=== PATIENT | female | born 1965 | race African-American/Black ===

== ENCOUNTER 2020-02-06 01:56 | Observation (INO) | payer BC, MEDICAID, SELFPAY ==
[2020-02-06] VITALS (14 sets, daily range): BP systolic 116–172; BP diastolic 63–88; PULSE 59–86; RESP 17–20; TEMP 36–36.5; O2SAT 95–100; BMI 61.4
--- NOTE | ~2020-02-06 | NM_ITS ---
EXAMINATION: NM thelma stress w perfusion DATE: 02/07/2020 09:59 INDICATION: Atypical chest pain. TECHNIQUE: Rest images were obtained following intravenous administration of 11 mCi Tc99m tetrofosmin (Myoview). The patient was infused intravenously with Lexiscan (Regadenoson). Then, 30.1 mCi Tc99m t etrofosmin (Myoview) was administered intravenously, and stress images were obtained. Data was recons tructed into short axis and horizontal and vertical long axis SPECT images. Gated SPECT images were a lso obtained. COMPARISON: None. FINDINGS: There is no definite reversible or fixed perfusion abnormality to suggest ischemia or infar ction. There is normal left ventricular chamber size, wall motion and ejection fraction. Left ventr icular ejection fraction measures >70%. IMPRESSION: 1. Normal myocardial perfusion at rest and during stress. 2. Left ventricular ejection fraction measuring >70%. Reviewed, dictated and finalized at location A.
--- NOTE | ~2020-02-06 | XR_ITS ---
EXAMINATION: XR chest 2V DATE: 02/06/2020 02:40 INDICATION: Left-sided chest pain TECHNIQUE: frontal and lateral views of the chest were obtained. COMPARISON: Chest CT dated 04/26/2019 FINDINGS: The lungs are clear with no focal airspace opacities, pulmonary edema, pleural effusion or pneumothor ax. The cardiomediastinal silhouette is normal. Mild to moderate thoracic spondylosis. IMPRESSION: 1. No acute cardiopulmonary disease. Reviewed, dictated and finalized at location A.
--- NOTE | 2020-02-06 02:07 | ED.EXTPRO ---
HPI - Extremity Problem General Chief complaint: Extremity Problem,Nontraumatic Stated complaint: swollen all over, pain Time Seen by Provider: 02/06/20 02:07 Source: patient Mode of arrival: ambulatory Limitations: no limitations History of Present Illness HPI Narrative: Patient is a 54-year-old female who presents to the emergency department for evaluation of chest pain and lower extremity swelling. Patient reports a nearly 2-week history of worsening leg swelling, feeling as if her abdomen is swollen, and chest pain described as a pressure over her central chest. Pain is mostly constant in nature, no exacerbating or relieving factors. Patient notices the pain at rest. She has some shortness of breath when laying flat. No known history of heart failure although she does have a history of bigeminy per patient. Patient does not follow with a machinist outside. No history of blood clot or coagulopathy. No fever, chills, cough. Last stress test was in 2014 per the patient. Related Data Allergies Allergy/AdvReac Type Severity Reaction Status Date / Time codeine AdvReac Severe EXTREME GI Verified 04/26/19 19:39 UPSET Review of Systems Review of Systems: Narrative: CONSTITUTIONAL: Denies fever, chills, or sweats. EYES: Denies visual changes, redness, or discharge. ENT: Denies rhinorrhea, congestion, sore throat, or otalgia. CARDIOVASCULAR: Reports chest pain and lower extremity edema RESPIRATORY: Denies cough or dyspnea. GASTROINTESTINAL: Denies abdominal pain, nausea, vomiting, or diarrhea. GENITOURINARY: Denies dysuria or hematuria. SKIN: Denies rash or itching. MUSCULOSKELETAL: Denies back pain, joint pain, or myalgia. NEUROLOGIC: Denies headache, numbness, or weakness. [facility] Past Medical History Medical History (Updated 02/06/20 @ 04:09 by Mary Jose MD) Arthritis Chronic anemia Diabetes Hyperlipidemia Hypertension Sleep apnea Surgical History Surgical History (Updated 02/06/20 @ 02:17 by Mary Jose MD) H/O spinal fusion H/O: hysterectomy Family History Family History (Updated 04/24/14 @ 07:13 by DOCTOR UNKNOWN) Grandparent Cerebrovascular accident Mother Cerebrovascular accident Family history of Alzheimer's disease Father Family history of Alzheimer's disease Malignant neoplasm of prostate Sibling Hypertension Family history of heart disease in male family member before age 55 Social History Social History Smoking status: Never smoker Exam Narrative: Exam Narrative: GENERAL: Awake, alert, conversant HEAD: Normocephalic, atraumatic. EYES: PERRLA and EOMI. ENT: Nares clear, no rhinorrhea or epistaxis. Mucous membranes moist. NECK: Supple. CHEST: No respiratory distress, breathing even and non labored HEART: Regular rate, sinus rhythm ABDOMEN: Obese, non distended, non tender EXTREMITIES: Normal range of motion. Pitting edema 3+ to the knees, significant ankle edema, no erythema or calf tenderness SKIN: Warm, dry, no rash. NEURO:No focal deficits. Alert and oriented x3 Course Vital Signs Vital signs: Vital Signs Temperature 36.3 C L 02/06/20 02:02 Pulse Rate 74 02/06/20 02:02 Respiratory Rate 20 02/06/20 02:02 Blood Pressure 172/72 H 02/06/20 02:02 Pulse Oximetry 95 02/06/20 02:02 Temperature 36.3 C L 02/06/20 02:02 Pulse Rate 74 02/06/20 02:02 Respiratory Rate 20 02/06/20 02:02 Blood Pressure 172/72 H 02/06/20 02:02 Pulse Oximetry 95 02/06/20 02:02 MDM - Extremity (Nontraumatic) MDM Narrative Medical decision making narrative: Patient presented for evaluation of chest pain and lower extremity edema. The time of initial assessment, patient does have lower extremity edema, pitting in nature, no sign of cellulitis. No calf tenderness. Patient with out acute ischemic changes on EKG. Symptoms initially seem most consistent with fluid overloaded state, patient is obese, an
[2020-02-06 02:28] LABS: Basophils Percent Auto 0.2 % (0.2-1.2); Eosinophils Absolute Auto 0.2 K/mm3 (0-0.3); Eosinophils Percent Auto 2.3 % (0-4.4); Hemoglobin 13.2 g/dL (12.0-15.0); Immature Granulocyte Absolute 0.02 K/mm3 (0.00-0.031); Immature Granulocyte Percent A 0.2 % (0-0.5); Lymphocytes Absolute Auto 2.18 K/mm3 (0.9-3.2); Lymphocytes Percent Auto 25.2 % (18.3-44.2); Mean Corpuscular HGB Conc 31.4 g/dl (32-36); Mean Corpuscular Hemoglobin 26.8 pg (26-34); Mean Corpuscular Volume 85.2 fl (80-100); Monocytes Absolute Auto 0.7 K/mm3 (0.1-0.6); Monocytes Percent Auto 8.3 % (2.6-8.5); Neutrophils Absolute Auto 5.5 K/mm3 (1.3-6.7); Neutrophils Percent Auto 63.8 % (45.5-73.1); Platelet Count Result 221 k/mm3 (150-375); Red Blood Count 4.93 M/mm3 (4.2-5.4); Red Cell Distribution Width 14.7 % (11.5-14.5); White Blood Count 8.7 K/mm3 (4.5-10.0)
--- NOTE | 2020-02-06 02:28 | ECG_ITS ---
Measurements Intervals [place] Rate: 70 P: 37 [place]: 168 QRS: 25 QRSD: 98 T: 40 QT: 442 QTc: 479 Interpretive Statements SINUS RHYTHM NONSPECIFIC T-WAVE ABNORMALITY BASELINE ARTIFACT- V4-V5 BORDERLINE ECG Electronically Signed On 02-06-2020 7:08:24 CDT by Luis Felipe Orellana D.O.
[2020-02-06] MEDS: NITROGLYCERIN SL 0.4 MG TABLET SUBLINGUAL (02:41)
[2020-02-06] MEDS: ASPIRIN 81 MG CHEWABLE TABLET 324 MG PO (02:41)
[2020-02-06 02:42] LABS: Prothrombin Time 12.6 Seconds (11.1-14.7)
[2020-02-06] MEDS: ACETAMINOPHEN 500 MG TABLET 1000 MG PO (02:42)
[2020-02-06 02:43] LABS: Partial Thromboplastin Time 30.2 SECONDS (22.3-36.8)
[2020-02-06 03:18] LABS: Alanine Aminotransferase 14 U/L (4-35); Alkaline Phosphatase 118 U/L (38-126); Aspartate Amino Transferase 19 U/L (14-36); Bilirubin,Total 0.8 mg/dL (0.2-1.3); Blood Urea Nitrogen 17 mg/dL (7-17); Calcium 9.1 mg/dL (8.4-10.2); Carbon Dioxide 31 mmol/L (22-30); Chloride 104 mmol/L (98-107); Estimated CRCL calculation 121 ml/min; Estimated Glomerular Filt Rate > 60; Glucose 121 mg/dL (65-105); Potassium 4.4 mmol/L (3.4-5.0); Sodium 138 mmol/L (137-145)
[2020-02-06 03:38] LABS: NT Pro B Type Natriuretic Pept 41 PG/ML (5-100); Troponin I < 0.012 ng/mL (0.000-0.034)
--- NOTE | 2020-02-06 05:10 | ADMGEN ---
This patient, Carin Haque, was admitted to IMU Room 213-01. Patient/family oriented to hospital policies and general routines including ID bracelet, bed and alarms, visiting hours, pain management, procedures, bathroom and other care routines, personal items, smoking policy, room service/diet, and visiting hours. Valuables list has been completed. Information on how to activate the Rapid Response Team has been discussed. Patient/Family are encouraged to report perceived risks to care and to ask questions if they do not understand what they are told or what they should do. Darling Craig gave report
[2020-02-06 06:35] LABS: Troponin I < 0.012 ng/mL (0.000-0.034)
--- NOTE | 2020-02-06 07:12 | ECHO_ITS ---
Patient Info Name: Carin Haque Age: 54 years : 1965 Gender: Female Ht: 65 in Wt: 369 lbs BSA: 2.88 m2 HR: 61 bpm BP: 141 / 80 mmHg Heart Rhythm: Sinus Rhythm Technical Quality: Good Exam Date: 02/06/2020 12:31 PM Exam Location: [facility] Pulmonary Patient Status: Outpatient Admit Date: 02/06/2020 Staff Ordering Physician: Mellissa Gardner MD (alex/pearl) Beam Racker: Michele Wakefield, RDCS, RT Attending Provider: Jacob Young MD Exam Type: CA echo dop color flow w con Study Info Indications R06.02 - Shortness of breath Complete two-dimensional, color flow and Doppler transthoracic echocardiogram is performed with contrast to opacify the left ventricle and to improve the deliniation of the left ventricle endocardial borders. Summary 1. Left ventricular chamber dimension is mildly enlarged. 2. Left ventricular systolic function is normal, estimated at 65-70%. 3. There is mildly increased left ventricular wall thickness. 4. Left ventricular septal wall motion is normal. 5. The left ventricular diastolic function is grade I diastolic dysfunction. 6. Left atrial chamber dimension is mildly enlarged. 7. There is mild aortic valve regurgitation. 8. There is mild mitral valve regurgitation. 9. There is mild pulmonic regurgitation. 10. The aorta arch size is mildly dilated measuring 3.70 cm. Left Ventricle Left ventricular chamber dimension is mildly enlarged. Left ventricular systolic function is normal, estimated at 65-70%. There is mildly increased left ventricular wall thickness. Left ventricular septal wall motion is normal. The left ventricular diastolic function is grade I diastolic dysfunction. Right Ventricle Right ventricular chamber dimension is normal. Right ventricular systolic function is normal. Left Atria Left atrial chamber dimension is mildly enlarged. Right Atria Right atrial chamber dimension is normal. Atrial Septum Intact interatrial septum visualized by color flow imaging. Aortic Valve The aortic valve is trileaflet. There is mild aortic valve sclerosis. There is no aortic valve stenosis. There is mild aortic valve regurgitation. Pulmonic Valve The pulmonic valve is normal. There is no pulmonic valve stenosis. There is mild pulmonic regurgitation. Mitral Valve The mitral valve has normal leaflets. There is no mitral valve stenosis. There is mild mitral valve regurgitation. Tricuspid Valve The tricuspid valve leaflets are normal. There is no significant tricuspid valve stenosis. There is trace tricuspid valve regurgitation. Pericardium/Pleural The pericardium appears normal. There is no pericardial effusion. Inferior Vena Cava Dilated inferior vena cava with <50% collapse upon inspiration consistent with elevated right atrial pressure, 15 mmHg. Aorta The aorta arch size is mildly dilated measuring 3.70 cm. The aortic root size at the sinus of Valsalva is normal. The prox ascending aorta size is normal. Left Ventricular Outflow Tract Name Value Normal LVOT 2D LVOT Diameter 2.21 cm LVOT Doppler LVOT Peak Gradient 5
[2020-02-06] MEDS: ASPIRIN 81 MG CHEWABLE TABLET PO (08:16)
[2020-02-06 09:53] LABS: Troponin I < 0.012 ng/mL (0.000-0.034)
--- NOTE | 2020-02-06 12:33 | PM.CNCAR ---
Assessment and Plan Assessment and plan (1) Atypical chest pain: Code(s): R07.89 - Other chest pain Status: Acute Assessment and Plan: Atypical. Has some features worrisome for angina but main complaint is some shortness of breath. We will keep her NPO after midnight for a Lexiscan myocardial perfusion study tomorrow. 2D echocardiogram with Doppler (2) Lower extremity edema: Code(s): R60.0 - Localized edema Status: Acute Assessment and Plan: BNP is normal. No evidence of significant left heart failure but could have pulmonary hypertension, right heart failure. Has sleep apnea which also may be contributing. Consider venous insufficiency also. Start furosemide 40 mg IV daily BMP in a.m. Low-salt diet Dietary lifestyle modification for weight loss (3) ANTONIA (obstructive sleep apnea): Code(s): G47.33 - Obstructive sleep apnea (adult) (pediatric) Status: Acute Assessment and Plan: Not on CPAP Will consult Dr. Sanz further workup and treatment (4) Hypertension associated with diabetes: Code(s): E11.59 - Type 2 diabetes mellitus with other circulatory complications; I10 - Essential (primary) hypertension Status: Acute Assessment and Plan: On amlodipine which can be also contributing to her edema Will start her on losartan 25 mg p.o. daily. She apparently has an LAURYN-inhibitor cough in the past Check a TSH, free T4 level as well as magnesium level (5) Hyperlipidemia associated with type 2 diabetes mellitus: Code(s): E11.69 - Type 2 diabetes mellitus with other specified complication; E78.5 - Hyperlipidemia, unspecified Status: Acute Assessment and Plan: Not on statin for unknown reasons History of Present Illness History of Present Illness Consult date/time: 02/06/20 12:33 Requesting physician: Mary Jose MD Consult reason: chest pain and shortness of breath Reason For Visit: Atypical chest pain, leg edema Narrative: Date of service 02/06/2020: History: Patient is a 54-year-old female who has a history of ventricular bigeminy and was evaluated by Cardiology at [facility] in the past. She states she did have a stress test and an echocardiogram and a Holter monitor. Reportedly had around 8000 PVCs. It was not felt to be significant enough to pursue any further workup or intervention. Stress test was reportedly unremarkable. This workup was in 2013 or 2014 and she has not seen Cardiology since that time. She came to the hospital yesterday because of worsening edema shortness of breath and some chest symptoms. Patient states that she has always had some intermittent swelling in her legs and feet but over the past couple weeks her swelling has become more prominent and is involving her chest and arms and hands including the feet and legs. She does not use excessive amounts of salt. She also has been short of breath when doing things such as walking around the house. She does describe some orthopnea and rare paroxysmal nocturnal dyspnea. She has also been having some squeezing in the chest sometimes with activity and the symptoms all improved whenever she rests and sits down. Symptoms do sometimes going to the left arm. She does have some rare and occasional palpitations but otherwise no syncope. She does have sleep apnea but does not use a CPAP. She also has a history of hypertension, diabetes, hyperlipidemia. Review of Systems Review of Systems: All systems reviewed & are unremarkable except as noted in HPI and below Constitutional: Constitutional: Denies lethargy Eyes: Eyes: Denies blurry vision ENT: Reports Normal hearing present Cardiovascular: Cardiovascular: Reports chest pain, Reports pedal edema and Reports leg edema Respiratory: Respiratory: Reports dyspnea Gastrointestinal: Gastrointestinal: Denies abdominal pain Genitourinary: Genitourinary: Denies flank pain Musculoskeletal: Musculoskeletal: De
[2020-02-06] MEDS: PERFLUTREN LIPID MICROSPHERES 1.5 ML VIAL DILUTED TO 10 ML TOTAL VOLUME IV PUSH (13:11)
[2020-02-06] MEDS: LOSARTAN POTASSIUM 25 MG TABLET PO (14:02)
[2020-02-06] MEDS: FUROSEMIDE INJ 40 MG/4 ML VIAL IV PUSH (14:02)
--- NOTE | 2020-02-06 14:27 | PM.CNPUL ---
Assessment and Plan Assessment and plan (1) ANTONIA (obstructive sleep apnea): Code(s): G47.33 - Obstructive sleep apnea (adult) (pediatric) Status: Acute Assessment and Plan: - Will order outpatient split night sleep study - ABG to r/o hypercarbia which may suggest concimttant Obesity Hypoventilation syndrome - would caution with over diuresis which may cause contraction alkalosis. Consider decreasing dose of lasix. - consider alternative to home amlodipine as this can cause or contribute to LE edema - patient to f/u with us 1-2 weeks after sleep study. History of Present Illness History of Present Illness Consult date: 02/06/20 Chief complaint: Atypical chest pain, leg edema Narrative: 54 y/o obese female with previous diagnosed ANTONIA, HTN, DM, hyperlipidemia, OA presents with severe lower and upper extremity edema for past two weeks. I was consulted for possible ANTONIA causing PHTN and pulmonary edema. No signs of left sided heart failure is present. A 2D echo is pending and BNP on admission was normal at 41. She stopped using CPAP in 2017 because her health insurance was discontinued at the time. She used nasal pillows and was happy with treatment. She currently complains multiple night time awakenings, daytime fatigue and sleepiness, loud snoring and morning headaches Review of Systems Review of Systems: All systems reviewed & are unremarkable except as noted in HPI and below PMFSH Past Medical History Medical History (Updated 02/06/20 @ 12:38 by Baljit Ochoa MD) Arthritis Chronic anemia Diabetes Hyperlipidemia Hyperlipidemia associated with type 2 diabetes mellitus Hypertension Hypertension associated with diabetes ANTONIA (obstructive sleep apnea) Sleep apnea Surgical History Surgical History H/O spinal fusion H/O: hysterectomy Family History Family History Grandparent Cerebrovascular accident Mother Cerebrovascular accident Family history of Alzheimer's disease Father Family history of Alzheimer's disease Malignant neoplasm of prostate Sibling Hypertension Family history of heart disease in male family member before age 55 Social History Social History Smoking status: Never smoker Alcohol intake: never Substance use: never Gender identity (if verbalized by the patient): Female Spiritual care concerns: No Meds Home Medications and Allergies Home Medications Medication Instructions Recorded Confirmed Type amlodipine [Norvasc] 5 mg PO DAILY 02/06/20 02/06/20 History loratadine 10 mg 02/06/20 History omeprazole 20 mg PO DAILY 02/06/20 02/06/20 History Allergies Allergy/AdvReac Type Severity Reaction Status Date / Time codeine AdvReac Severe EXTREME GI Verified 04/26/19 19:39 UPSET Vital Signs Vital Signs - 24 hr 02/06/20 02:02 02/06/20 04:45 02/06/20 04:55 Temperature 36.3 C L 36.3 C L Pulse Rate 74 68 61 Respiratory Rate 20 17 18 Blood Pressure 172/72 H 124/66 141/80 H Pulse Oximetry 95 97 99 02/06/20 06:00 02/06/20 08:00 02/06/20 10:00 Temperature 36.0 C L Pulse Rate 66 86 68 Respiratory Rate 18 Blood Pressure 122/76 Pulse Oximetry 97 02/06/20 12:00 Temperature 36.0 C L Pulse Rate 59 L Respiratory Rate 20 Blood Pressure 148/88 H Pulse Oximetry Exam Const: General: comfortable and no acute distress HENMT: Mouth: Yes moist mucous membranes Eyes: General: appearance normal, both eyes and all related structures Neck: Neck: supple and no JVD Resp: Auscultation: clear to auscultation bilaterally, no crackles, no rales, no rhonchi and no wheezes Cardio: Rate: regular rate Rhythm: regular rhythm Heart sounds: Murmur heart sound present (loudest inpulmonic area ) systolic GI: GI Palp: Yes Soft to palpation Auscultation: normal bowel sounds
[2020-02-06 15:11] LABS: Alveolar/Arterial O2 Gradient 23.4 mmHg; Base Excess ABG 1.8 mEq/l (+/-2.0); Fractional Inspired Oxygen 21 %; HCO3 ABG 26.8 mEq/l (22.0-26.0); Oxygen Content ABG 17.8 %vol (16.0-22.0); Oxygen Saturation ABG 94.9 % (95.0-100.0); PCO2 ABG 43.7 mmHg (35.0-45.0); PO2 FiO2 Ratio Arterial Blood 3.52 %; Total Hemoglobin 13.6 g/dL (12.0-18.0); pH ABG 7.406 (7.350-7.450)
[2020-02-06 15:12] LABS: Device ROOM AIR; Modified Allen's Test Pass; Site Drawn RIGHT RADIAL
[2020-02-06 15:36] LABS: Blood Urea Nitrogen 16 mg/dL (7-17); Calcium 9.1 mg/dL (8.4-10.2); Carbon Dioxide 33 mmol/L (22-30); Chloride 101 mmol/L (98-107); Estimated CRCL calculation 124 ml/min; Estimated Glomerular Filt Rate > 60; Glucose 141 mg/dL (65-105); Potassium 3.5 mmol/L (3.4-5.0); Sodium 138 mmol/L (137-145)
--- NOTE | 2020-02-06 18:03 | PM.IMHP ---
H&P: HPI History of Present Illness Chief complaint: Atypical chest pain, leg edema Narrative: Carin Haque is a 54 year old female morbidly obese with BMI of 61 with past medical history diabetes hypertension hyperlipidemia obstructive sleep apnea patient presented emergency department with a complaint pressure-like chest pain constant and feeling edematous all over, patient states her legs and arms hurting and feels swallen, patient 4 sets of cardiac enzymes are negative suggesting patient is not having myocardial infarction however patient is seen by shore worker recommending to further evaluate her symptoms patient will Lexiscan test tomorrow and further recommendation to follow will also do cardiac echo. Currently patient feeling comfortable Review of Systems Review of Systems: All systems reviewed & are unremarkable except as noted in HPI and below PMFSH Past Medical History Medical History (Updated 02/06/20 @ 12:38 by Baljit Ochoa MD) Arthritis Chronic anemia Diabetes Hyperlipidemia Hyperlipidemia associated with type 2 diabetes mellitus Hypertension Hypertension associated with diabetes ANTONIA (obstructive sleep apnea) Sleep apnea Surgical History Surgical History H/O spinal fusion H/O: hysterectomy Family History Family History Grandparent Cerebrovascular accident Mother Cerebrovascular accident Family history of Alzheimer's disease Father Family history of Alzheimer's disease Malignant neoplasm of prostate Sibling Hypertension Family history of heart disease in male family member before age 55 Social History Social History Smoking status: Never smoker Alcohol intake: never Substance use: never Gender identity (if verbalized by the patient): Female Spiritual care concerns: No Meds Home Medications and Allergies Home Medications Medication Instructions Recorded Confirmed Type amlodipine [Norvasc] 5 mg PO DAILY 02/06/20 02/06/20 History loratadine 10 mg 02/06/20 History omeprazole 20 mg PO DAILY 02/06/20 02/06/20 History Allergies Allergy/AdvReac Type Severity Reaction Status Date / Time codeine AdvReac Severe EXTREME GI Verified 04/26/19 19:39 UPSET Vital Signs Vital Signs - 24 hr 02/06/20 02:02 02/06/20 04:45 02/06/20 04:55 Temperature 97.3 F L 97.3 F L Pulse Rate 74 68 61 Respiratory Rate 20 17 18 Blood Pressure 172/72 H 124/66 141/80 H Pulse Oximetry 95 97 99 02/06/20 06:00 02/06/20 08:00 02/06/20 10:00 Temperature 96.8 F L Pulse Rate 66 86 68 Respiratory Rate 18 Blood Pressure 122/76 Pulse Oximetry 97 02/06/20 12:00 02/06/20 14:00 02/06/20 16:00 Temperature 96.8 F L 97.7 F Pulse Rate 59 L 69 65 Respiratory Rate 20 18 Blood Pressure 148/88 H 146/83 H Pulse Oximetry 97 Exam Narrative: Exam Narrative: Morbidly obese with a BMI of 61 Const: General: comfortable and no acute distress HENMT: General nose exam: Normal nares present Mouth: Yes moist mucous membranes Eyes: General: appearance normal, both eyes and all related structures Sclera: sclerae normal Neck: Neck: supple Resp: Effort & Inspection: normal respiratory effort Auscultation: clear to auscultation bilaterally Cardio: Rate: regular rate Rhythm: regular rhythm GI: GI Palp: Yes Soft to palpation Other: Morbidly obese Skin: General skin exam: normal color Neuro: Speech: normal speech Sensory Exam: normal sensation Extrem: General: normal to inspection Psych: Affect: Anxious affect present H&P: Results Labs Labs: Short CBC 02/06/20 Range/Units 02:22 WBC 8.7 (4.5-10.0) K/mm3 Hgb 13.2 (12.0-15.0) g/dL Hct 42.0 (37.0-47.0) % Plt Count 221 (150-375) k/mm3 [facility] 02/06/20 02/06/20 02:51 15:05 Sodium 138 138 Potassium 4.4 3.5 Chlorid
[2020-02-06 20:17] LABS: T4 Thyroxine 9.73 ug/dL (5.53-11.0)
[2020-02-07] VITALS (10 sets, daily range): BP systolic 115–135; BP diastolic 52–70; PULSE 6–85; RESP 16–20; TEMP 36.1–36.3; O2SAT 95–98
--- NOTE | 2020-02-07 08:58 | PM.PNCARD ---
Progress Note: A&P Assessment and Plan (1) Atypical chest pain: Code(s): R07.89 - Other chest pain Status: Acute Assessment and Plan: Atypical. Has some features worrisome for angina but main complaint is some shortness of breath. Lexiscan is pending today. But chest pain has resolved (2) Lower extremity edema: Code(s): R60.0 - Localized edema Status: Acute Assessment and Plan: BNP is normal. No evidence of significant left heart failure but could have pulmonary hypertension, right heart failure. Has sleep apnea which also may be contributing. Consider venous insufficiency also. potassium chloride 40 mg p.o. x1. After her dose of IV furosemide today, would send her home on 20 mg p.o. furosemide daily Low-salt diet Dietary lifestyle modification for weight loss (3) ANTONIA (obstructive sleep apnea): Code(s): G47.33 - Obstructive sleep apnea (adult) (pediatric) Status: Acute Assessment and Plan: Not on CPAP appreciate Dr. Sanz (4) Hypertension associated with diabetes: Code(s): E11.59 - Type 2 diabetes mellitus with other circulatory complications; I10 - Essential (primary) hypertension Status: Acute Assessment and Plan: On amlodipine which can be also contributing to her edema continue losartan 25 mg p.o. daily. She apparently has an LAURYN-inhibitor cough in the past (5) Hyperlipidemia associated with type 2 diabetes mellitus: Code(s): E11.69 - Type 2 diabetes mellitus with other specified complication; E78.5 - Hyperlipidemia, unspecified Status: Acute Assessment and Plan: Not on statin for unknown reasons. Will check a lipid panel on her today. Will need a statin but will defer to her primary care provider If her stress test is negative, she can likely be discharged home today or at the latest tomorrow morning Subjective Date/time seen: 02/07/20 08:58 Interval history: Reason for admission: Chest pain, swelling Date of service 02/07/2020: She feels better today. Less swollen. No shortness of breath or chest pain. Review of Systems Review of Systems: All systems reviewed & are unremarkable except as noted in HPI and below Constitutional: Constitutional: Denies fatigue, Denies headache(s) and Denies lethargy Eyes: Eyes: Denies blurry vision ENT: Reports Normal hearing present and Denies headache(s) Cardiovascular: Cardiovascular: Reports chest pain, Reports pedal edema, Reports leg edema and Reports dyspnea Respiratory: Respiratory: Reports dyspnea Gastrointestinal: Gastrointestinal: Denies abdominal pain Genitourinary: Genitourinary: Denies flank pain Musculoskeletal: Musculoskeletal: Denies back pain and Denies numbness Integumentary/Breasts: Skin/Breast: Denies dry skin Neurologic: Reports Normal hearing present, Denies confusion, Denies headache(s) and Denies numbness Psychiatric: Psychiatric: Denies anxiety and Denies confusion Endocrine: Endocrine: Denies fatigue and Denies flushing Hematologic/Lymphatic: Hematologic/Lymphatic: Denies easy bleeding and Denies easy bruising Allergic/Immunologic: Allergic/Immunologic: Denies GI upset with certain foods Exam Narrative: Exam Narrative: Alert oriented. Const: General: no acute distress; No confusion Orientation/consciousness: No confusion HENMT: General nose exam: Normal nares present Eyes: Sclera: sclerae normal Neck: Neck: supple and no JVD Chest: Other: No reproducible chest wall pain to palpation Resp: Auscultation: clear to auscultation bilaterally Cardio: Rate: regular rate Rhythm: regular rhythm Skin: General skin exam: normal color Neuro: General: No confusion Cranial nerves: Yes Normal hearing present Cognition (Neuro): normal cognition Speech: normal speech Extrem: General: other ( Trivial lower extremity edema which is improved) Psych: Mental Status: mental status grossly normal Objective Data Nadiya
[2020-02-07] MEDS: ASPIRIN 81 MG CHEWABLE TABLET PO (09:41)
[2020-02-07] MEDS: FUROSEMIDE INJ 40 MG/4 ML VIAL IV PUSH (09:41)
[2020-02-07] MEDS: LOSARTAN POTASSIUM 25 MG TABLET PO (09:41)
[2020-02-07] MEDS: PANTOPRAZOLE 40 MG TABLET PO (09:41)
[2020-02-07] MEDS: POTASSIUM CHLORIDE 20 MEQ TABLET 40 MEQ PO (09:41)
[2020-02-07] MEDS: LORATADINE 10 MG TABLET PO (09:42)
[2020-02-07 10:34] LABS: Cholesterol 235 mg/dL (0-200); HDL Direct 40 mg/dL; Triglycerides 94 mg/dL (<150)
[2020-02-07 10:45] LABS: LDL Cholesterol Direct 170 mg/dL
--- NOTE | 2020-02-07 11:44 | PM.PNPUL ---
Progress Note: A&P Assessment and Plan (1) ANTONIA (obstructive sleep apnea): Code(s): G47.33 - Obstructive sleep apnea (adult) (pediatric) Status: Acute Assessment and Plan: - Echo shows no mention of pulmonary hypertension or RV enlargment or strain - consider decreasing lasix to 20 mg PO daily as bicarb level is climbing, today at 33. - outpatient split night sleep study ordered and f/u with our clinic and f/u in our clinic 2-3 weeks later. - consider discontinuing home amlodipine as this may have contributed or caused LE edema. Subjective Date/time seen: 02/07/20 11:44 Interval history: No complaints. ABG shows no significant hypercapnia making obesity hypoventilation unlikely. Edema in LE has decrease significantly Review of Systems Review of Systems: All systems reviewed & are unremarkable except as noted in HPI and below Exam Const: General: comfortable and no acute distress HENMT: Mouth: Yes moist mucous membranes Eyes: General: appearance normal, both eyes and all related structures Neck: Neck: supple and no JVD Resp: Auscultation: clear to auscultation bilaterally, no crackles, no rales, no rhonchi and no wheezes Cardio: Rate: regular rate Rhythm: regular rhythm Heart sounds: Murmur heart sound present (loudest inpulmonic area ) GI: GI Palp: Yes Soft to palpation Auscultation: normal bowel sounds Skin: General skin exam: normal color and no rashes or lesions noted Extrem: General: normal to inspection, edema and pedal edema (1+ in LE ) Objective Data Vital Signs Vital Signs: Vital Signs - 24 hr 02/06/20 12:00 02/06/20 14:00 02/06/20 16:00 Temperature 36.0 C L 36.5 C Pulse Rate 59 L 69 65 Respiratory Rate 20 18 Blood Pressure 148/88 H 146/83 H Pulse Oximetry 97 02/06/20 18:00 02/06/20 20:00 02/06/20 20:06 Temperature 36.3 C L Pulse Rate 75 73 75 Respiratory Rate 20 Blood Pressure 124/63 Pulse Oximetry 100 02/06/20 22:00 02/06/20 23:43 02/07/20 00:00 Temperature 36.1 C L Pulse Rate 70 65 60 Respiratory Rate 20 Blood Pressure 116/65 Pulse Oximetry 96 02/07/20 02:00 02/07/20 04:00 02/07/20 04:29 Temperature 36.1 C L Pulse Rate 64 66 6 L Respiratory Rate 20 Blood Pressure 115/52 L Pulse Oximetry 95 02/07/20 06:00 02/07/20 07:40 02/07/20 08:00 Temperature 36.3 C L Pulse Rate 85 71 66 Respiratory Rate 18 Blood Pressure 135/69 Pulse Oximetry 98 02/07/20 10:00 Temperature Pulse Rate 67 Respiratory Rate Blood Pressure Pulse Oximetry Intake/Output Intake/Output: Intake & Output 02/04/20 02/05/20 02/06/20 02/07/20 23:59 23:59 23:59 23:59 Intake Total 2680 400 Output Total 4300 1425 Balance -7960 -4638 Meds/Results Medications: Active Medications Generic Name Dose Route Start Last Admin Trade Name Freq PRN Reason Stop Dose Admin Acetaminophen 650 mg 02/06/20 04:10 Tylenol Tablet PO Q4H PRN Mild Pain (1-3) or Fever Aspirin 81 mg 02/06/20 08:00 02/07/20 09:41 Aspirin Chewable PO 81 mg DAILY@0800 PEEWEE Administration Atorvastatin Calcium 40 mg 02/08/20 09:00 Lipitor PO DAILY PEEWEE Furosemide 40 mg 02/06/20 12:45 02/07/20 09:41 Lasix Inj IV PUSH 40 mg DAILY PEEWEE Administration Loratadine 10 mg 02/07/20 09:00 02/07/20 09:42 Claritin PO 10 mg QAM PEEWEE Administration Losartan Potassium 25 mg 02/06/20 12:45 02/07/20 09:41 Cozaar PO 25 mg QAM PEEWEE Administration Pantoprazole Sodium 40 mg 02/07/20 09:00 02/07/20 09:41 Protonix PO 40 mg QAM PEEWEE Administration Radiology Results: ITS Impressions Chest X-Ray 02/06/20 07:31 IMPRESSION: 1. No acute cardiopulmonary disease. Lexiscan Stress Test 02/07/20 10:17 IMPRESSION: 1. Normal myocardial perfusion at rest and during stress. 2. Left ventricular ejection fraction measuring >70%. Labs Labs: Laboratory Results - last 24 hr 01/26
--- NOTE | 2020-02-07 12:41 | PM.DS ---
DS: Admitting Diagnosis Admitting Diagnosis Admitting Diagnosis: Other chest pain DS: Discharge Diagnosis Discharge Diagnosis (1) Atypical chest pain: Code(s): R07.89 - Other chest pain Status: Acute Assessment and Plan: Carin Haque is a 54 year old female morbidly obese with BMI of 61 with past medical history diabetes hypertension hyperlipidemia obstructive sleep apnea patient presented emergency department with a complaint pressure-like chest pain constant and feeling edematous all over, patient states her legs and arms hurting and feels swallen, patient 4 sets of cardiac enzymes are negative suggesting patient is not having myocardial infarction however patient is seen by die technician recommending to further evaluate her symptoms patient will Lexiscan test tomorrow and further recommendation to follow will also do cardiac echo. Currently patient feeling comfortable (2) ANTONIA (obstructive sleep apnea): Code(s): G47.33 - Obstructive sleep apnea (adult) (pediatric) Status: Acute Assessment and Plan: Patient is seen by crossing watchman recommending sleep study outpatient further evaluation (3) Lower extremity edema: Code(s): R60.0 - Localized edema Status: Acute Assessment and Plan: Etiology uncertain BNP is normal cardiac echo is pending patient being gently diuresed with precaution volume contraction may lead to contraction alkalosis (4) Hypertension associated with diabetes: Code(s): E11.59 - Type 2 diabetes mellitus with other circulatory complications; I10 - Essential (primary) hypertension Status: Acute Assessment and Plan: Will continue home regimen and monitor (5) Hyperlipidemia associated with type 2 diabetes mellitus: Code(s): E11.69 - Type 2 diabetes mellitus with other specified complication; E78.5 - Hyperlipidemia, unspecified Status: Acute Assessment and Plan: Will do the lipid panel DS: Summary Hospital Course Reason for hospitalization: Carin Haque is a 54 year old female morbidly obese with BMI of 61 with past medical history diabetes hypertension hyperlipidemia obstructive sleep apnea patient presented emergency department with a complaint pressure-like chest pain constant and feeling edematous all over, patient states her legs and arms hurting and feels swallen, patient 4 sets of cardiac enzymes are negative suggesting patient is not having myocardial infarction however patient is seen by die technician recommending to further evaluate her symptoms patient will Lexiscan test tomorrow and further recommendation to follow will also do cardiac echo. Currently patient feeling comfortable Hospital Course: Carin Haque is a 54 year old female morbidly obese with BMI of 61 with past medical history diabetes hypertension hyperlipidemia obstructive sleep apnea patient presented emergency department with a complaint pressure-like chest pain constant and feeling edematous all over, patient states her legs and arms hurting and feels swallen, patient 4 sets of cardiac enzymes are negative suggesting patient is not having myocardial infarction however patient is seen by die technician recommending to further evaluate her symptoms patient will Lexiscan test tomorrow and further recommendation to follow will also do cardiac echo. Currently patient feeling comfortable, recent Lexiscan was essentially normal is really his cardiac echo patient clinically stable will discharge the patient home patient will need outpatient sleep study patient is seen by crossing watchman Status at Discharge Functional status at discharge: uses cane/walker Overall status at discharge: patient is back to baseline Time Spent with Patient Time attestation: Total time spent providing and/or coordinating discharge services: Patient was seen and examined at the time of the discharge Condition at discharge is stable Code status: Full code. Time spent preparing discharge
--- NOTE | 2020-02-07 12:42 | EST_ITS ---
Patient Info Name: Carin Haque Age: 54 years : 1965 Gender: Female Ht: 65 in Wt: 369 lbs BSA: 2.88 m2 Exam Date: 02/07/2020 8:32 AM Exam Location: [facility] Stress Patient Status: Inpatient Admit Date: 02/06/2020 Staff Ordering Physician: Baljit Ochoa MD Attending Provider: Jacob Young MD Exercise Technologist: Flory Akers RDCS Exercise Physician: Baljit Ochoa MD Exam Type: CA stress thelma w NM Study Info Indications R07.9 - Chest pain, unspecified A regadenoson stress test was performed. Summary 1. Please correlate with nuclear medicine images, reported separately. 2. No abnormal ST-T wave changes with lexiscan. Protocol: Lexiscan Stress ECG Details Stage: REST Duration (min): 2 min : 3 sec HR (bpm): 64 SBP (mmHg): 138 DBP (mmHg): 80 Stage: REST Duration (min): 15 min : 8 sec HR (bpm): 60 SBP (mmHg): 138 DBP (mmHg): 80 Stage: STAGE 1 Duration (min): 0 min : 59 sec HR (bpm): 83 SBP (mmHg): 133 DBP (mmHg): 95 Stage: RECOVERY Duration (min): 1 min : 0 sec HR (bpm): 88 SBP (mmHg): 157 DBP (mmHg): 89 Stage: RECOVERY Duration (min): 2 min : 0 sec HR (bpm): 84 SBP (mmHg): 157 DBP (mmHg): 89 Stage: RECOVERY Duration (min): 3 min : 0 sec HR (bpm): 80 SBP (mmHg): 148 DBP (mmHg): 80 Stage: RECOVERY Duration (min): 3 min : 4 sec HR (bpm): 80 SBP (mmHg): 148 DBP (mmHg): 80 Rest HR: 60 bpm Peak HR: 91 bpm Rest Sys BP: 138 mmHg Peak Sys BP: 157 mmHg Max Pred HR: 164 bpm % Max Pred HR: 55 % Target HR: 139 bpm Max RPP: 14,287 bpm*mmHg BP Response: Normal blood pressure response Termination Reason: Completed protocol Cardiac Symptoms: None Total Time: 1 min : 0 sec Rest Putnam BP: 80 mmHg Peak Putnam BP: 89 mmHg Total Dose: 0.4 mg Resting ECG Normal sinus rhythm - normal ECG. Stress ECG No abnormal ST/T wave changes with exercise. Arrhythmias None. Report Signatures
== END 2020-02-07 13:20 | disposition home or self-care (01) ==
LOC: ANHED 04:21 → ANHIMU 05:55
PROVIDERS: Internal Medicine Cardiovascular Disease; Internal Medicine Critical Care Medicine; Admitting Provider Family Medicine; Emergency Provider Emergency Medicine; Visit Provider Family Medicine
DX: R07.89 Other chest pain (principal); G47.33 Obstructive sleep apnea (adult) (pediatric); R60.0 Localized edema; R06.02 Shortness of breath; E11.59 Type 2 diabetes mellitus with other circulatory complications; I10 Essential (primary) hypertension; E11.69 Type 2 diabetes mellitus with other specified complication; E78.5 Hyperlipidemia, unspecified; M19.90 Unspecified osteoarthritis, unspecified site; E66.01 Morbid (severe) obesity due to excess calories; Z68.44 Body mass index [BMI] 60.0-69.9, adult; Z98.1 Arthrodesis status; Z79.899 Other long term (current) drug therapy
CPT/HCPCS: 36415; 36600; 71046; 78452; 80048; 80053; 80061; 82805; 83735; 83880; 84436; 84443; 84484; 85025; 85610; 85730; 93005; 93017; 96374; 96375; 96376; 99285; A9270; A9502; C8929; G0378; J1940; J2785; Q9957

== ENCOUNTER 2020-03-05 17:09 | Outpatient (CLI) | payer BC, SELFPAY ==
--- NOTE | ~2020-03-05 | CT_ITS ---
EXAMINATION: CT abdomen pelvis w con DATE: 03/05/2020 17:42 INDICATION: Abdominal pain. Intestinal obstruction. TECHNIQUE: Computed tomography (CT) of the abdomen and pelvis was performed with 100 cc Omnipaque 350 intravenous contrast. The dose-length product was 1561.54 mGy-cm. Automated exposure control and ite rative reconstruction technique were employed. COMPARISON: CT dated 04/01/2017 FINDINGS: Lung bases unremarkable. Heart size normal. No significant pleural or pericardial effusion. The liver, spleen, pancreas, adrenal glands and kidneys are unremarkable. Gallbladder is present. Non obstructive bowel gas pattern. No free air or free fluid. Small fat-containing umbilical hernia. Ther e is lower thoracic and lumbar spondylosis. No acute osseous abnormality. IMPRESSION: 1. No acute abdominal abnormality. No findings to account for patient's symptoms. Reviewed, dictated and finalized at location A. IMPRESSION: 1. No acute abdominal abnormality. No findings to account for patient's symptom s.
== END 2020-03-05 17:10 | disposition home or self-care (01) ==
DX: R10.9 Unspecified abdominal pain (principal); K56.609 Unspecified intestinal obstruction, unspecified as to partial versus complete obstruction
CPT/HCPCS: 74177; Q9967

== ENCOUNTER 2020-04-25 22:18 | Emergency (ER) | payer BC, SELFPAY ==
[2020-04-25 22:28] VITALS: BP 161/82; PULSE 80; RESP 20; TEMP 36.3; O2SAT 99
--- NOTE | 2020-04-26 00:19 | ED.EYEPROB ---
HPI - Eye Problem General Chief complaint: Eye Problems Stated complaint: poked in left eye. Time Seen by Provider: 04/25/20 23:47 Source: patient Mode of arrival: ambulatory Limitations: no limitations History of Present Illness HPI Narrative: This patient is a 54 year old female who presents for evaluation of left eye injury. Patient states 4 hours ago she was accidentally poked in her left eye. She reports initially she has some pain but that has resolved. She does continue to feel some irritation. She has light sensitivity and her eye was watery initial. She does not wear contact lenses. She has no blurred vision. Related Data Home Medications Medication Instructions Recorded Confirmed loratadine [Allergy Relief 10 mg PO DAILY 02/06/20 02/06/20 (loratadine)] omeprazole 20 mg PO DAILY 02/06/20 02/06/20 Allergies Allergy/AdvReac Type Severity Reaction Status Date / Time codeine AdvReac Severe EXTREME GI Verified 04/25/20 22:31 UPSET Review of Systems Review of Systems: All systems reviewed & are unremarkable except as noted in HPI and below Constitutional: Constitutional: Denies chills and Denies fever(s) [facility] Past Medical History Medical History (Updated 04/26/20 @ 00:28 by Genny Sam MD) Arthritis Chronic anemia Diabetes Hyperlipidemia Hyperlipidemia associated with type 2 diabetes mellitus Hypertension Hypertension associated with diabetes ANTONIA (obstructive sleep apnea) Sleep apnea Surgical History Surgical History H/O spinal fusion H/O: hysterectomy Social History Social History Smoking status: Never smoker Alcohol intake: never Substance use: never Gender identity (if verbalized by the patient): Female Spiritual care concerns: No Exam Const: General: no acute distress and alert Orientation/consciousness: patient oriented x3 HENMT: Head: atraumatic Face and sinus: face symmetric Eyes: Alignment and Position: alignment normal Eyelids: eyelids normal Conjunctivae: conjunctivae normal Sclera: sclerae normal Cornea: corneas normal and fluorescein used Pupils: Equal, round and reactive pupils present EOM: EOMs intact bilaterally Course Reevaluation(s) Reevaluation #1: I discussed with patient that she has no corneal abrasion. no hyphema. Date: 04/26/20 Time: 00:22 Vital Signs Vital signs: Vital Signs Temperature 97.3 F L 04/25/20 22:28 Pulse Rate 80 04/25/20 22:28 Respiratory Rate 20 04/25/20 22:28 Blood Pressure 161/82 H 04/25/20 22:28 Pulse Oximetry 99 04/25/20 22:28 Temperature 97.9 F 04/26/20 01:09 Pulse Rate 84 04/26/20 01:09 Respiratory Rate 16 04/26/20 01:09 Blood Pressure 164/89 H 04/26/20 01:09 Pulse Oximetry 99 04/26/20 01:09 Discharge Plan Discharge Clinical Impression: Contusion of eye, left Patient Disposition: Home, Self-Care Condition: Stable Instructions: Antibiotic Form, Eye Pain (ED) Additional Instructions: Today you were evaluated after being spray machine tender the eye. I did not find any abrasion that requires antibiotics. You can use over the counter eye drops such as zaditor or lumify for eye irritation. If your eye symptoms dont resolve after 48 hours follow up with an eye doctor. Prescriptions: No Action omeprazole 20 mg capsule,delayed release(DR/EC) 20 mg PO DAILY RF: 0 loratadine [Allergy Relief (loratadine)] 10 mg tablet 10 mg PO DAILY RF: 0 atorvastatin 40 mg Tablet 40 mg PO DAILY Qty: 30 RF: 1 losartan 25 mg Tablet 25 mg PO QAM Qty: 30 RF: 1 aspirin [Children's Aspirin] 81 mg Tablet,Chewable 81 mg PO DAILY@0800 Qty: 30 RF: 0 furosemide [Lasix] 20 mg tablet 20 mg PO DAILY Qty: 30 RF: 0 Follow-up/Referrals: PHYSICIAN NOT ON STAFF,NONSTAFF [Primary Care Provider] - Discharge Date/Time: 04/26/20 01:10
[2020-04-26 01:09] VITALS: BP 164/89; PULSE 84; RESP 16; TEMP 36.6; O2SAT 99
== END 2020-04-26 01:10 | disposition home or self-care (01) ==
PROVIDERS: Emergency Provider General Practice
DX: S05.12XA Contusion of eyeball and orbital tissues, left eye, initial encounter (principal); M19.90 Unspecified osteoarthritis, unspecified site; E11.9 Type 2 diabetes mellitus without complications; E78.5 Hyperlipidemia, unspecified; I10 Essential (primary) hypertension; G47.33 Obstructive sleep apnea (adult) (pediatric); Z98.1 Arthrodesis status; W51.XXXA Accidental striking against or bumped into by another person, initial encounter
CPT/HCPCS: 99282; A9270

== ENCOUNTER 2020-05-26 17:26 | Outpatient (CLI) | payer BC, SELFPAY ==
--- NOTE | ~2020-05-26 | MM_ITS ---
EXAMINATION: MM screening [facility] BI w mehdi HISTORY: Screening mammogram TECHNIQUE: Craniocaudal and mediolateral oblique 3-D tomosynthesis images were obtained and synthetic 2-D images were generated. CAD analysis was submitted and interpreted. COMPARISON: 04/16/2019 BREAST PARENCHYMAL COMPOSITION: The breasts are almost entirely fatty. FINDINGS: Scattered benign-appearing calcifications are present. There is no evidence of suspicious m ass, calcification, or architectural distortion to suggest malignancy in either breast. There has bee n no suspicious interval change. IMPRESSION: 1. No mammographic evidence of malignancy. 2. Recommend routine screening mammography in one year. BI-RADS Category 2: Benign finding(s). Reviewed, dictated and finalized at location A.
== END 2020-05-26 17:27 | disposition home or self-care (01) ==
LOC: ANHIMG 17:31
DX: Z12.31 Encounter for screening mammogram for malignant neoplasm of breast (principal)
CPT/HCPCS: 77063; 77067

== ENCOUNTER 2021-03-17 21:51 | Emergency (ER) | payer BC, SELFPAY ==
--- NOTE | ~2021-03-17 | XR_ITS ---
EXAMINATION: XR chest 1V portable EXAM DATE: 03/17/2021 22:30 INDICATION: Dyspnea, midsternal chest pain. TECHNIQUE: Portable AP frontal chest x-ray was obtained. Comparison is made to prior examination from 02/06/2020. FINDINGS: The lungs are clear. There are no pleural effusions. Cardiac silhouette is prominent but magnified on this AP technique. There is no pneumothorax suspected. The bones and soft tissues are unremarkable. IMPRESSION: No acute cardiopulmonary findings. Reviewed, dictated and finalized at location G.
--- NOTE | 2021-03-17 21:53 | ECG_ITS ---
Measurements Intervals [place] Rate: 84 P: 57 IL: 140 QRS: 42 QRSD: 98 T: 39 QT: 410 QTc: 485 Interpretive Statements SINUS RHYTHM POSSIBLE LEFT ATRIAL ENLARGEMENT BORDERLINE ECG Electronically Signed On 03-18-2021 6:28:36 CDT by Luis Felipe Orellana D.O.
[2021-03-17 21:56] VITALS: BP 133/70; PULSE 84; RESP 19; TEMP 36.6; O2SAT 98
[2021-03-17] MEDS: FUROSEMIDE INJ 40 MG/4 ML VIAL IV PUSH (22:35)
[2021-03-17] MEDS: ASPIRIN 81 MG CHEWABLE TABLET 324 MG PO (22:36)
[2021-03-17 22:56] LABS: Basophils Percent Auto 0.3 % (0.2-1.2); Eosinophils Absolute Auto 0.2 K/mm3 (0-0.3); Eosinophils Percent Auto 2.6 % (0-4.4); Hematocrit 38.2 % (37.0-47.0); Hemoglobin 12.1 g/dL (12.0-15.0); Immature Granulocyte Absolute 0.02 K/mm3 (0.00-0.031); Immature Granulocyte Percent A 0.3 % (0-0.5); Lymphocytes Absolute Auto 2.11 K/mm3 (0.9-3.2); Lymphocytes Percent Auto 28.9 % (18.3-44.2); Mean Corpuscular HGB Conc 31.7 g/dl (32-36); Mean Corpuscular Hemoglobin 26.8 pg (26-34); Mean Corpuscular Volume 84.5 fl (80-100); Mean Platelet Volume 11.1 fl (7.4-10.4); Monocytes Absolute Auto 0.5 K/mm3 (0.1-0.6); Monocytes Percent Auto 7.3 % (2.6-8.5); Neutrophils Absolute Auto 4.4 K/mm3 (1.3-6.7); Neutrophils Percent Auto 60.6 % (45.5-73.1); Platelet Count Result 188 k/mm3 (150-375); Red Blood Count 4.52 M/mm3 (4.2-5.4); Red Cell Distribution Width 14.7 % (11.5-14.5); White Blood Count 7.3 K/mm3 (4.5-10.0)
[2021-03-17 23:17] LABS: Alanine Aminotransferase 23 U/L (4-35); Albumin Level 3.9 g/dL (3.5-5.1); Alkaline Phosphatase 101 U/L (38-126); Anion Gap 7 mmol/L (8-16); Aspartate Amino Transferase 25 U/L (14-36); Bilirubin,Total 0.8 mg/dL (0.2-1.3); Blood Urea Nitrogen 12 mg/dL (7-17); Calcium 9.1 mg/dL (8.4-10.2); Carbon Dioxide 28 mmol/L (22-30); Chloride 104 mmol/L (98-107); Estimated CRCL calculation 123 ml/min; Estimated Glomerular Filt Rate > 60; Glucose 193 mg/dL (65-110); INR 0.9; Lipase 85 U/L (23-300); Potassium 3.8 mmol/L (3.4-5.0); Prothrombin Time 12.2 Seconds (11.1-14.7); Sodium 139 mmol/L (137-145)
[2021-03-17 23:18] LABS: Partial Thromboplastin Time 29.2 SECONDS (22.3-36.8)
[2021-03-17 23:28] LABS: NT Pro B Type Natriuretic Pept 29 pg/mL (5-100); Troponin I < 0.012 ng/mL (0.000-0.034)
[2021-03-17 23:29] LABS: Add Urine Microscopic? NO; Appearance Urine Clear (Clear); Bilirubin Urine Negative (Negative); Blood Urine Negative (Negative); Color Urine Straw (Yellow); Glucose Urine UA Negative (Negative); Ketones Urine Negative (Negative); Leukocyte Esterase Ur Negative LEU/UL (Negative); Nitrate Urine Negative (Negative); Protein Urine Negative (Negative); Urobilinogen Urine Negative mg/dL (<2.0)
[2021-03-18 00:09] VITALS: BP 109/55; PULSE 78; RESP 21; O2SAT 98
--- NOTE | 2021-03-18 00:15 | ED.GENADULT ---
HPI - General Adult General Chief complaint: Shortness of Breath/Dyspnea Stated complaint: chest swimming, dont feel good Time Seen by Provider: 03/17/21 22:10 History of Present Illness HPI narrative: Patient is a 55-year-old female presents the emergency department with chief complaint of increasing peripheral edema and shortness of breath. Patient reports that she has been on Lasix and has history of peripheral edema reports that she talk to her doctor and they increased her Lasix and told her to take it for a week. Patient states she still been feeling short of breath and decided to come to the emergency department for evaluation. The patient denies chest pain does report that she gets short of breath whenever she exerts herself but denies PND or orthopnea. Related Data Home Medications Medication Instructions Recorded Confirmed loratadine [Allergy Relief 10 mg PO DAILY 02/06/20 02/06/20 (loratadine)] omeprazole 20 mg PO DAILY 02/06/20 02/06/20 Allergies Allergy/AdvReac Type Severity Reaction Status Date / Time codeine AdvReac Severe EXTREME GI Verified 03/17/21 22:09 UPSET Review of Systems Review of Systems: Narrative: A 10 system review of systems was completed on the patient and is negative except for what is stated in the HPI. Nursing and ancillary documentation was reviewed. PMFSH Past Medical History Medical History Arthritis Chronic anemia Diabetes Hyperlipidemia Hyperlipidemia associated with type 2 diabetes mellitus Hypertension Hypertension associated with diabetes ANTONIA (obstructive sleep apnea) Sleep apnea Surgical History Surgical History H/O spinal fusion H/O: hysterectomy Family History Family History Grandparent Cerebrovascular accident Mother Cerebrovascular accident Family history of Alzheimer's disease Father Family history of Alzheimer's disease Malignant neoplasm of prostate Sibling Hypertension Family history of heart disease in male family member before age 55 Social History Social History Smoking status: Never smoker Alcohol intake: never Substance use: never Gender identity (if verbalized by the patient): Female Spiritual care concerns: No Exam Narrative: Exam Narrative: GENERAL: Well-appearing, well-nourished, and in no acute distress. HEAD: Normocephalic, atraumatic. EYES: PERRLA and EOMI. ENT: Nares clear, no rhinorrhea or epistaxis. Mucous membranes moist. NECK: Supple. CHEST: Clear to auscultation. No respiratory distress. HEART: Regular rate and rhythm. No murmur heard. Normal peripheral pulses. ABDOMEN: Soft, nontender, nondistended, normal active bowel sounds. EXTREMITIES: Normal range of motion. +1 edema. SKIN: Warm, dry, no rash. NEURO: No focal deficits. Alert and oriented x3. PSYCH: Normal mood and affect. Course Vital Signs Vital signs: Vital Signs Temperature 36.6 C 03/17/21 21:56 Pulse Rate 84 03/17/21 21:56 Respiratory Rate 19 03/17/21 21:56 Blood Pressure 133/70 03/17/21 21:56 Pulse Oximetry 98 03/17/21 21:56 Temperature 36.6 C 03/17/21 21:56 Pulse Rate 78 03/18/21 00:09 Respiratory Rate 21 H 03/18/21 00:09 Blood Pressure 109/55 L 03/18/21 00:09 Pulse Oximetry 98 03/18/21 00:09 Medical Decision Making Vital Signs Vital Signs: Vital Signs Temperature 36.6 C 03/17/21 21:56 Pulse Rate 84 03/17/21 21:56 Respiratory Rate 19 03/17/21 21:56 Blood Pressure 133/70 03/17/21 21:56 Pulse Oximetry 98 03/17/21 21:56 Temperature 36.6 C 03/17/21 21:56 Pulse Rate 78 03/18/21 00:09 Respiratory Rate 21 H 03/18/21 00:09 Blood Pressure 109/55 L 03/18/21 00:09 Pulse Oximetry 98 03/18/21 00:09 Lab Data
[2021-03-18 00:51] VITALS: BP 103/57; PULSE 87; RESP 19; O2SAT 96
== END 2021-03-18 00:55 | disposition home or self-care (01) ==
PROVIDERS: Emergency Provider Emergency Medicine
DX: R06.00 Dyspnea, unspecified (principal); R60.0 Localized edema; M19.90 Unspecified osteoarthritis, unspecified site; D64.9 Anemia, unspecified; E11.9 Type 2 diabetes mellitus without complications; E78.5 Hyperlipidemia, unspecified; I10 Essential (primary) hypertension; G47.30 Sleep apnea, unspecified
CPT/HCPCS: 36415; 71045; 80053; 81003; 83690; 83880; 84484; 85025; 85610; 85730; 93005; 96374; 99284; A9270; J1940

== ENCOUNTER 2021-04-06 14:36 | Emergency (ER) | payer BC, SELFPAY ==
[2021-04-06] VITALS (10 sets, daily range): BP systolic 109–127; BP diastolic 48–78; PULSE 73–77; RESP 16–21; TEMP 36.5–36.7; O2SAT 95–100
--- NOTE | ~2021-04-06 | XR_ITS ---
EXAMINATION: XR chest 2V DATE: 04/06/2021 15:07 INDICATION: Chest tightness. Shortness of breath. TECHNIQUE: Frontal and lateral views of the chest were obtained. COMPARISON: Chest single view 03/17/2021, CT abdomen and pelvis 03/05/2020 FINDINGS: The chest demonstrates clear lungs without pneumonia, pleural effusion, or pneumothorax. Th e heart size is normal. IMPRESSION: 1. No acute cardiopulmonary disease. Reviewed, dictated and finalized at location A.
--- NOTE | 2021-04-06 14:38 | ECG_ITS ---
Measurements Intervals [place] Rate: 78 P: 43 MD: 150 QRS: 44 QRSD: 101 T: 42 QT: 415 QTc: 473 Interpretive Statements SINUS RHYTHM NORMAL ECG Electronically Signed On 04-06-2021 14:51:52 CDT by Luis Felipe Orellana D.O.
[2021-04-06 15:06] LABS: Basophils Percent Auto 0.2 % (0.2-1.2); Eosinophils Percent Auto 0.4 % (0-4.4); Hematocrit 41.4 % (37.0-47.0); Hemoglobin 12.6 g/dL (12.0-15.0); Immature Granulocyte Absolute 0.01 K/mm3 (0.00-0.031); Immature Granulocyte Percent A 0.2 % (0-0.5); Lymphocytes Percent Auto 32.7 % (18.3-44.2); Mean Corpuscular HGB Conc 30.4 g/dl (32-36); Mean Corpuscular Hemoglobin 26.2 pg (26-34); Mean Corpuscular Volume 86.1 fl (80-100); Mean Platelet Volume 10.1 fl (7.4-10.4); Monocytes Absolute Auto 0.8 K/mm3 (0.1-0.6); Neutrophils Absolute Auto 2.5 K/mm3 (1.3-6.7); Neutrophils Percent Auto 50.5 % (45.5-73.1); Platelet Count Result 174 k/mm3 (150-375); Red Blood Count 4.81 M/mm3 (4.2-5.4); Red Cell Distribution Width 14.8 % (11.5-14.5); White Blood Count 4.9 K/mm3 (4.5-10.0)
[2021-04-06 15:14] LABS: INR 0.9; Prothrombin Time 12.3 Seconds (11.1-14.7)
[2021-04-06 15:15] LABS: Anion Gap 7 mmol/L (8-16); Blood Urea Nitrogen 16 mg/dL (7-17); Carbon Dioxide 30 mmol/L (22-30); Chloride 98 mmol/L (98-107); Estimated CRCL calculation 106 ml/min; Estimated Glomerular Filt Rate > 60; Glucose 165 mg/dL (65-110); Partial Thromboplastin Time 28.6 SECONDS (22.3-36.8); Potassium 3.6 mmol/L (3.4-5.0); Sodium 135 mmol/L (137-145)
[2021-04-06 15:27] LABS: Troponin I < 0.012 ng/mL (0.000-0.034)
--- NOTE | 2021-04-06 17:48 | ED.CHESTPAIN ---
HPI - Chest Pain General Chief Complaint: Chest Pain Stated Complaint: chest pain/body aches/weakness Time Seen by Provider: 04/06/21 17:23 History of Present Illness HPI narrative: Patient presents with chest pressure that is been going on for the past couple days and getting worse. She is also reporting generalized fatigue and malaise. Ports a history of the same and thought it could be related to her potassium as that has been the etiology in the past. Chest pain is described as a tightness she denies shortness of breath lightheadedness or dizziness she denies any other areas of pain such as abdominal pain. She denies recent fever, cough, congestion Related Data Home Medications Medication Instructions Recorded Confirmed loratadine [Allergy Relief 10 mg PO DAILY 02/06/20 02/06/20 (loratadine)] omeprazole 20 mg PO DAILY 02/06/20 02/06/20 Allergies Allergy/AdvReac Type Severity Reaction Status Date / Time codeine AdvReac Severe EXTREME GI Verified 04/06/21 17:56 UPSET Review of Systems Review of Systems: CONSTITUTIONAL: Denies fever, chills, or sweats. EYES: Denies visual changes, redness, or discharge. ENT: Denies rhinorrhea, congestion, sore throat, or otalgia. CARDIOVASCULAR: Denies cpalpitations, or edema. RESPIRATORY: Denies cough or dyspnea. GASTROINTESTINAL: Denies abdominal pain, nausea, vomiting, or diarrhea. GENITOURINARY: Denies dysuria or hematuria. SKIN: Denies rash or itching. MUSCULOSKELETAL: Denies back pain, joint pain, or myalgia. NEUROLOGIC: Denies headache, numbness, dizziness, or weakness. PSYCHIATRIC: Denies anxiety or depression. All systems reviewed & are unremarkable except as noted in HPI and below PMFSH Past Medical History Medical History Arthritis Chronic anemia Diabetes Hyperlipidemia Hyperlipidemia associated with type 2 diabetes mellitus Hypertension Hypertension associated with diabetes ANTONIA (obstructive sleep apnea) Sleep apnea Surgical History Surgical History H/O spinal fusion H/O: hysterectomy Family History Family History Grandparent Cerebrovascular accident Mother Cerebrovascular accident Family history of Alzheimer's disease Father Family history of Alzheimer's disease Malignant neoplasm of prostate Sibling Hypertension Family history of heart disease in male family member before age 55 Social History Social History Smoking status: Never smoker Alcohol intake: never Substance use: never Gender identity (if verbalized by the patient): Female Spiritual care concerns: No Exam Narrative: GENERAL: Well-appearing, well-nourished, and in no acute distress. HEAD: Normocephalic, atraumatic. EYES: PERRLA and EOMI. ENT: Nares clear, no rhinorrhea or epistaxis. Mucous membranes moist. NECK: Supple. No masses. No JVD CHEST: Clear to auscultation. No respiratory distress. No wheezes rales or rhonchi HEART: Regular rate and rhythm. No murmur heard. Normal peripheral pulses. ABDOMEN: Soft, nontender, nondistended, normal active bowel sounds. EXTREMITIES: Normal range of motion. No edema. SKIN: Warm, dry, no rash. NEURO: 5 out of 5 strength in all extremities sensation intact to light touch in all extremities cranial nerves II through XII are intact alert and oriented x3. PSYCH: Normal mood and affect. Course Reevaluation(s) Reevaluation #1: Patient is resting comfortably she denies any focal areas of pain denying any focal areas of weakness or numbness. She reports continued sensation of feeling off labs imaging and plan reviewed with patient she is comfortable managing her symptoms at home at this point. Date: 04/06/21 Time: 19:21 Vital Signs Vital signs: Vital Signs Temperature 36.5 C 04/06/21 14:44 Puls
[2021-04-06] MEDS: ONDANSETRON INJ 4 MG/2 ML VIAL IV PUSH (17:52)
[2021-04-06] MEDS: SODIUM CHLORIDE 0.9% IV 500 ML 999 ML IV CONT (17:52)
[2021-04-06 18:33] LABS: Troponin I < 0.012 ng/mL (0.000-0.034)
[2021-04-06 19:11] LABS: Add Urine Microscopic? YES; Appearance Urine Clear (Clear); Bacteria Urine Trace /hpf; Bilirubin Urine Negative (Negative); Blood Urine Negative (Negative); Color Urine Yellow (Yellow); Glucose Urine UA Negative (Negative); Ketones Urine Negative (Negative); Leukocyte Esterase Ur Negative LEU/UL (Negative); Mucus Urine Rare /lpf; Nitrate Urine Negative (Negative); Protein Urine Negative (Negative); RBC Urine 0-2 /hpf (0-2); Specific Grav Ur 1.025 (1.001-1.035); Squamous Epithelial Cell Urine Occasional /hpf (Few)
--- NOTE | 2021-04-06 19:16 | PC.NURSE ---
Assumed care of pt. at this time. Report from [facility]. FELICITY
== END 2021-04-06 19:35 | disposition home or self-care (01) ==
PROVIDERS: Emergency Medicine; Emergency Provider Emergency Medicine
DX: R07.9 Chest pain, unspecified (principal); R53.83 Other fatigue; I10 Essential (primary) hypertension; E78.5 Hyperlipidemia, unspecified; E11.9 Type 2 diabetes mellitus without complications
CPT/HCPCS: 36415; 71046; 80048; 81001; 84484; 85025; 85610; 85730; 93005; 96361; 96374; 99284; J2405; J7040

== ENCOUNTER 2021-05-18 00:31 | Emergency (ER) | payer BC, SELFPAY ==
--- NOTE | ~2021-05-18 | CT_ITS ---
EXAMINATION: CT brain wo con DATE: 05/18/2021 02:17 INDICATION: Right-sided numbness. TECHNIQUE: Computed tomography (CT) of the head was performed without intravenous contrast. The mA wa s adjusted according to patient size. Iterative reconstruction technique was employed. The dose-lengt h product was 605.33 mGy-cm. COMPARISON: Head CT 09/01/16 FINDINGS: There is no intracranial hemorrhage, acute infarction, or abnormal intracranial mass lesion . Again seen is an empty sella. The ventricles are normal in size. There is a trace left mastoid effu aston. Again seen is an old blowout fracture of medial wall of left orbit. There is mild mucosal thick ening in the paranasal sinuses. IMPRESSION: 1. No acute intracranial pathology. Reviewed, dictated and finalized at location A.
--- NOTE | ~2021-05-18 | XR_ITS ---
EXAMINATION: XR chest 1V portable DATE: 05/18/2021 01:29 INDICATION: Chest pain. TECHNIQUE: A single frontal view of the chest was obtained. COMPARISON: Chest 2 views 04/06/2021, CT abdomen and pelvis 03/05/2020 FINDINGS: Sensitivity is decreased by obesity. The chest demonstrates clear lungs without pneumonia, pleural effusion, or pneumothorax. The heart size is normal. IMPRESSION: 1. No acute cardiopulmonary disease. Reviewed, dictated and finalized at location A.
[2021-05-18 00:41] VITALS: BP 153/72; PULSE 93; RESP 18; TEMP 36.9; O2SAT 98
--- NOTE | 2021-05-18 00:46 | ECG_ITS ---
Measurements Intervals [place] Rate: 91 P: 59 SD: 167 QRS: 32 QRSD: 93 T: 37 QT: 384 QTc: 474 Interpretive Statements SINUS RHYTHM POSSIBLE LEFT ATRIAL ENLARGEMENT BORDERLINE ECG Electronically Signed On 05-18-2021 6:37:28 CDT by Luis Felipe Orellana D.O.
--- NOTE | 2021-05-18 01:06 | ED.NEUROSD ---
HPI - Neuro Symptoms/Deficit General Chief Complaint: Neuro Symptoms/Deficit Stated Complaint: R sided numbness Time Seen by Provider: 05/18/21 00:50 Source: patient Mode of arrival: ambulatory Limitations: no limitations History of Present Illness HPI Narrative: Patient is a 55-year-old female complaining of right facial numbness accompanied by right upper extremity discomfort that started approximately 9 PM tonight. Patient denies any speech or visual disturbance, focal weakness or unsteady gait. Patient denies any chest pain, shortness of breath, abdominal pain, nausea, vomiting, diaphoresis, fever or chills. Related Data Home Medications Medication Instructions Recorded Confirmed loratadine [Allergy Relief 10 mg PO DAILY 02/06/20 02/06/20 (loratadine)] omeprazole 20 mg PO DAILY 02/06/20 02/06/20 Allergies Allergy/AdvReac Type Severity Reaction Status Date / Time codeine AdvReac Severe EXTREME GI Verified 04/06/21 17:56 UPSET Review of Systems Review of Systems: All systems reviewed & are unremarkable except as noted in HPI and below Constitutional: Constitutional: Denies body ache(s), Denies chills, Denies excessive sweating, Denies fatigue, Denies fever(s), Denies headache(s), Denies lethargy, Denies malaise, Denies weakness and Denies weight loss Eyes: Eyes: Denies blurry vision, Denies change in vision and Denies loss of vision ENT: Denies dizziness, Denies ear discharge, Denies headache(s), Denies lip swelling, Denies epistaxis, Denies nasal congestion, Denies neck pain, Denies throat swelling and Denies tongue swelling Cardiovascular: Cardiovascular: Denies chest pain, Denies chest pain at rest, Denies chest pain with activity, Denies diaphoresis, Denies rapid heart rate, Denies edema, Denies irregular heart rhythm, Denies lightheadedness, Denies palpitations, Denies dyspnea and Denies dyspnea on exertion Respiratory: Respiratory: Denies chest congestion, Denies cough, Denies hemoptysis, Denies dyspnea and Denies dyspnea on exertion Gastrointestinal: Gastrointestinal: Denies abdominal pain, Denies melena, Denies hematochezia, Denies diarrhea, Denies nausea, Denies vomiting and Denies hematemesis Musculoskeletal: Musculoskeletal: Denies abnormal gait, Denies deformity, Denies joint swelling, Denies limited range of motion and Denies neck pain Neurologic: Denies Abnormal speech present, Denies abnormal gait, Denies confusion, Denies dizziness, Denies headache(s), Denies focal weakness, Denies loss of vision, Denies Other visual disturbances and Denies weakness Psychiatric: Psychiatric: Denies confusion, Denies depression, Denies auditory hallucinations, Denies homicidal ideation and Denies suicidal ideation Endocrine: Endocrine: Denies cold intolerance, Denies excessive sweating, Denies fatigue, Denies heat intolerance and Denies palpitations Hematologic/Lymphatic: Hematologic/Lymphatic: Denies easy bleeding and Denies easy bruising Allergic/Immunologic: Allergic/Immunologic: Denies lip swelling, Denies throat swelling and Denies tongue swelling PMFSH Past Medical History Medical History Arthritis Chronic anemia Diabetes Hyperlipidemia Hyperlipidemia associated with type 2 diabetes mellitus Hypertension Hypertension associated with diabetes ANTONIA (obstructive sleep apnea) Sleep apnea Surgical History Surgical History H/O spinal fusion H/O: hysterectomy Family History Family History Grandparent Cerebrovascular accident Mother Cerebrovascular accident Family history of Alzheimer's disease Father Family history of Alzheimer's disease Malignant neoplasm of prostate Sibling Hypertension Family history of heart disease in male family member before age 55 Social History Social History (Reviewed 05/18/21 @ 01:13 by Lev Davis
[2021-05-18 01:40] LABS: Basophils Percent Auto 0.4 % (0.2-1.2); Eosinophils Absolute Auto 0.1 K/mm3 (0-0.3); Eosinophils Percent Auto 1.4 % (0-4.4); Hematocrit 38.3 % (37.0-47.0); Hemoglobin 12.1 g/dL (12.0-15.0); Immature Granulocyte Absolute 0.03 K/mm3 (0.00-0.031); Immature Granulocyte Percent A 0.4 % (0-0.5); Lymphocytes Absolute Auto 2.11 K/mm3 (0.9-3.2); Lymphocytes Percent Auto 27.4 % (18.3-44.2); Mean Corpuscular HGB Conc 31.6 g/dl (32-36); Mean Corpuscular Hemoglobin 27.6 pg (26-34); Mean Corpuscular Volume 87.4 fl (80-100); Mean Platelet Volume 10.6 fl (7.4-10.4); Monocytes Absolute Auto 0.7 K/mm3 (0.1-0.6); Monocytes Percent Auto 8.8 % (2.6-8.5); Neutrophils Absolute Auto 4.7 K/mm3 (1.3-6.7); Neutrophils Percent Auto 61.6 % (45.5-73.1); Platelet Count Result 266 k/mm3 (150-375); Red Blood Count 4.38 M/mm3 (4.2-5.4); Red Cell Distribution Width 16.3 % (11.5-14.5); White Blood Count 7.7 K/mm3 (4.5-10.0)
[2021-05-18 01:45] VITALS: BP 125/69; PULSE 87; RESP 14; O2SAT 97
[2021-05-18 01:51] LABS: Alanine Aminotransferase 24 U/L (4-35); Albumin Level 3.8 g/dL (3.5-5.1); Alkaline Phosphatase 87 U/L (38-126); Anion Gap 8 mmol/L (8-16); Aspartate Amino Transferase 30 U/L (14-36); Bilirubin,Total 0.8 mg/dL (0.2-1.3); Blood Urea Nitrogen 10 mg/dL (7-17); Calcium 9.2 mg/dL (8.4-10.2); Carbon Dioxide 24 mmol/L (22-30); Chloride 105 mmol/L (98-107); Estimated Glomerular Filt Rate > 60; Glucose 168 mg/dL (65-110); Potassium 3.9 mmol/L (3.4-5.0); Sodium 137 mmol/L (137-145)
[2021-05-18 01:54] LABS: Prothrombin Time 12.7 Seconds (11.1-14.7)
[2021-05-18 01:55] LABS: Partial Thromboplastin Time 29.5 SECONDS (22.3-36.8)
[2021-05-18 02:03] LABS: Troponin I < 0.012 ng/mL (0.000-0.034)
[2021-05-18 02:45] VITALS: BP 120/68; PULSE 83; RESP 20; O2SAT 94
[2021-05-18 03:44] VITALS: BP 133/72; PULSE 83; RESP 21; O2SAT 95
== END 2021-05-18 03:44 | disposition home or self-care (01) ==
PROVIDERS: Emergency Provider Emergency Medicine
DX: R20.2 Paresthesia of skin (principal); M19.90 Unspecified osteoarthritis, unspecified site; E78.5 Hyperlipidemia, unspecified; I10 Essential (primary) hypertension; E11.9 Type 2 diabetes mellitus without complications; G47.30 Sleep apnea, unspecified
CPT/HCPCS: 36415; 70450; 71045; 80053; 84484; 85025; 85610; 85730; 93005; 99284

== ENCOUNTER 2021-06-17 16:21 | Outpatient (CLI) | payer BC, SELFPAY ==
--- NOTE | ~2021-06-17 | MM_ITS ---
EXAMINATION: MM screening daniel BI w mehdi HISTORY: Screening mammogram TECHNIQUE: Craniocaudal and mediolateral oblique 3-D tomosynthesis images were obtained and synthetic 2-D images were generated. CAD analysis was submitted and interpreted. COMPARISON: 05/26/2020, 04/16/2019 bilateral digital screening mammogram examinations BREAST PARENCHYMAL COMPOSITION: There are scattered areas of fibroglandular density. FINDINGS: . There are scattered bilateral benign calcifications. There is no evidence of suspicious m ass, calcification, or architectural distortion to suggest malignancy in either breast. There has bee n no suspicious interval change. IMPRESSION: 1. No mammographic evidence of malignancy. 2. Recommend routine screening mammography in one year. BI-RADS Category 2: Benign finding(s) Reviewed, dictated and finalized at location A.
== END 2021-06-17 16:22 | disposition home or self-care (01) ==
LOC: ANHIMG 16:26
DX: Z12.31 Encounter for screening mammogram for malignant neoplasm of breast (principal)
CPT/HCPCS: 77063; 77067

== ENCOUNTER 2021-06-18 11:23 | Emergency (ER) | payer BC, SELFPAY ==
--- NOTE | ~2021-06-18 | CT_ITS ---
EXAMINATION: CT abdomen pelvis w con DATE: 06/18/2021 12:38 INDICATION: Upper abdominal pain. TECHNIQUE: Computed tomography (CT) of the abdomen and pelvis was performed with 100 mL Omnipaque 350 intravenous contrast. Automated exposure control and iterative reconstruction technique were employe d. The dose-length product was 1572.18 mGy-cm. COMPARISON: CT abdomen and pelvis 03/15/2020 FINDINGS: The visualized portions of the lung bases demonstrate mosaic attenuation, likely small airw ays disease. There is mild scarring in paraspinal right lower lobe. There is a 5 mm nodule in right m iddle lobe, likely benign. No pleural effusion. The heart size is normal. No pericardial effusion. Th ere is diffuse hepatic steatosis. The gallbladder, spleen, pancreas, adrenal glands, and kidneys are normal. There are no dilated loops of bowel. The appendix is normal. There are no pathologically enla rged lymph nodes. There is no free intraperitoneal fluid. There is severe lower lumbar spondylosis. T here is moderate thoracic spondylosis. IMPRESSION: 1. Diffuse hepatic steatosis. Reviewed, dictated and finalized at location A.
[2021-06-18 11:29] VITALS: BP 152/87; PULSE 82; RESP 22; TEMP 36.6; O2SAT 95
--- NOTE | 2021-06-18 11:53 | ED.ABDPAIN ---
HPI - Abdominal Pain General Chief Complaint: Abdominal Pain Stated Complaint: abd pain Time Seen by Provider: 06/18/21 11:36 Source: patient and RN notes reviewed Mode of arrival: ambulatory Limitations: no limitations History of Present Illness HPI narrative: This is a 56 year old morbidly obese female with history of HTN, DM who presents for evaluation of upper abdominal pain. This pain has been present for 1 week. She reports her pain was constant the initial 3 days. It has been intermittent for the past 4 days, and it seems worse in the morning. She has not taken anything for pain. She denies associated urinary issues, nausea, vomiting or fever. She reports history of constipation but over the past few days she has watery stool without blood. Her pain does not seem to be worse with eating. Related Data Home Medications Medication Instructions Recorded Confirmed loratadine [Allergy Relief 10 mg PO DAILY 02/06/20 02/06/20 (loratadine)] omeprazole 20 mg PO DAILY 02/06/20 02/06/20 olmesartan 06/18/21 olmesartan 06/18/21 potassium chloride meq PO 06/18/21 Allergies Allergy/AdvReac Type Severity Reaction Status Date / Time codeine AdvReac Severe EXTREME GI Verified 06/18/21 11:46 UPSET lisinopril AdvReac Cough Verified 06/18/21 11:48 Review of Systems Review of Systems: All systems reviewed & are unremarkable except as noted in HPI and below Constitutional: Constitutional: Denies chills and Denies fever(s) Gastrointestinal: Gastrointestinal: Reports abdominal pain, Reports diarrhea, Denies nausea and Denies vomiting Genitourinary: Genitourinary: Denies hematuria and Denies dysuria PMF Past Medical History Medical History Arthritis Chronic anemia Diabetes Hyperlipidemia Hyperlipidemia associated with type 2 diabetes mellitus Hypertension Hypertension associated with diabetes ANTONIA (obstructive sleep apnea) Sleep apnea Surgical History Surgical History H/O spinal fusion H/O: hysterectomy Family History Family History Grandparent Cerebrovascular accident Mother Cerebrovascular accident Family history of Alzheimer's disease Father Family history of Alzheimer's disease Malignant neoplasm of prostate Sibling Hypertension Family history of heart disease in male family member before age 55 Social History Social History Smoking status: Never smoker Alcohol intake: never Substance use: never Gender identity (if verbalized by the patient): Female Spiritual care concerns: No Exam Const: General: no acute distress and alert Nutritional Appearance: obese Orientation/consciousness: patient oriented x3 Eyes: EOM: EOMs intact bilaterally Chest: Chest palpation & inspection: normal inspection of the chest Resp: Effort & Inspection: normal respiratory effort and no retractions Auscultation: clear to auscultation bilaterally Cardio: Rate: regular rate Rhythm: regular rhythm Heart sounds: no murmurs GI: GI Palp: Yes Soft to palpation, Yes Tenderness to palpation present (GI) (RUQ, RLQ, epigastric) and No Guarding due to palpation present (GI) Auscultation: normal bowel sounds Skin: General skin exam: normal color Rashes: no rashes Neuro: General: patient oriented x3, moves all extremities and CN's II-XI intact bilaterally Extrem: General: normal to inspection Psych: Mental Status: mental status grossly normal Affect: normal affect Course Reevaluation(s) Reevaluation #1: PAtient states her pain has resolved. I Discussed labs and CT. She will be discharge on low fat diet and follow up with PCP. She denies any questions or concerns. Date: 06/18/21 Time: 14:14 Vital Signs Vital signs: Vital Signs Temperature 98 F
[2021-06-18] MEDS: ONDANSETRON INJ 4 MG/2 ML VIAL IV PUSH (12:04)
[2021-06-18 12:09] LABS: Basophils Percent Auto 0.1 % (0.2-1.2); Eosinophils Absolute Auto 0.1 K/mm3 (0-0.3); Eosinophils Percent Auto 1.6 % (0-4.4); Hematocrit 37.9 % (37.0-47.0); Hemoglobin 12.2 g/dL (12.0-15.0); Immature Granulocyte Absolute 0.02 K/mm3 (0.00-0.031); Immature Granulocyte Percent A 0.3 % (0-0.5); Lymphocytes Absolute Auto 1.95 K/mm3 (0.9-3.2); Lymphocytes Percent Auto 24.4 % (18.3-44.2); Mean Corpuscular HGB Conc 32.2 g/dl (32-36); Mean Corpuscular Volume 87.1 fl (80-100); Mean Platelet Volume 10.4 fl (7.4-10.4); Monocytes Absolute Auto 0.8 K/mm3 (0.1-0.6); Monocytes Percent Auto 9.9 % (2.6-8.5); Neutrophils Absolute Auto 5.1 K/mm3 (1.3-6.7); Neutrophils Percent Auto 63.7 % (45.5-73.1); Platelet Count Result 213 k/mm3 (150-375); Red Blood Count 4.35 M/mm3 (4.2-5.4); Red Cell Distribution Width 14.8 % (11.5-14.5)
[2021-06-18 12:21] LABS: Alanine Aminotransferase 21 U/L (4-35); Alkaline Phosphatase 90 U/L (38-126); Anion Gap 6 mmol/L (8-16); Aspartate Amino Transferase 28 U/L (14-36); Bilirubin,Total 1.2 mg/dL (0.2-1.3); Blood Urea Nitrogen 11 mg/dL (7-17); Calcium 9.3 mg/dL (8.4-10.2); Carbon Dioxide 29 mmol/L (22-30); Chloride 105 mmol/L (98-107); Estimated CRCL calculation 158 ml/min; Estimated Glomerular Filt Rate > 60; Glucose 108 mg/dL (65-110); Lipase 104 U/L (23-300); Potassium 4.1 mmol/L (3.4-5.0); Sodium 140 mmol/L (137-145)
[2021-06-18 12:22] LABS: Add Urine Microscopic? YES; Appearance Urine Cloudy (Clear); Bacteria Urine Trace /hpf; Bilirubin Urine Negative (Negative); Blood Urine Negative (Negative); Color Urine Yellow (Yellow); Glucose Urine UA Negative (Negative); Ketones Urine Negative (Negative); Leukocyte Esterase Ur Negative LEU/UL (Negative); Mucus Urine Rare /lpf; Nitrate Urine Negative (Negative); Protein Urine 1+ mg/dL (Negative); Specific Grav Ur 1.019 (1.001-1.035); Squamous Epithelial Cell Urine Occasional /hpf (Few); Urobilinogen Urine Negative mg/dL (<2.0); WBC Urine 0-3 /hpf
== END 2021-06-18 14:44 | disposition home or self-care (01) ==
PROVIDERS: Emergency Provider General Practice
DX: R10.10 Upper abdominal pain, unspecified (principal); I10 Essential (primary) hypertension; E78.5 Hyperlipidemia, unspecified; E11.9 Type 2 diabetes mellitus without complications; E66.01 Morbid (severe) obesity due to excess calories; Z68.43 Body mass index [BMI] 50.0-59.9, adult; D64.9 Anemia, unspecified; G47.33 Obstructive sleep apnea (adult) (pediatric); Z98.1 Arthrodesis status; K76.0 Fatty (change of) liver, not elsewhere classified
CPT/HCPCS: 36415; 74177; 80053; 81001; 81025; 83690; 85025; 96365; 96375; 99284; J0131; J2405; Q9967

== ENCOUNTER 2021-10-12 17:27 | Outpatient (CLI) | payer BC, SELFPAY ==
--- NOTE | ~2021-10-12 | XR_ITS ---
EXAMINATION: XR chest 2V DATE: 10/12/2021 18:02 INDICATION: Right-sided chest pain TECHNIQUE: PA and lateral views of the chest were obtained. COMPARISON: Chest radiograph dated 05/18/2021 FINDINGS: The lungs remain clear with no focal airspace opacities, pulmonary edema, pleural effusion or pneumot horax. The cardiomediastinal silhouette is normal. Moderate thoracic spondylosis. IMPRESSION: 1. No acute cardiopulmonary disease. Reviewed, dictated and finalized at location A. [employer]
== END 2021-10-12 17:28 | disposition home or self-care (01) ==
DX: R07.9 Chest pain, unspecified (principal); Z86.16 Personal history of COVID-19
CPT/HCPCS: 71046

== ENCOUNTER 2022-05-05 05:49 | Emergency (ER) | payer BC, SELFPAY ==
[2022-05-05] VITALS (21 sets, daily range): BP systolic 125–162; BP diastolic 54–75; PULSE 61–84; RESP 12–20; TEMP 36.6; O2SAT 95–100
--- NOTE | ~2022-05-05 | XR_ITS ---
EXAMINATION: XR chest 2V DATE: 05/05/2022 06:42 INDICATION: Left chest pain. TECHNIQUE: Frontal and lateral views of the chest were obtained. COMPARISON: Chest 2 views 10/12/2021, CT abdomen and pelvis 06/18/2021 FINDINGS: The chest demonstrates clear lungs without pneumonia, pleural effusion, or pneumothorax. Th e heart size is normal. IMPRESSION: 1. No acute cardiopulmonary disease. Reviewed, dictated and finalized at location A.
--- NOTE | ~2022-05-05 | CT_ITS ---
EXAMINATION: CTA chest PE protocol DATE: 05/05/2022 09:45 INDICATION: Left-sided chest pain, weakness TECHNIQUE: Computed tomography angiography (CTA) of the chest was performed with 100 mL Omnipaque-350 intravenous contrast timed to evaluate the pulmonary arteries. Coronal maximum intensity projection 3D-reconstructions were created by the technologist. The dose-length product (DLP) was 1044.53 mGy-cm . Automated exposure control and iterative reconstruction technique were employed. COMPARISON: 04/26/2019, 03/19/2017 FINDINGS: The pulmonary arteries are moderately well-opacified. No pulmonary embolism is identified. There is a 5 mm nodule of the right middle lobe with minimal change since 2017, likely old granulomat ous disease. The lungs are free of acute opacities. No pleural effusion or pneumothorax. No pathologi lisa enlarged thoracic lymph nodes are identified. The heart size is normal. There is moderate thora cic spondylosis. IMPRESSION: 1. No pulmonary embolism or acute cardiopulmonary abnormality. Reviewed, dictated and finalized at location B.
--- NOTE | 2022-05-05 06:14 | ECG_ITS ---
Measurements Intervals [place] Rate: 78 P: 62 WI: 164 QRS: 31 QRSD: 100 T: 48 QT: 391 QTc: 447 Interpretive Statements SINUS RHYTHM POSSIBLE LEFT ATRIAL ENLARGEMENT BASELINE ARTIFACT- I, II, AVR, AVL BORDERLINE ECG COMPARED TO ECG 05/18/2021 00:48:50 NO SIGNIFICANT CHANGES Electronically Signed On 05-05-2022 8:10:04 CDT by Luis Felipe Orellana D.O.
--- NOTE | 2022-05-05 06:24 | ED.CHESTPAIN ---
HPI - Chest Pain General Chief Complaint: Weakness <Angel Contreras MD - Last Filed: 05/05/22 06:56> Stated Complaint: Weakness <Angel Contreras MD - Last Filed: 05/05/22 06:56> Time Seen by Provider: 05/05/22 05:55 <Angel Contreras MD - Last Filed: 05/05/22 06:56> History of Present Illness HPI narrative: This is a 56-year-old female with past medical history of hyperlipidemia, hypertension and diabetes, who presents to the emergency department complaining of left-sided chest pain and neck pain. She states she woke from sleep and noticed the pain and approximately 3:00 this morning. The pain is described as sharp and bandlike, 8 out of 10, over the skin of the left chest wall, radiating to the neck and the left arm. The pain is aggravated by movement of the left arm and direct pressure. She denies associated nausea or shortness of breath. She also complains of generalized weakness. <Angel Contreras MD - Last Filed: 05/05/22 06:56> Related Data Home Medications: Home Medications Medication Instructions Recorded Confirmed loratadine 10 mg tablet (Allergy 10 mg PO DAILY 02/06/20 02/06/20 Relief (loratadine)) omeprazole 20 mg capsule,delayed 20 mg PO DAILY 02/06/20 02/06/20 release olmesartan 5 mg tablet 06/18/21 potassium chloride 20 mEq meq PO 06/18/21 tablet,extended release(part/cryst) furosemide 20 mg tablet (Lasix) 40 mg PO DAILY 05/05/22 <Angel Contreras MD - Last Filed: 05/05/22 06:56> Allergies/Adverse Reactions: Allergies Allergy/AdvReac Type Severity Reaction Status Date / Time codeine AdvReac Severe EXTREME GI Verified 06/18/21 11:46 UPSET lisinopril AdvReac Cough Verified 06/18/21 11:48 <Angel Contreras MD - Last Filed: 05/05/22 06:56> Review of Systems Review of Systems: CONSTITUTIONAL: Denies fever, chills, or sweats. EYES: Denies visual changes, redness, or discharge. ENT: Denies rhinorrhea, congestion, sore throat, or otalgia. CARDIOVASCULAR: chest pain, Denies palpitations, or edema. RESPIRATORY: Denies cough or dyspnea. GASTROINTESTINAL: Denies abdominal pain, nausea, vomiting, or diarrhea. GENITOURINARY: Denies dysuria or hematuria. SKIN: Denies rash or itching. MUSCULOSKELETAL: Denies back pain, joint pain, or myalgia. NEUROLOGIC: Denies headache, numbness, dizziness, or weakness. PSYCHIATRIC: Denies anxiety or depression. <Angel Contreras MD - Last Filed: 05/05/22 06:56> PMFSH Past Medical History Medical History: Medical History Arthritis Chronic anemia Diabetes Hyperlipidemia Hyperlipidemia associated with type 2 diabetes mellitus Hypertension Hypertension associated with diabetes ANTONIA (obstructive sleep apnea) Sleep apnea <Angel Contreras MD - Last Filed: 05/05/22 06:56> Surgical History Surgical History: Surgical History H/O spinal fusion H/O: hysterectomy <Angel Contreras MD - Last Filed: 05/05/22 06:56> Family History Family History: Family History Grandparent Cerebrovascular accident Mother Cerebrovascular accident Family history of Alzheimer's disease Father Family history of Alzheimer's disease Malignant neoplasm of prostate Sibling Hypertension Family history of heart disease in male family member before age 55 <Angel Contreras MD - Last Filed: 05/05/22 06:56> Social History Social History: Social History Smoking status: Never smoker Alcohol intake: never Substance use: never Gender identity (if verbalized by the patient): Female Spiritual care concerns: No <Angel Contreras MD - Last Filed: 05/05/22 06:56> Exam Narrative: GENERAL: Well-developed, well-nourished, and in no acute distress. HEAD: Normocephal
[2022-05-05 06:33] LABS: Basophils Percent Auto 0.2 % (0.2-1.2); Eosinophils Absolute Auto 0.2 K/mm3 (0-0.3); Eosinophils Percent Auto 2.2 % (0-4.4); Hematocrit 40.2 % (37.0-47.0); Hemoglobin 12.3 g/dL (12.0-15.0); Immature Granulocyte Absolute 0.02 K/mm3 (0.00-0.031); Immature Granulocyte Percent A 0.2 % (0-0.5); Lymphocytes Absolute Auto 1.93 K/mm3 (0.9-3.2); Lymphocytes Percent Auto 20.3 % (18.3-44.2); Mean Corpuscular HGB Conc 30.6 g/dl (32-36); Mean Corpuscular Hemoglobin 26.5 pg (26-34); Mean Corpuscular Volume 86.6 fl (80-100); Mean Platelet Volume 11.1 fl (7.4-10.4); Monocytes Absolute Auto 0.7 K/mm3 (0.1-0.6); Neutrophils Absolute Auto 6.7 K/mm3 (1.3-6.7); Neutrophils Percent Auto 70.1 % (45.5-73.1); Platelet Count Result 215 k/mm3 (150-375); Red Blood Count 4.64 M/mm3 (4.2-5.4); Red Cell Distribution Width 15.1 % (11.5-14.5); White Blood Count 9.5 K/mm3 (4.5-10.0)
[2022-05-05] MEDS: ACETAMINOPHEN 500 MG TABLET 1000 MG PO (06:38)
[2022-05-05] MEDS: ASPIRIN 81 MG CHEWABLE TABLET 324 MG PO (06:38)
[2022-05-05 06:43] LABS: Alanine Aminotransferase 22 U/L (6-35); Albumin Level 3.9 g/dL (3.5-5.1); Alkaline Phosphatase 113 U/L (38-126); Anion Gap 7 mmol/L (8-16); Aspartate Amino Transferase 23 U/L (14-36); Bilirubin,Total 0.7 mg/dL (0.2-1.3); Blood Urea Nitrogen 16 mg/dL (7-17); Calcium 9.2 mg/dL (8.4-10.2); Carbon Dioxide 29 mmol/L (22-30); Chloride 101 mmol/L (98-107); Estimated Glomerular Filt Rate > 60; Glucose 153 mg/dL (65-110); Potassium 4.5 mmol/L (3.4-5.0); Sodium 137 mmol/L (137-145)
[2022-05-05 06:55] LABS: Troponin I < 0.012 ng/mL (0.000-0.034)
[2022-05-05 09:07] LABS: D Dimer 0.78 ug/mL (<0.48)
[2022-05-05 09:53] LABS: Troponin I < 0.012 ng/mL (0.000-0.034)
== END 2022-05-05 11:20 | disposition home or self-care (01) ==
PROVIDERS: Emergency Medicine; Emergency Provider Preventive Medicine Aerospace Medicine
DX: R07.9 Chest pain, unspecified (principal); E11.9 Type 2 diabetes mellitus without complications; I15.2 Hypertension secondary to endocrine disorders; E78.49 Other hyperlipidemia; R94.31 Abnormal electrocardiogram [ECG] [EKG]; D64.9 Anemia, unspecified; G47.33 Obstructive sleep apnea (adult) (pediatric); Z98.1 Arthrodesis status; Z90.710 Acquired absence of both cervix and uterus
CPT/HCPCS: 36415; 71046; 71275; 80053; 84484; 85025; 85380; 93005; 99284; A9270; Q9967

== ENCOUNTER 2022-10-20 17:28 | Outpatient (CLI) | payer BC, SELFPAY ==
--- NOTE | ~2022-10-20 | MM_ITS ---
EXAMINATION: MM screening daniel BI w mehdi HISTORY: Screening mammogram TECHNIQUE: Craniocaudal and mediolateral oblique 3-D tomosynthesis images were obtained and synthetic 2-D images were generated. CAD analysis was submitted and interpreted. COMPARISON: 06/17/2021, 05/26/2020, 04/16/2019 bilateral screening mammogram examinations BREAST PARENCHYMAL COMPOSITION: There are scattered areas of fibroglandular density. FINDINGS: Scattered bilateral benign calcifications. There is no evidence of suspicious mass, calcifi cation, or architectural distortion to suggest malignancy in either breast. There has been no suspici ous interval change. IMPRESSION: 1. No mammographic evidence of malignancy. 2. Recommend routine screening mammography in one year. BI-RADS Category 2: Benign finding(s). Reviewed, dictated and finalized at location A. NUMBERER
== END 2022-10-20 17:29 | disposition home or self-care (01) ==
DX: Z12.31 Encounter for screening mammogram for malignant neoplasm of breast (principal)
CPT/HCPCS: 77063; 77067

== ENCOUNTER 2023-03-06 16:56 | Observation (INO) | payer BC, SELFPAY ==
[2023-03-06] VITALS (18 sets, daily range): BP systolic 115–154; BP diastolic 63–88; PULSE 79–100; RESP 15–26; TEMP 37.9–38.8; O2SAT 90–100
--- NOTE | ~2023-03-06 | CT_ITS ---
EXAMINATION: CT soft tissue neck w con DATE: 03/06/2023 19:31 INDICATION: Throat swelling. TECHNIQUE: Computed tomography (CT) of the neck was performed with 75 mL Omnipaque-350 intravenous co ntrast. Automated exposure control and iterative reconstruction technique were employed. The dose-elgin gth product was 681.36 mGy-cm. COMPARISON: None FINDINGS: Calcified left hilar lymph nodes are consistent with old granulomatous disease. There is en largement of the adenoids and palatine tonsils. There is mucosal thickening in the pharynx and larynx including the epiglottis and aryepiglottic folds. No abscess. 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 There is an old blowou t fracture of medial wall of left orbit. The mastoid air cells are normal. There is mild cervical spo ndylosis. IMPRESSION: 1. Soft tissue swelling involving the pharynx and larynx. No abscess. Reviewed, dictated and finalized at location E.
[2023-03-06 17:44] LABS: Strep Group A RT-PCR DETECTED (Negative)
--- NOTE | 2023-03-06 18:47 | ED.GENADULT ---
HPI - General Adult General Chief complaint: Unspecified <Angel Contreras MD - Last Filed: 03/06/23 18:58> Stated complaint: st <Angel Contreras MD - Last Filed: 03/06/23 18:58> Time Seen by Provider: 03/06/23 17:59 <Angel Contreras MD - Last Filed: 03/06/23 18:58> History of Present Illness HPI narrative: This is a 57-year-old female with past history of hypertension, who presents emergency department complaining of sore throat, pain with swallowing and difficulty swallowing saliva for the past 2 days. She denies any known sick contacts. She denies difficulty breathing or vomiting. She states her pain is 7/10 and dull, associated with headache and right ear pain. <Angel Contreras MD - Last Filed: 03/06/23 18:58> Related Data Home medications: Home Medications Medication Instructions Recorded Confirmed loratadine 10 mg tablet (Allergy 10 mg PO DAILY 02/06/20 02/06/20 Relief (loratadine)) omeprazole 20 mg capsule,delayed 20 mg PO DAILY 02/06/20 02/06/20 release olmesartan 5 mg tablet 06/18/21 potassium chloride 20 mEq meq PO 06/18/21 tablet,extended release(part/cryst) furosemide 20 mg tablet (Lasix) 40 mg PO DAILY 05/05/22 atorvastatin 20 mg tablet 20 mg PO 02/27/23 02/27/23 metolazone 2.5 mg tablet 2.5 mg PO 02/27/23 02/27/23 spironolactone 25 mg tablet 25 mg PO 02/27/23 02/27/23 <Angel Contreras MD - Last Filed: 03/06/23 18:58> Allergies/adverse reactions: Allergies Allergy/AdvReac Type Severity Reaction Status Date / Time codeine AdvReac Severe EXTREME GI Verified 03/06/23 18:10 UPSET lisinopril AdvReac Cough Verified 03/06/23 18:10 <Angel Contreras MD - Last Filed: 03/06/23 18:58> Review of Systems Review of Systems: CONSTITUTIONAL: Denies fever, chills, or sweats. ENT: Sore throat, right ear pain denies rhinorrhea, congestion CARDIOVASCULAR: Denies chest pain, palpitations, or edema. RESPIRATORY: Denies cough or dyspnea. GASTROINTESTINAL: Denies abdominal pain, nausea, vomiting, or diarrhea. GENITOURINARY: Denies dysuria or hematuria. SKIN: Denies rash or itching. MUSCULOSKELETAL: Denies back pain, joint pain, or myalgia. NEUROLOGIC: Denies headache, numbness, dizziness, or weakness. PSYCHIATRIC: Denies anxiety or depression. <Angel Contreras MD - Last Filed: 03/06/23 18:58> PMFSH Past Medical History Medical History: Medical History Arthritis Chronic anemia Diabetes Hyperlipidemia Hyperlipidemia associated with type 2 diabetes mellitus Hypertension Hypertension associated with diabetes ANTONIA (obstructive sleep apnea) Sleep apnea <Angel Contreras MD - Last Filed: 03/06/23 18:58> Surgical History Surgical History: Surgical History H/O spinal fusion H/O: hysterectomy <Angel Contreras MD - Last Filed: 03/06/23 18:58> Family History Family History: Family History Grandparent Cerebrovascular accident Mother Cerebrovascular accident Family history of Alzheimer's disease Father Family history of Alzheimer's disease Malignant neoplasm of prostate Sibling Hypertension Family history of heart disease in male family member before age 55 <Angel Contreras MD - Last Filed: 03/06/23 18:58> Social History Social History: Social History Smoking status: Never smoker Alcohol intake: never Substance use: never Living arrangements: with family Occupation/Education: occupation Gender identity (if verbalized by the patient): Female Spiritual care concerns: No <Angel Contreras MD - Last Filed: 03/06/23 18:58> Exam Narrative: GENERAL: Well-developed, well-nourished, appears uncomfortable HEAD: Normocephalic, atraumatic. EYES: PERRLA and
[2023-03-06] MEDS: ONDANSETRON INJ 4 MG/2 ML VIAL IV PUSH (19:05)
[2023-03-06] MEDS: SODIUM CHLORIDE 0.9% IV 1,000 ML 999 ML IV CONT (19:05)
[2023-03-06] MEDS: MORPHINE SULFATE (*CRX) 4 MG/ML INJ IV PUSH (19:05)
[2023-03-06] MEDS: AMPICILLIN SULB 3 GM/NS 100 ML 3 GM/100 ML VIAL IVPB (19:06)
[2023-03-06 19:16] LABS: Basophils Percent Auto 0.2 % (0.2-1.2); Hematocrit 40.5 % (37.0-47.0); Hemoglobin 12.7 g/dL (12.0-15.0); Immature Granulocyte Absolute 0.07 K/mm3 (0.00-0.031); Immature Granulocyte Percent A 0.4 % (0-0.5); Lymphocytes Absolute Auto 1.35 K/mm3 (0.9-3.2); Lymphocytes Percent Auto 8.5 % (18.3-44.2); Mean Corpuscular HGB Conc 31.4 g/dl (32-36); Mean Corpuscular Hemoglobin 26.6 pg (26-34); Mean Corpuscular Volume 84.9 fl (80-100); Monocytes Absolute Auto 1.2 K/mm3 (0.1-0.6); Monocytes Percent Auto 7.5 % (2.6-8.5); Neutrophils Absolute Auto 13.2 K/mm3 (1.3-6.7); Neutrophils Percent Auto 83.4 % (45.5-73.1); Platelet Count Result 189 k/mm3 (150-375); Red Blood Count 4.77 M/mm3 (4.2-5.4); Red Cell Distribution Width 14.6 % (11.5-14.5); White Blood Count 15.8 K/mm3 (4.5-10.0)
[2023-03-06 19:24] LABS: Estimated CRCL calculation 119 ml/min; Estimated Glomerular Filt Rate > 60
[2023-03-06 19:28] LABS: Alanine Aminotransferase 24 U/L (6-35); Alkaline Phosphatase 112 U/L (38-126); Anion Gap 4 mmol/L (8-16); Aspartate Amino Transferase 27 U/L (14-36); Bilirubin,Total 1.8 mg/dL (0.2-1.3); Blood Urea Nitrogen 11 mg/dL (7-17); Calcium 8.8 mg/dL (8.4-10.2); Carbon Dioxide 32 mmol/L (22-30); Chloride 99 mmol/L (98-107); Estimated CRCL calculation 105 ml/min; Estimated Glomerular Filt Rate > 60; Glucose 151 mg/dL (65-110); Potassium 3.4 mmol/L (3.4-5.0); Sodium 135 mmol/L (137-145)
--- NOTE | 2023-03-06 20:01 | PC.NURSE ---
Pt refused Tylenol Suppository, pt made aware of benefits of Tylenol due to her Fever, pt still declined. Provider made aware, no further orders.
--- NOTE | 2023-03-06 20:13 | PC.NURSE ---
Pt placed on 2L o2 at this time. Pt reports she has history of sleep apnea. PT resting and O2 stats were 87-90, pt shes having difficulty breathing through her nose due to congestion.
[2023-03-06] MEDS: ACETAMINOPHEN 500 MG TABLET 1000 MG PO (20:48)
--- NOTE | 2023-03-06 22:20 | PM.IMHP ---
H&P: HPI History of Present Illness Date/Time: 03/06/23 22:20 Chief Complaint: Odynophagia. Narrative: This is a 57-year-old female with past medical history significant for morbid obesity, hypertension, dyslipidemia. Patient presents to the emergency room due to sore throat for 2 days, odynophagia, unable to eat, chills. Patient denies any nausea, vomiting, abdominal pain. Preliminary workup was significant for CT of soft tissue of neck with significant swelling of the pharynx and larynx no abscess. Patient admitted for further evaluation management and treatment. EXAMINATION: CT soft tissue neck w con DATE: 03/06/2023 19:31 INDICATION: Throat swelling. TECHNIQUE: Computed tomography (CT) of the neck was performed with 75 mL Omnipaque-350 intravenous contrast. Automated exposure control and iterative reconstruction technique were employed. The dose-length product was 681.36 mGy-cm. COMPARISON: None FINDINGS: Calcified left hilar lymph nodes are consistent with old granulomatous disease. There is enlargement of the adenoids and palatine tonsils. There is mucosal thickening in the pharynx and larynx including the epiglottis and aryepiglottic folds. No abscess. There is plaque in the proximal internal carotids with 0% stenosis relative to normal distal artery lumen diameters. There is an old blowout fracture of medial wall of left orbit. The mastoid air cells are normal. There is mild cervical spondylosis. IMPRESSION: 1. Soft tissue swelling involving the pharynx and larynx. No abscess. Review of Systems Review of Systems: Throat pain Constitutional: Constitutional: Reports chills, Denies fatigue, Reports fever(s), Reports malaise, Denies night sweats and Denies weakness Eyes: Eyes: Denies change in vision ENT: Denies dysphagia, Denies vertigo, Denies dizziness and Reports odynophagia Cardiovascular: Cardiovascular: Denies chest pain, Denies radiating jaw, neck or arm pain and Denies palpitations Respiratory: Respiratory: Denies cough, Denies excessive phlegm production, Denies dyspnea and Denies wheezing Gastrointestinal: Gastrointestinal: Denies abdominal pain, Denies dyspepsia, Denies heartburn, Denies diarrhea, Denies nausea and Denies vomiting Genitourinary: Genitourinary: Denies dysuria and Denies flank pain Musculoskeletal: Musculoskeletal: Denies muscle weakness Integumentary/Breasts: Skin/Breast: Denies rash Neurologic: Denies vertigo, Denies dizziness, Denies focal weakness and Denies Sensory deficit (Neuro) Psychiatric: Psychiatric: Reports no additional psychiatric complaints and Reports as per HPI Endocrine: Endocrine: Denies cold intolerance, Denies fatigue, Denies flushing, Denies heat intolerance, Denies polyphagia, Denies polydipsia and Denies palpitations Hematologic/Lymphatic: Hematologic/Lymphatic: Reports no additional hematologic/lymphatic complaints and Reports as per HPI Allergic/Immunologic: Allergic/Immunologic: Reports no additional allergic/immunologic complaints and Reports as per HPI PMFSH Past Medical History Medical History Arthritis Chronic anemia Diabetes Hyperlipidemia Hyperlipidemia associated with type 2 diabetes mellitus Hypertension Hypertension associated with diabetes ANTONIA (obstructive sleep apnea) Sleep apnea Surgical History Surgical History H/O spinal fusion H/O: hysterectomy Family History Family History Grandparent Cerebrovascular accident Mother Cerebrovascular accident Family history of Alzheimer's disease Father Family history of Alzheimer's disease Malignant neoplasm of prostate Sibling Hypertension Family history of heart disease in male family member before age 55 Social History Social History Smoking st
[2023-03-07] VITALS (8 sets, daily range): BP systolic 113–140; BP diastolic 63–73; PULSE 74–80; RESP 14–22; TEMP 35.9–36.8; O2SAT 92–99; BMI 63.4
[2023-03-07] MEDS: MORPHINE SULFATE (*CRX) 4 MG/ML INJ IV PUSH (00:48)
--- NOTE | 2023-03-07 01:00 | ADMGEN ---
This patient, Carin Haque, was admitted to Medical Room 261-01. Patient/family oriented to hospital policies and general routines including ID bracelet, bed and alarms, visiting hours, pain management, procedures, bathroom and other care routines, personal items, smoking policy, room service/diet, and visiting hours. Information on how to activate the Rapid Response Team has been discussed. Patient/Family are encouraged to report perceived risks to care and to ask questions if they do not understand what they are told or what they should do.
[2023-03-07] MEDS: SODIUM CHLORIDE 0.9% IV 1,000 ML 125 ML IV CONT ×2 (01:09→17:00)
[2023-03-07] MEDS: AMPICILLIN SULB 3 GM/NS 100 ML 3 GM/100 ML VIAL IVPB ×5 (01:19→23:54)
[2023-03-07 05:42] LABS: Basophils Percent Auto 0.2 % (0.2-1.2); Hematocrit 40.3 % (37.0-47.0); Hemoglobin 12.4 g/dL (12.0-15.0); Immature Granulocyte Absolute 0.17 K/mm3 (0.00-0.031); Immature Granulocyte Percent A 0.9 % (0-0.5); Lymphocytes Absolute Auto 0.82 K/mm3 (0.9-3.2); Lymphocytes Percent Auto 4.4 % (18.3-44.2); Mean Corpuscular HGB Conc 30.8 g/dl (32-36); Mean Corpuscular Hemoglobin 26.5 pg (26-34); Mean Corpuscular Volume 86.1 fl (80-100); Mean Platelet Volume 11.6 fl (7.4-10.4); Monocytes Absolute Auto 0.5 K/mm3 (0.1-0.6); Monocytes Percent Auto 2.6 % (2.6-8.5); Neutrophils Absolute Auto 17.3 K/mm3 (1.3-6.7); Neutrophils Percent Auto 91.9 % (45.5-73.1); Platelet Count Result 176 k/mm3 (150-375); Red Blood Count 4.68 M/mm3 (4.2-5.4); Red Cell Distribution Width 14.9 % (11.5-14.5); White Blood Count 18.8 K/mm3 (4.5-10.0)
[2023-03-07 06:04] LABS: Anion Gap 2 mmol/L (8-16); Blood Urea Nitrogen 12 mg/dL (7-17); Calcium 8.5 mg/dL (8.4-10.2); Carbon Dioxide 29 mmol/L (22-30); Chloride 103 mmol/L (98-107); Estimated CRCL calculation 140 ml/min; Estimated Glomerular Filt Rate > 60; Glucose 244 mg/dL (65-110); Potassium 3.6 mmol/L (3.4-5.0); Sodium 134 mmol/L (137-145)
[2023-03-07] MEDS: DEXAMETHASONE SOD PHOS INJ 4 MG/ML VIAL 8 MG IV PUSH ×3 (06:50→21:36)
[2023-03-07] MEDS: POTASSIUM CHLORIDE 20 MEQ ER TABLET PO (10:46)
[2023-03-07] MEDS: PANTOPRAZOLE 40 MG TABLET PO (10:46)
[2023-03-07] MEDS: metOLazone 2.5 MG TABLET PO (10:46)
[2023-03-07] MEDS: FUROSEMIDE 40 MG TABLET PO (10:46)
[2023-03-07] MEDS: ATORVASTATIN 20 MG TABLET PO (10:46)
[2023-03-07] MEDS: LORATADINE 10 MG TABLET PO (10:46)
[2023-03-07] MEDS: OLMESARTAN MEDOXOMIL 5 MG TABLET PO (10:47)
[2023-03-07] MEDS: ACETAMINOPHEN 325 MG TABLET 650 MG PO (11:00)
--- NOTE | 2023-03-07 11:12 | PM.IMPN ---
Progress Note: A&P Assessment and Plan (1) Acute streptococcal pharyngitis: Code(s): J02.0 - Streptococcal pharyngitis Status: Acute Assessment and Plan: Diagnosis based on presentation as no strep swab was ordered -CT of neck because initial concerns for peritonsillar abscess. No acute findings, just shows soft tissue swelling of pharynx and larynx. ENT was initially consulted but has signed off. -Treating with Unasyn and dexamethasone -IV fluids at 125 ml per hour. -Will encourage resumption of oral food, hope to advance diet and discharge tomorrow on Augmentin and Medrol dosepack. (2) ANTONIA (obstructive sleep apnea): Code(s): G47.33 - Obstructive sleep apnea (adult) (pediatric) Status: Acute Assessment and Plan: Patient encouraged to use CPAP to decrease throat irritation while sleeping. (3) Lower extremity edema: Code(s): R60.0 - Localized edema Status: Acute Assessment and Plan: -On metolazone 2.5 mg PO daily at home, restarted. Also receiving spironolactone 25 MG PO daily, as well as lasix 40 mg PO daily. (4) DM type 2 (diabetes mellitus, type 2): Code(s): E11.9 - Type 2 diabetes mellitus without complications Status: Acute Assessment and Plan: Will add bedside glucose checks and moderate dose insulin correction while in the hospital due to high dose IV steroid use. Patient not on any medication for DM at this time. Will obtain A1C with morning labs. -Nursing staff notified me that patient is declining insulin correction dosing, states the elevated sugars are going to be temporary with the steroids. I met with patient separate from initial exam and discussed that we prefer to keep sugar controlled and will insist on insulin treatment if glucose goes above 500. Patient agreed with this. Orders remain in place, patient has been educated and is free to refuse proper treatment if she wishes. Plan Advance diet as tolerated and discharge home with Augmentin and steroids tomorrow if tolerating better. Time Spent With Patient Time with patient: 25 - 35 minutes Subjective Date/time seen: 03/07/23 11:12 Interval history: This is a 57-year-old female patient admitted to the hospital for strep pharyngitis with difficulty breathing and difficulty swallowing. Originally there was concern for peritonsillar abscess on CT scan shows no abscess and ENT he signed off as there is no surgical intervention necessary. Patient has a history of diabetes but not currently on any medication for such. She is on several diuretics due to peripheral edema. Patient is currently on IV antibiotics and IV steroids as well as IV fluids for rehydration. Patient denies any chest pain or shortness of breath currently but states she did have some difficulty breathing previously. She has a history of obstructive sleep apnea does not always use her CPAP machine as she often falls asleep while watching TV before placing the mask on. patient reports that she is already feeling better was able to tolerate fluids orally this morning. We will continue IV medications until patient is taking a regular diet again. I told her that she would probably need insulin correction while in the hospital due to high-dose steroids Review of Systems Review of Systems: All systems reviewed & are unremarkable except as noted in HPI and below Exam Narrative: GENERAL: Generally well appearing, alert and oriented, in no apparent distress. She is pleasant and conversant in full sentences With mild muffling of her voice HEENT: Pupils are equally round and briskly reactive to light. Extraocular muscles are intact. Oral mucous membranes are moist without lesions. Pharyngeal erythema and swelling noted with baseline large tongue causing narrow pharynx. NECK: The patient has no noted JVD. Mild bilateral anterior cervical lymphadenopathy noted. CHEST/LUNGS: Lungs are clear bilaterally without rhonchi, rales, or wheezes. Ther
[2023-03-07] MEDS: BENZOCAINE/MENTHOL (*BKC) 18 EA LOZENGE 1 LOZENGE PO ×3 (11:44→18:16)
[2023-03-07 17:39] LABS: Glucose Point of Care 271 mg/dl (65-105)
[2023-03-07 21:46] LABS: Glucose Point of Care 272 mg/dl (65-105)
[2023-03-08 00:13] VITALS: PULSE 76; O2SAT 99
[2023-03-08] MEDS: SODIUM CHLORIDE 0.9% IV 1,000 ML 125 ML IV CONT ×2 (01:44→10:28)
[2023-03-08] MEDS: ACETAMINOPHEN 325 MG TABLET 650 MG PO ×2 (01:52→10:27)
[2023-03-08 03:30] VITALS: BP 117/60; PULSE 66; RESP 20; TEMP 36; O2SAT 94
[2023-03-08 05:23] LABS: Basophils Percent Auto 0.1 % (0.2-1.2); Hematocrit 38.9 % (37.0-47.0); Hemoglobin 12.1 g/dL (12.0-15.0); Immature Granulocyte Absolute 0.16 K/mm3 (0.00-0.031); Immature Granulocyte Percent A 0.9 % (0-0.5); Lymphocytes Absolute Auto 1.12 K/mm3 (0.9-3.2); Mean Corpuscular HGB Conc 31.1 g/dl (32-36); Mean Corpuscular Hemoglobin 26.3 pg (26-34); Mean Corpuscular Volume 84.6 fl (80-100); Monocytes Absolute Auto 0.5 K/mm3 (0.1-0.6); Monocytes Percent Auto 2.6 % (2.6-8.5); Neutrophils Absolute Auto 16.9 K/mm3 (1.3-6.7); Neutrophils Percent Auto 90.4 % (45.5-73.1); Platelet Count Result 185 k/mm3 (150-375); Red Cell Distribution Width 14.7 % (11.5-14.5); White Blood Count 18.7 K/mm3 (4.5-10.0)
[2023-03-08 05:32] LABS: Hemoglobin A1C 8.5 % (<5.7)
[2023-03-08 05:35] LABS: Alanine Aminotransferase 28 U/L (6-35); Albumin Level 3.6 g/dL (3.5-5.1); Alkaline Phosphatase 96 U/L (38-126); Anion Gap 4 mmol/L (8-16); Aspartate Amino Transferase 27 U/L (14-36); Bilirubin,Total 0.7 mg/dL (0.2-1.3); Blood Urea Nitrogen 13 mg/dL (7-17); Calcium 8.6 mg/dL (8.4-10.2); Carbon Dioxide 31 mmol/L (22-30); Chloride 102 mmol/L (98-107); Estimated CRCL calculation 140 ml/min; Estimated Glomerular Filt Rate > 60; Glucose 271 mg/dL (65-110); Potassium 3.8 mmol/L (3.4-5.0); Sodium 137 mmol/L (137-145)
[2023-03-08] MEDS: AMPICILLIN SULB 3 GM/NS 100 ML 3 GM/100 ML VIAL IVPB ×2 (06:04→14:58)
[2023-03-08] MEDS: DEXAMETHASONE SOD PHOS INJ 4 MG/ML VIAL 8 MG IV PUSH (06:04)
--- NOTE | 2023-03-08 08:10 | PM.IMPN ---
Progress Note: A&P Assessment and Plan (1) Acute streptococcal pharyngitis: Code(s): J02.0 - Streptococcal pharyngitis Status: Acute Assessment and Plan: Diagnosis based on presentation as no strep swab was ordered -CT of neck because initial concerns for peritonsillar abscess. No acute findings, just shows soft tissue swelling of pharynx and larynx. ENT was initially consulted but has signed off. -Treating with Unasyn and dexamethasone -IV fluids at 125 ml per hour. -Will assess how she is tolerating PO intake today. May be able to discharge home. (2) ANTONIA (obstructive sleep apnea): Code(s): G47.33 - Obstructive sleep apnea (adult) (pediatric) Status: Acute (3) Lower extremity edema: Code(s): R60.0 - Localized edema Status: Acute Assessment and Plan: -On metolazone 2.5 mg PO daily at home, restarted. Also receiving spironolactone 25 MG PO daily, as well as lasix 40 mg PO daily. Subjective Date/time seen: 03/08/23 08:10 Objective Data Vital Signs Vital Signs: Vital Signs - 24 hr 03/07/23 10:50 03/07/23 14:00 03/07/23 10:45 Temperature 96.7 F L Pulse Rate 80 76 Respiratory Rate 14 22 H Blood Pressure 119/70 129/69 Pulse Oximetry 92 94 Oxygen Delivery Room Air Fraction of Inspired Oxygen 03/07/23 19:29 03/08/23 00:13 03/08/23 03:30 Temperature 98.1 F 96.8 F L Pulse Rate 76 76 66 Respiratory Rate 20 20 Blood Pressure 140/63 117/60 Pulse Oximetry 99 99 94 Oxygen Delivery Room Air Fraction of Inspired Oxygen 21 Intake/Output Intake/Output: Intake & Output 03/05/23 03/06/23 03/07/23 03/08/23 23:59 23:59 23:59 23:59 Intake Total 1100 2980 1590 Output Total 2950 1200 Balance 1100 30 390 Meds/Results Medications: Active Medications Generic Name Dose Route Start Last Admin Trade Name Freq PRN Reason Stop Dose Admin Acetaminophen 650 mg 03/06/23 22:25 03/08/23 01:52 Acetaminophen 325 Mg Tablet PO 650 mg Q4H PRN Administration Mild Pain (1-3) or Fever Atorvastatin Calcium 20 mg 03/07/23 09:00 03/07/23 10:46 Atorvastatin 20 Mg Tablet PO 20 mg DAILY PEEWEE Administration Benzocaine 1 lozenge 03/07/23 11:17 03/07/23 18:16 Benzocaine/Menthol (*Bkc) 18 Ea Lozenge PO 1 lozenge PRN PRN Administration Sore Throat Dexamethasone Sodium Phosphate 8 mg 03/07/23 06:00 03/08/23 06:04 Dexamethasone Sod Phos Inj 4 Mg/Ml Vial IV PUSH 8 mg Q8HR PEEWEE Administration Dextrose 12.5 gm 03/07/23 16:55 Dextrose 50% 25 Gm/50 Ml Syringe IV PUSH PRN PRN Hypoglycemia Protocol Furosemide 40 mg 03/07/23 09:00 03/07/23 10:46 Furosemide 40 Mg Tablet PO 40 mg DAILY PEEWEE Administration Glucagon 1 mg 03/07/23 16:55 Glucagon For Inj 1 Mg Vial IM PRN PRN Hypoglycemia Protocol Glucose 15 gm 03/07/23 16:55 Glucose Oral Gel 15 Gm Of Glucse In 37.5 Gm Tube PO PRN PRN Hypoglycemia Protocol Sodium Chloride 1,000 mls @ 125 mls/hr 03/06/23 22:25 03/08/23 01:44 Normal Saline Iv IV CONT 125 mls/hr .Q8H PEEWEE Administration Ampicillin Sodium/Sulbactam Sodium 3 gm in 100 mls @ 200 mls/hr 03/07/23 12:00 03/08/23 06:04 Unasyn 3 Gm/Ns 100 Ml IVPB 200 mls/hr Q6H PEEWEE Administration Dextrose 1,000 mls @ 100 mls/hr 03/07/23 16:55 Dextrose 5% 1,000 Ml IVPB PRN PRN Hypoglycemia Protocol Insulin Aspart 3 - 6 units 03/07/23 17:00 03/07/23 18:10 Insulin Aspart (*Bkc) 100 Units/Ml SUB-Q Not Given TIDWM PEEWEE Protocol Insulin Aspart 1 - 3 units 03/07/23 21:00 03/07/23 21:36 Insulin Aspart (*Bkc) 100 Units/Ml SUB-Q Not Given HS PEEWEE Protocol Loratadine 10 mg 03/07/23 09:00 03/07/23 10:46 Loratadine 10 Mg Tablet PO 10 mg DAILY PEEWEE Administration Metolazone 2.5 mg 03/07/23 09:00 03/07/23 10:46 Metolazone 2.5 Mg Tablet PO 2.5 mg DAILY PEEWEE Administration [place]
[2023-03-08 08:54] LABS: Glucose Point of Care 267 mg/dl (65-105)
[2023-03-08 09:25] VITALS: BP 146/77; PULSE 75; O2SAT 92
[2023-03-08] MEDS: POTASSIUM CHLORIDE 20 MEQ ER TABLET PO (09:26)
[2023-03-08] MEDS: SPIRONOLACTONE 25 MG TABLET PO (09:27)
[2023-03-08] MEDS: metOLazone 2.5 MG TABLET PO (09:27)
[2023-03-08] MEDS: LORATADINE 10 MG TABLET PO (09:27)
[2023-03-08] MEDS: PANTOPRAZOLE 40 MG TABLET PO (09:27)
[2023-03-08] MEDS: OLMESARTAN MEDOXOMIL 5 MG TABLET PO (09:27)
[2023-03-08] MEDS: ATORVASTATIN 20 MG TABLET PO (09:28)
[2023-03-08] MEDS: FUROSEMIDE 40 MG TABLET PO (09:28)
[2023-03-08 12:20] LABS: Glucose Point of Care 279 mg/dl (65-105)
--- NOTE | 2023-03-08 15:02 | PM.DS ---
DS: Admitting Diagnosis Discharge Date March 08 Admitting Diagnosis pharyngitis DS: Discharge Diagnosis Discharge Diagnosis Plan Assessment and Plan (1) Acute streptococcal pharyngitis: ?Code(s): J02.0 - Streptococcal pharyngitis ?Status:?Acute ?Assessment and Plan: Diagnosis based on presentation as no strep swab was ordered -CT of neck because initial concerns for peritonsillar abscess. No acute findings, just shows soft tissue swelling of pharynx and larynx. ENT was initially consulted but has signed off. -Treating with Unasyn and dexamethasone -IV fluids at 125 ml per hour. -Will encourage resumption of oral food, hope to advance diet and discharge tomorrow on Augmentin and Medrol dosepack. (2) ANTONIA (obstructive sleep apnea): ?Code(s): G47.33 - Obstructive sleep apnea (adult) (pediatric) ?Status:?Acute ?Assessment and Plan: Patient encouraged to use CPAP to decrease throat irritation while sleeping. (3) Lower extremity edema: ?Code(s): R60.0 - Localized edema ?Status:?Acute ?Assessment and Plan: -On metolazone 2.5 mg PO daily at home, restarted. Also receiving spironolactone 25 MG PO daily, as well as lasix 40 mg PO daily. (4) DM type 2 (diabetes mellitus, type 2): ?Code(s): E11.9 - Type 2 diabetes mellitus without complications ?Status:?Acute ?Assessment and Plan: Will add bedside glucose checks and moderate dose insulin correction while in the hospital due to high dose IV steroid use. Patient not on any medication for DM at this time. Will obtain A1C with morning labs. -Nursing staff notified me that patient is declining insulin correction dosing, states the elevated sugars are going to be temporary with the steroids. I met with patient separate from initial exam and discussed that we prefer to keep sugar controlled and will insist on insulin treatment if glucose goes above 500. Patient agreed with this. Orders remain in place, patient has been educated and is free to refuse proper treatment if she wishes. DS: Summary Hospital Course Reason for hospitalization: strep pharyngitis Hospital Course: You were admitted on 03/06 with complaints of a sore throat, inability to intake oral fluids, and chills. You were found to have strep pharyngitis. We treated with IV antibiotics, IV steroids, and IV hydration. Your symptoms have improved and urine now tolerating oral liquids. We will discharge home the antibiotics for a total course of 10 days. You will also receive 3 more days of p.o. steroids. Please follow-up with your PCP in 1 week and keep her follow-up with your ENT 12/02/2017. Status at Discharge Cognitive/behavioral status at discharge: Independent Time Spent with Patient Time attestation: Total time spent providing and/or coordinating discharge services:50 Exam Narrative: General: well-nourished, well-appearing 57-year-old female, sitting up in bed, comfortable, NARD Neuro: awake, alert and oriented x4, speech clear, no focal neuro deficits noted HEENMT: normocephalic, atraumatic, EOMI, sclerae anicteric, moist oral mucosa, grade 2-3 tonsillar edema with erythema and purulent plaques present. Respiratory: Clear to auscultation bilaterally without crackles, rhonchi or wheezes, nonlabored breathing Cardio: regular rate, regular rhythm with S1-S2 Abdomen: nondistended, normoactive bowel sounds, soft, nontender to palpation Extremities: no edema, erythema, or tenderness to palpation, DP pulses 2+ bilaterally Skin: no rashes or lesions, warm and dry Psych: appropriate mood and affect, judgment and insight intact DS: Data Data Completed and Pending Labs on day of discharge: Labs from last 24 hours 03/08/23 03/08/23 03/08/23 12:16 08:52 05:05 WBC 18.7 H RBC 4.60 Hgb 12.1 Hct 38.9 MCV 84.6 MCH 26.3 MCHC 31.1 L RDW 14.7 H Plt Count 185 MPV 11.0 H Immature Gran % (Auto) 0.9 H Neut % (Auto) 90.4 H L
== END 2023-03-08 16:35 | disposition home or self-care (01) ==
LOC: ANHED 22:31 → ANH2MED 03-07 01:19
PROVIDERS: Emergency Medicine; Nurse Practitioner; Preventive Medicine Aerospace Medicine; Admitting Provider Internal Medicine; Emergency Provider Emergency Medicine; Visit Provider Nurse Practitioner Acute Care
DX: J02.0 Streptococcal pharyngitis (principal); G47.33 Obstructive sleep apnea (adult) (pediatric); R60.0 Localized edema; E11.9 Type 2 diabetes mellitus without complications; R51.9 Headache, unspecified; H92.01 Otalgia, right ear; D64.9 Anemia, unspecified; E78.5 Hyperlipidemia, unspecified; I10 Essential (primary) hypertension; E66.01 Morbid (severe) obesity due to excess calories; Z68.44 Body mass index [BMI] 60.0-69.9, adult; Z79.899 Other long term (current) drug therapy
CPT/HCPCS: 36415; 70491; 80048; 80053; 82948; 83036; 85025; 87651; 96361; 96365; 96366; 96375; 96376; 99285; A9270; G0378; J0295; J1100; J2270; J2405; J7030; Q9967

== ENCOUNTER 2023-03-14 16:32 | Outpatient (CLI) | payer BC, SELFPAY ==
[2023-03-14 17:25] LABS: Anion Gap 4 mmol/L (8-16); Blood Urea Nitrogen 13 mg/dL (7-17); Calcium 9.5 mg/dL (8.4-10.2); Carbon Dioxide 36 mmol/L (22-30); Chloride 98 mmol/L (98-107); Estimated Glomerular Filt Rate > 60; Glucose 153 mg/dL (65-110); Potassium 4.6 mmol/L (3.4-5.0); Sodium 138 mmol/L (137-145)
== END 2023-03-14 16:33 | disposition home or self-care (01) ==
PROVIDERS: PCP Internal Medicine Cardiovascular Disease; Visit Provider Internal Medicine Cardiovascular Disease
DX: R60.0 Localized edema (principal); G89.29 Other chronic pain
CPT/HCPCS: 36415; 80048

== ENCOUNTER 2023-03-17 08:18 | Outpatient (CLI) | payer BC, SELFPAY ==
--- NOTE | 2023-04-11 21:31 | WPDSLEEPSTUD ---
Sleep Study Date of Study: 03/17/23 Ordering Provider: Arleth Sanz MD Interpreting Physician: Deja Colunga DO Sleep Study Type: Split Polysomnogram Height: 1.65 m Weight: 165.108 kg Body Mass Index: 60.5 Neck Circumference (inches): 19 [place]: 23 Reason for Sleep Study History of ANTONIA dating back to 2005 and stopped using CPAP 2 years ago Sleep History Patient is a 57-year-old female with history of hypertension, dyslipidemia, obstructive sleep apnea, and diabetes who presents to the sleep lab for a split study for re-evaluation of sleep apnea after being off CPAP for 2 years. She occasionally awakens from sleep short of breath. She rarely awakens at night with heartburn, belching or cough.? She constantly snores and snores loudly enough that others complain. She rarely has trouble sleeping when she has a cold. She occasionally suddenly wakes up gasping for breath during the night. She occasionally has breathing problems at night. She rarely sweats excessively at night. She occasionally notices her heart pounding or beating irregularly during the night. She constantly falls asleep during the day. She constantly falls asleep involuntarily and frequently falls asleep while driving. She never experiences loss of muscle tone with strong emotion. She constantly has trouble at work because of sleepiness. She never feels paralyzed on waking or falling asleep. She does not feel afraid of going to sleep. She rarely has nightmares. She rarely recalls her dreams. She frequently has thoughts racing through her mind. She never feels sad or depressed. She rarely feels anxiety or worry about things. She rarely notices parts of her body jerk. She never kicks during the night. She never feels crawling or aching feelings in her legs. She occasionally feels leg pain at night. She never grinds her teeth during sleep or has morning jaw pain. She frequently feels bothered by pain during the day and is occasionally awakened by pain during the night. She frequently wakes up feeling stiff, sore, and achy in the morning and constantly wakes up with pain in her neck, spine, or joints. Normal bedtime is around 8pm to 9pm on the weekdays and around 10pm on the weekends. She feels like she takes a long time to fall asleep because her mind is racing. She typically gets about 6 to 8 hours of sleep per night. Her wake up time is 5am on the weekdays and 8amto 9am on the weekends. She typically wakes up around 1 to 2 times per night. She watches TV before falling asleep and takes naps in the afternoon or evening. Habits:? Never tobacco smoker. Drinks about 2 to 3 caffeinated beverages per week. No alcohol or recreational substances. [facility] Past Medical History Medical History Allergies Arthritis Chronic anemia Chronic GERD Diabetes GERD (gastroesophageal reflux disease) Hyperlipidemia Hyperlipidemia associated with type 2 diabetes mellitus Hypertension Hypertension associated with diabetes ANTONIA (obstructive sleep apnea) Sleep apnea Surgical History Surgical History H/O spinal fusion H/O: hysterectomy Family History Family History Grandparent Cerebrovascular accident Mother Heart disease Family history of Alzheimer's disease Hypertension Cerebrovascular accident Father Malignant neoplasm of prostate Family history of Alzheimer's disease Hypertension Sibling Family history of heart disease in male family member before age 55 Hypertension Asthma Heart disease Daughter Hypertension Asthma Other Breast cancer Social History Social History Social History: The patient is and has 3 children. 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 Patient is lifelong nonsmoker. Code status full c
[2023-04-11 21:35] VITALS: BMI 60.5
== END 2023-03-18 06:48 | disposition home or self-care (01) ==
LOC: ANHCSM 08:19
PROVIDERS: PCP Internal Medicine Cardiovascular Disease; Visit Provider Internal Medicine Critical Care Medicine
DX: G47.33 Obstructive sleep apnea (adult) (pediatric) (principal); K21.9 Gastro-esophageal reflux disease without esophagitis; E11.9 Type 2 diabetes mellitus without complications; I10 Essential (primary) hypertension
CPT/HCPCS: 95811

== ENCOUNTER 2023-03-27 15:06 | Outpatient (CLI) | payer BC, SELFPAY ==
--- NOTE | 2023-03-28 12:52 | WPDSIXMINUTE ---
Six Minute Walk Procedure Procedure Performed Pulmonary Stress Test (6 min walk) Six Minute Walk Six Minute Walk: This is a 6 minute walk test. The test was performed and interpreted in accordance with the 2014 ERS/ATS task force guidelines. Findings: The patient's resting room air oxygen saturation measured by pulse oximetry was 94% and heart rate was 85 bpm. Patient ambulated for 122 meters and oxygen saturation remained 89 to 96%. Heart rate at the end of the study was 98 bpm. The patient did not qualify for supplemental oxygen at rest or with ambulation. There are no prior studies for comparison.
--- NOTE | 2023-03-28 12:54 | WPDPFTINT ---
PFT Procedure Performed PFT Procedure Performed Spirometry with Pre/Post Bronchodilator Plethysmography (Lung Vol) Diffusing Cap (DLCO) Flow Vol Loop PFT Interpretation This is a pulmonary function test with pre and post-bronchodilator spirometry, plethysmography and diffusing capacity. The test was performed and results interpreted in accordance with the 2019 and 2005 ATS/ERS Task Force guidelines respectively using the Global Lung Function Initiative-2012 reference equations. Patient demonstrated good effort and cooperation. Reproducibility criteria were met. The quality of the pre bronchodilator spirometry maneuver was Grade A and post bronchodilator spirometry maneuver was Grade A. Findings: Spirometry: The contour the inspiratory and expiratory flow tracing are normal. The pre bronchodilator FVC is 2.38 L, 84% predicted. The pre bronchodilator FEV1 is 2.00 L, 89% predicted. The pre bronchodilator FEV1: FVC ratio is 84%. The post bronchodilator FVC is 2.52 L, representing a 6% increase. The post bronchodilator FEV1 is 2.05 L, representing a 2% increase. The post bronchodilator FEV1: FVC ratio is 81%. Plethysmography: The total lung capacity is 4.58 L, 100% predicted. The functional residual capacity is 2.15 L, 76% predicted. The residual volume is 2.00 L, 107% predicted. Diffusing capacity: The diffusing capacity unadjusted for hemoglobin and carboxyhemoglobin is 24.7, 112% predicted. The diffusing capacity adjusted for alveolar volume is 5.60, 127% predicted. Impression: The spirometry is normal without evidence of an obstructive abnormality. There is no significant improvement after inhaling a single dose of albuterol. The lung volumes are normal. The diffusing capacity is normal. There are no prior studies for comparison
== END 2023-03-27 15:07 | disposition home or self-care (01) ==
LOC: ANHPFT 15:06
PROVIDERS: PCP Internal Medicine Cardiovascular Disease; Visit Provider Internal Medicine Critical Care Medicine
DX: R06.09 Other forms of dyspnea (principal); U09.9 Post COVID-19 condition, unspecified
CPT/HCPCS: 94060; 94618; 94726; 94729

== ENCOUNTER 2023-03-30 12:07 | Inpatient (IN) | payer BC, SELFPAY ==
[2023-03-30] VITALS (27 sets, daily range): BP systolic 106–167; BP diastolic 65–96; PULSE 84–100; RESP 11–31; TEMP 36.1–36.4; O2SAT 92–100; BMI 60.1
--- NOTE | ~2023-03-30 | XR_ITS ---
EXAMINATION: XR chest 2V DATE: 03/30/2023 13:23 INDICATION: Shortness of breath and productive cough TECHNIQUE: PA and lateral views of the chest were obtained. COMPARISON: Chest radiograph dated 05/05/2022 FINDINGS: Mild bronchial wall thickening in the right infrahilar region without evident airspace opacities. No pleural effusion or pneumothorax. The cardiomediastinal silhouette is normal. Mild thoracic dextrocur vature with mild spondylosis. IMPRESSION: 1. Mild bronchial wall thickening in the right perihilar region without focal airspace opacities whic h could be seen with bronchitis or reactive airway disease/asthma. Reviewed, dictated and finalized at location A. IMPRESSION: 1. Mild bronchial wall thickening in the right perihilar region without focal a irspace opacities which could be seen with bronchitis or reactive airway diseas e/asthma.
--- NOTE | ~2023-03-30 | CT_ITS ---
EXAMINATION: CT diagnostic chest w con DATE: 03/30/2023 16:53 INDICATION: Cough and shortness of breath TECHNIQUE: Transaxial computed tomographic images of the chest were obtained after the administration of 75 cc of Omnipaque 350 intravenous contrast. The dose-length product (DLP) was 925.85 mGy-cm. Ite rative reconstruction was used. COMPARISON: 05/05/2022 FINDINGS: There are patchy groundglass opacities throughout the right lung. There are also areas of m inimal bronchial wall thickening in the right lung. There is a stable 5 mm nodule of the right middle lobe. No pleural effusion or pneumothorax. No pathologically enlarged thoracic lymph nodes are ident ified. The heart size is normal. The liver is diffusely low in attenuation when compared with the spl een, consistent with hepatic steatosis. There is moderate thoracic spondylosis. IMPRESSION: 1. Mild multifocal pneumonia of the right lung. Reviewed, dictated and finalized at location F.
--- NOTE | 2023-03-30 12:21 | ECG_ITS ---
Measurements Intervals [place] Rate: 90 P: 53 HI: 156 QRS: 28 QRSD: 92 T: 36 QT: 368 QTc: 451 Interpretive Statements SINUS RHYTHM POSSIBLE LEFT ATRIAL ENLARGEMENT [-0.1mV P WAVE IN V1/V2] BORDERLINE ECG COMPARED TO ECG 05/05/2022 06:02:34 NO SIGNIFICANT CHANGES Electronically Signed On 03-31-2023 12:47:06 CDT by Chan Park M.D.
[2023-03-30 12:47] LABS: Basophils Percent Auto 0.4 % (0.2-1.2); Eosinophils Absolute Auto 0.4 K/mm3 (0-0.3); Eosinophils Percent Auto 4.5 % (0-4.4); Hematocrit 42.9 % (37.0-47.0); Hemoglobin 13.6 g/dL (12.0-15.0); Immature Granulocyte Absolute 0.04 K/mm3 (0.00-0.031); Immature Granulocyte Percent A 0.5 % (0-0.5); Lymphocytes Absolute Auto 2.32 K/mm3 (0.9-3.2); Lymphocytes Percent Auto 29.2 % (18.3-44.2); Mean Corpuscular HGB Conc 31.7 g/dl (32-36); Mean Corpuscular Hemoglobin 26.8 pg (26-34); Mean Corpuscular Volume 84.4 fl (80-100); Mean Platelet Volume 10.9 fl (7.4-10.4); Monocytes Absolute Auto 0.7 K/mm3 (0.1-0.6); Monocytes Percent Auto 9.3 % (2.6-8.5); Neutrophils Absolute Auto 4.5 K/mm3 (1.3-6.7); Neutrophils Percent Auto 56.1 % (45.5-73.1); Platelet Count Result 185 k/mm3 (150-375); Red Blood Count 5.08 M/mm3 (4.2-5.4); Red Cell Distribution Width 14.7 % (11.5-14.5)
[2023-03-30 12:56] LABS: INR 0.9
[2023-03-30 12:57] LABS: Alanine Aminotransferase 36 U/L (6-35); Albumin Level 4.4 g/dL (3.5-5.1); Alkaline Phosphatase 132 U/L (38-126); Anion Gap 10 mmol/L (8-16); Aspartate Amino Transferase 30 U/L (14-36); Bilirubin,Total 1.1 mg/dL (0.2-1.3); Blood Urea Nitrogen 12 mg/dL (7-17); Calcium 9.6 mg/dL (8.4-10.2); Carbon Dioxide 33 mmol/L (22-30); Chloride 91 mmol/L (98-107); Estimated CRCL calculation 117 ml/min; Estimated Glomerular Filt Rate > 60; Glucose 299 mg/dL (65-110); Partial Thromboplastin Time 26.3 SECONDS (22.3-36.8); Potassium 4.1 mmol/L (3.4-5.0); Sodium 134 mmol/L (137-145)
[2023-03-30 13:13] LABS: NT Pro B Type Natriuretic Pept 21 pg/mL (19.9-100); Troponin I < 0.012 ng/mL (0.000-0.034)
--- NOTE | 2023-03-30 15:55 | ED.SOB ---
HPI - SOB/Dyspnea General Chief Complaint: Shortness of Breath/Dyspnea Stated Complaint: sent from Cardiology - bronchitits ? Time Seen by Provider: 03/30/23 15:37 Source: patient, RN notes reviewed and old records reviewed Mode of arrival: ambulatory Limitations: no limitations History of Present Illness HPI Narrative: This is a 57 year old female with history of chronic sinus disease, obstructive sleep apnea, hypertension who presents from her machine trimmer office for evaluation of URI/bronchitis symptoms. Her machine trimmer reports that he has placed patient on diuretics and she has been tolerating but she continues to have shortness of breath due to uRI symptoms. Patient reports being hospitalized for strep tonsillitis 3-4 weeks ago and she has completed antibiotics. She continues to have hoarseness, mild sore throat, cough that is productive with yellow phlegm. She has been unable to sleep at night due to her severe coughing. She reports chest pain and abdominal pain from coughing. She has been taking tylenol cold and flu without relief. She reports her fever broke on Monday. She denies chest pain. She was evaluated by ENT recently and they are scheduling her for a tonsillectomy. She had pulmonary function test 2 days ago and did not qualify for home O2. Related Data Home Medications Medication Instructions Recorded Confirmed loratadine 10 mg tablet (Allergy 10 mg PO DAILY 02/06/20 03/30/23 Relief (loratadine)) omeprazole 20 mg capsule,delayed 20 mg PO DAILY 02/06/20 03/30/23 release olmesartan 5 mg tablet 10 mg PO DAILY 06/18/21 03/30/23 potassium chloride 20 mEq 20 meq PO DAILY 06/18/21 03/30/23 tablet,extended release(part/cryst) furosemide 20 mg tablet (Lasix) 20 mg PO DAILY 05/05/22 03/30/23 atorvastatin 20 mg tablet 20 mg PO DAILY 02/27/23 03/30/23 metolazone 2.5 mg tablet 2.5 mg PO DAILY 02/27/23 03/30/23 spironolactone 25 mg tablet 25 mg PO DAILY 02/27/23 03/30/23 Allergies Allergy/AdvReac Type Severity Reaction Status Date / Time codeine AdvReac Severe EXTREME GI Verified 03/30/23 20:19 UPSET lisinopril AdvReac Cough Verified 03/30/23 20:19 Review of Systems Constitutional: Constitutional: Reports fatigue, Reports fever(s) and Denies weakness Cardiovascular: Cardiovascular: Reports chest pain, Denies syncope, Denies rapid heart rate, Denies irregular heart rhythm, Denies leg edema and Reports dyspnea Respiratory: Respiratory: Reports chest congestion, Reports cough, Denies hemoptysis, Reports excessive phlegm production, Reports dyspnea and Reports wheezing Gastrointestinal: Gastrointestinal: Reports abdominal pain, Denies hematochezia, Denies diarrhea and Denies vomiting Genitourinary: Genitourinary: Denies hematuria and Denies dysuria Musculoskeletal: Musculoskeletal: Denies joint swelling, Denies loss of height and Denies muscle weakness Neurologic: Denies syncope, Denies focal weakness and Denies weakness PMFSH Past Medical History Medical History Allergies Arthritis Chronic anemia Chronic GERD Diabetes GERD (gastroesophageal reflux disease) Hyperlipidemia Hyperlipidemia associated with type 2 diabetes mellitus Hypertension Hypertension associated with diabetes ANTONIA (obstructive sleep apnea) Sleep apnea Surgical History Surgical History H/O spinal fusion H/O: hysterectomy Family History Family History Grandparent Cerebrovascular accident Mother Heart disease Family history of Alzheimer's disease Hypertension Cerebrovascular accident Father Malignant neoplasm of prostate Family history of Alzheimer's disease Hypertension Sibling Family history of heart disease in male family member before age 55 Hypertension Asthma Heart disease Daughter Hypertension Asthma Other Breast cancer Social Hi
[2023-03-30] MEDS: IPRATROPIUM BR 0.02% INH SOLN 0.5 MG/2.5 ML VIAL INHALATION ×2 (16:04→21:15)
[2023-03-30] MEDS: ALBUTEROL SULFATE NEB 2.5 MG/3 ML INH INHALATION ×2 (16:04→21:16)
[2023-03-30] MEDS: predniSONE 20 MG TABLET 60 MG PO (16:09)
[2023-03-30] MEDS: AZITHROMYCIN 500 MG/NS 250 ML 500 MG/250 ML BAG 250 MG IVPB (18:57)
[2023-03-30] MEDS: VANCOMYCIN 1,250 MG/NS 250 ML 1,250 MG/250 ML BAG 166.67 MG IVPB ×2 (20:10→20:11)
--- NOTE | 2023-03-30 20:18 | ADMGEN ---
This patient, Carin Haque, was admitted to Medical Room 349-01. Patient/family oriented to hospital policies and general routines including ID bracelet, bed and alarms, visiting hours, pain management, procedures, bathroom and other care routines, personal items, smoking policy, room service/diet, and visiting hours. Information on how to activate the Rapid Response Team has been discussed. Patient/Family are encouraged to report perceived risks to care and to ask questions if they do not understand what they are told or what they should do.
--- NOTE | 2023-03-30 21:01 | PC.NURSE ---
With arrival to the floor, patients blood sugar was checked. Noted a BS of 353. I was about to leave bedside to call physician regarding her sugar she shook her head and stated that ' don't do that'. When asked what doesn't she do, she responded with 'I don't take insulin'. Education was provided to this patient of insulin regulation and it's importance.
[2023-03-30 21:40] LABS: Glucose Point of Care 353 mg/dl (65-105)
--- NOTE | 2023-03-30 22:26 | PM.IMHP ---
H&P: HPI History of Present Illness Date/Time: 03/30/23 22:26 Chief Complaint: Shortness of breath Narrative: This is a 57-year-old female patient who has obstructive sleep apnea. She has a history of recurrent tonsillitis and has had 50+ episodes in her lifetime. She has had at least 3 and the last 3 episodes for the past 10 years. The patient has seen the ENT Dr. Mario who suggested that the patient have a tonsillectomy. The patient recently had a pulmonary function test on 03/28/2023.he spirometry is normal without evidence of an obstructive abnormality. There is no significant improvement after inhaling a single dose of albuterol.? The lung volumes are normal. The diffusing capacity is normal. She has no white count. Sodium 134. Chloride 91. Carbon dioxide is 33. Glucose 299 and 353. ALT is 36 alkaline phosphatase 132. Chest x-ray was read as following1. Mild bronchial wall thickening in the right perihilar region without focal airspace opacities which could be seen with bronchitis or reactive airway disease/asthma.1. Mild bronchial wall thickening in the right perihilar region without focal airspace opacities which could be seen with bronchitis or reactive airway disease/asthma. Chest CT was read as followsMild multifocal pneumonia of the right lung. The patient was given nebulizer treatments, prednisone, Rocephin, a azithromycin, vancomycin. The patient is being admitted to observation status on the date of service of 03/30/2023. Review of Systems Review of Systems: All systems reviewed & are unremarkable except as noted in HPI and below Constitutional: Constitutional: Reports as per HPI and Reports no additional constitutional complaints Eyes: Eyes: Reports as per HPI and Reports no additional eye complaints ENT: Reports system reviewed and no additional complaints, except as documented and Reports Normal hearing present Cardiovascular: Cardiovascular: Reports no additional cardiovascular complaints Respiratory: Respiratory: Reports no additional respiratory complaints and Reports no additional respiratory complaints Gastrointestinal: Gastrointestinal: Reports as per HPI and Reports no additional gastrointestinal complaints Musculoskeletal: Musculoskeletal: Reports no additional musculoskeletal complaints Integumentary/Breasts: Skin/Breast: Reports system reviewed and no additional complaints, except as docu and Reports as per HPI Neurologic: Reports system reviewed and no additional complaints, except as documented, Reports as per HPI and Reports Normal hearing present Psychiatric: Psychiatric: Reports no additional psychiatric complaints and Reports as per HPI Endocrine: Endocrine: Reports no additional endocrine complaints Hematologic/Lymphatic: Hematologic/Lymphatic: Reports no additional hematologic/lymphatic complaints Allergic/Immunologic: Allergic/Immunologic: Reports no additional allergic/immunologic complaints [facility] Past Medical History Medical History (Updated 03/31/23 @ 02:16 by Keely Long NP) Allergies Arthritis Chronic anemia Chronic GERD Diabetes GERD (gastroesophageal reflux disease) Hyperlipidemia Hyperlipidemia associated with type 2 diabetes mellitus Hypertension Hypertension associated with diabetes ANTONIA (obstructive sleep apnea) Sleep apnea Surgical History Surgical History (Updated 03/31/23 @ 02:08 by Keely Long NP) H/O spinal fusion H/O: hysterectomy Family History Family History Grandparent Cerebrovascular accident Mother Heart disease Family history of Alzheimer's disease Hypertension Cerebrovascular accident Father Malignant neoplasm of prostate Family history of Alzheimer's disease Hypertension Sibling Family history of heart disease in male family member before age 55 Hypertension Asthma Heart disease Daughter Hypertension Asthma Other Breast cancer Social History Soc
[2023-03-30] MEDS: CEFEPIME 2 GM/NS 50 ML 2 GM/50 ML BAG IVPB (22:56)
[2023-03-31] VITALS (14 sets, daily range): BP systolic 104–129; BP diastolic 56–75; PULSE 75–91; RESP 17–18; TEMP 36.6–37.1; O2SAT 92–97
[2023-03-31] MEDS: IPRATROPIUM BR 0.02% INH SOLN 0.5 MG/2.5 ML VIAL INHALATION ×4 (02:49→20:15)
[2023-03-31] MEDS: ALBUTEROL SULFATE NEB 2.5 MG/3 ML INH INHALATION ×4 (02:49→20:15)
[2023-03-31] MEDS: levoFLOXacin 750 MG/D5W 150 ML 750 MG/150 ML BAG 100 MG IVPB (03:04)
--- NOTE | 2023-03-31 05:08 | PCRCNOTE ---
Pt refused Hospital CPAP
[2023-03-31] MEDS: CEFEPIME 2 GM/NS 50 ML 2 GM/50 ML BAG IVPB ×3 (05:45→21:23)
[2023-03-31 08:03] LABS: Basophils Percent Auto 0.1 % (0.2-1.2); Eosinophils Percent Auto 0.2 % (0-4.4); Hematocrit 38.4 % (37.0-47.0); Hemoglobin 12.2 g/dL (12.0-15.0); Immature Granulocyte Absolute 0.05 K/mm3 (0.00-0.031); Immature Granulocyte Percent A 0.6 % (0-0.5); Lymphocytes Absolute Auto 1.56 K/mm3 (0.9-3.2); Lymphocytes Percent Auto 17.9 % (18.3-44.2); Mean Corpuscular HGB Conc 31.8 g/dl (32-36); Mean Corpuscular Hemoglobin 26.5 pg (26-34); Mean Corpuscular Volume 83.5 fl (80-100); Mean Platelet Volume 11.5 fl (7.4-10.4); Monocytes Absolute Auto 0.6 K/mm3 (0.1-0.6); Monocytes Percent Auto 6.3 % (2.6-8.5); Neutrophils Absolute Auto 6.5 K/mm3 (1.3-6.7); Neutrophils Percent Auto 74.9 % (45.5-73.1); Platelet Count Result 185 k/mm3 (150-375); Red Cell Distribution Width 14.6 % (11.5-14.5); White Blood Count 8.7 K/mm3 (4.5-10.0)
[2023-03-31 08:34] LABS: Alanine Aminotransferase 30 U/L (6-35); Albumin Level 3.7 g/dL (3.5-5.1); Alkaline Phosphatase 100 U/L (38-126); Anion Gap 6 mmol/L (8-16); Aspartate Amino Transferase 26 U/L (14-36); Bilirubin,Total 0.9 mg/dL (0.2-1.3); Blood Urea Nitrogen 12 mg/dL (7-17); Calcium 8.9 mg/dL (8.4-10.2); Carbon Dioxide 27 mmol/L (22-30); Chloride 95 mmol/L (98-107); Estimated CRCL calculation 135 ml/min; Estimated Glomerular Filt Rate > 60; Glucose 302 mg/dL (65-110); Potassium 3.8 mmol/L (3.4-5.0); Sodium 128 mmol/L (137-145)
[2023-03-31 09:04] LABS: Glucose Point of Care 310 mg/dl (65-105)
[2023-03-31] MEDS: FLUTICASONE PROPIONATE 0.05% NA SPR 16 GM BTL (*BKC) NASAL ×2 (10:01→21:21)
[2023-03-31 10:02] LABS: Hemoglobin A1C 9.8 % (<5.7)
[2023-03-31] MEDS: LORATADINE 10 MG TABLET PO (10:02)
[2023-03-31] MEDS: metOLazone 2.5 MG TABLET PO (10:02)
[2023-03-31] MEDS: PANTOPRAZOLE 40 MG TABLET PO (10:02)
[2023-03-31] MEDS: ATORVASTATIN 20 MG TABLET PO (10:02)
[2023-03-31] MEDS: FUROSEMIDE 20 MG TABLET PO (10:02)
[2023-03-31] MEDS: OLMESARTAN MEDOXOMIL 10 MG TABLET PO (10:02)
[2023-03-31] MEDS: POTASSIUM CHLORIDE 20 MEQ ER TABLET PO (10:02)
[2023-03-31] MEDS: SPIRONOLACTONE 25 MG TABLET PO (10:03)
--- NOTE | 2023-03-31 10:24 | PC.NURSE ---
Lisseth HURTADO notified of patient refusing insulin and glucose 310.
[2023-03-31 12:41] LABS: Glucose Point of Care 363 mg/dl (65-105)
[2023-03-31] MEDS: BENZONATATE 100 MG CAPSULE PO ×2 (13:11→16:58)
--- NOTE | 2023-03-31 15:04 | PM.IMPN ---
Progress Note: A&P Assessment and Plan (1) Pneumonia: Code(s): J18.9 - Pneumonia, unspecified organism Status: Acute Assessment and Plan: Continue with healthcare associated pneumonia. she was recently hospitalized approximately 2 and half weeks ago. The patient was recently treated with Augmentin for tonsillitis. Started on broad-spectrum antibiotics cefepime Levaquin and vancomycin. Blood and sputum cultures are pending continue with nebulizer treatments. Check Legionella and MRSA swab cultures as well. Temitope Glover p.r.n. for cough (2) Recurrent tonsillitis: Code(s): J03.91 - Acute recurrent tonsillitis, unspecified Status: Acute Assessment and Plan: The patient is followed by ENT and soon will be scheduled for tonsillectomy. (3) DM type 2 (diabetes mellitus, type 2): Code(s): E11.9 - Type 2 diabetes mellitus without complications Status: Acute Assessment and Plan: The patient's blood sugars are in the 300s. I could not find with the patient was taking any medications for diabetes. She was given a 1 time dose of prednisone in the emergency room. Accu-Cheks AC and HS with sliding scale insulin hemoglobin A1c is 9.8 Patient refuses all oral diabetic medications as well as insulin. She states that the only reason her sugars are elevated is because steroid use. Explained to patient that her A1c is 9.8 and that is unlikely that steroids alone has caused this. Patient states that she will not budge of this issue refuses all diabetes medications at this point. Will continue trying to convince patient to use insulin. Discussed the risks of not treating diabetes and she verbalized her understanding of this. (4) ANTONIA (obstructive sleep apnea): Code(s): G47.33 - Obstructive sleep apnea (adult) (pediatric) Status: Acute Assessment and Plan: Continue with home settings. (5) Hyperlipidemia associated with type 2 diabetes mellitus: Code(s): E11.69 - Type 2 diabetes mellitus with other specified complication; E78.5 - Hyperlipidemia, unspecified Status: Acute Assessment and Plan: Continue with atorvastatin Subjective Date/time seen: 03/31/23 15:04 Interval history: Patient up to the chair and feeling slightly better today. Patient continues to have cough with sputum production. Sputum is white in color. She denies any body aches, chills, nausea, vomiting, chest pain and dysuria. She does have some abdominal pain that is associated with coughing. She also expresses some shortness of breath with ambulation. Patient refuses all diabetic medications at this time. Risks were discussed with her and she verbalizes are understanding of this. Review of Systems Review of Systems: All systems reviewed & are unremarkable except as noted in HPI and below Exam Narrative: GENERAL: Comfortable, no acute distress HENMT: moist mucous membranes EYES: EOM intact b/l NECK: no lymphadenopathy RESPIRATORY: clear to auscultation CARDIO: RRR GI: soft, nontender, bowel sounds present SKIN: no rashes EXTREMITIES: +1 pitting edema bilateral lower extremities, no redness or tenderness. Objective Data Vital Signs Vital Signs: Vital Signs - 24 hr 03/30/23 15:37 03/30/23 15:40 03/30/23 16:07 Temperature Pulse Rate 100 92 Respiratory Rate 17 Blood Pressure Pulse Oximetry Oxygen Delivery Room Air 03/30/23 16:16 03/30/23 15:37 03/30/23 15:40 Temperature Pulse Rate 85 98 96 Respiratory Rate 16 28 H 17 Blood Pressure 146/95 H Pulse Oximetry 99 95 Oxygen Delivery 03/30/23 15:45 03/30/23 15:46 03/30/23 16:00 Temperature Pulse Rate 88 88 97 Respiratory Rate 18 16 31 H Blood Pressure 147/96 H Pulse Oximetry 94 94 95 Oxygen Delivery 03/30/23 16:02 03/30/23 16:15 03/30/23 16:16 Temperature Pulse Rate 92 87 88 Respiratory Rate 25 H 15 11 L Blood Pressure 148/95 H 148/95 H
[2023-03-31 17:47] LABS: Glucose Point of Care 490 mg/dl (65-105)
--- NOTE | 2023-03-31 17:50 | PC.NURSE ---
Dr Glover notified of patient refusing insulin when glucose is 490. I explained to the patient that her glucose is very high and she could end up in ICU if left untreated. Patient stated she understood and would left me know if she changed her mind.
--- NOTE | 2023-03-31 20:18 | PCRCNOTE ---
Pt says she still does not want to use the Hospital CPAP unit because she is hoping to go home. Benefits of wearing CPAP explained to pt.
[2023-03-31 22:05] LABS: Glucose Point of Care 403 mg/dl (65-105)
[2023-04-01] VITALS (11 sets, daily range): BP systolic 106–116; BP diastolic 50–63; PULSE 76–96; RESP 16–20; TEMP 36.2–37; O2SAT 94–98
[2023-04-01] MEDS: ALBUTEROL SULFATE NEB 2.5 MG/3 ML INH INHALATION ×4 (02:29→20:06)
[2023-04-01] MEDS: IPRATROPIUM BR 0.02% INH SOLN 0.5 MG/2.5 ML VIAL INHALATION ×4 (02:29→20:06)
[2023-04-01] MEDS: CEFEPIME 2 GM/NS 50 ML 2 GM/50 ML BAG IVPB ×3 (04:17→21:29)
[2023-04-01] MEDS: levoFLOXacin 750 MG/D5W 150 ML 750 MG/150 ML BAG 100 MG IVPB (04:17)
[2023-04-01 07:01] LABS: Basophils Percent Auto 0.4 % (0.2-1.2); Eosinophils Absolute Auto 0.3 K/mm3 (0-0.3); Eosinophils Percent Auto 3.8 % (0-4.4); Hematocrit 37.7 % (37.0-47.0); Hemoglobin 11.8 g/dL (12.0-15.0); Immature Granulocyte Absolute 0.02 K/mm3 (0.00-0.031); Immature Granulocyte Percent A 0.3 % (0-0.5); Lymphocytes Absolute Auto 2.68 K/mm3 (0.9-3.2); Lymphocytes Percent Auto 36.4 % (18.3-44.2); Mean Corpuscular HGB Conc 31.3 g/dl (32-36); Mean Corpuscular Hemoglobin 26.8 pg (26-34); Mean Corpuscular Volume 85.5 fl (80-100); Mean Platelet Volume 10.9 fl (7.4-10.4); Monocytes Absolute Auto 0.7 K/mm3 (0.1-0.6); Monocytes Percent Auto 9.5 % (2.6-8.5); Neutrophils Absolute Auto 3.7 K/mm3 (1.3-6.7); Neutrophils Percent Auto 49.6 % (45.5-73.1); Platelet Count Result 178 k/mm3 (150-375); Red Blood Count 4.41 M/mm3 (4.2-5.4); White Blood Count 7.4 K/mm3 (4.5-10.0)
[2023-04-01 07:10] LABS: Alanine Aminotransferase 30 U/L (6-35); Albumin Level 3.8 g/dL (3.5-5.1); Alkaline Phosphatase 98 U/L (38-126); Anion Gap 7 mmol/L (8-16); Aspartate Amino Transferase 29 U/L (14-36); Bilirubin,Total 0.9 mg/dL (0.2-1.3); Blood Urea Nitrogen 13 mg/dL (7-17); Calcium 8.9 mg/dL (8.4-10.2); Carbon Dioxide 30 mmol/L (22-30); Chloride 94 mmol/L (98-107); Estimated CRCL calculation 135 ml/min; Estimated Glomerular Filt Rate > 60; Glucose 297 mg/dL (65-110); Sodium 131 mmol/L (137-145)
[2023-04-01 07:27] LABS: Vancomycin Trough 11.3 ug/mL (10.0-20.0)
[2023-04-01 08:06] LABS: Glucose Point of Care 258 mg/dl (65-105)
[2023-04-01] MEDS: OLMESARTAN MEDOXOMIL 10 MG TABLET PO (09:25)
[2023-04-01] MEDS: metOLazone 2.5 MG TABLET PO (09:25)
[2023-04-01] MEDS: PANTOPRAZOLE 40 MG TABLET PO (09:25)
[2023-04-01] MEDS: ATORVASTATIN 20 MG TABLET PO (09:25)
[2023-04-01] MEDS: LORATADINE 10 MG TABLET PO (09:26)
[2023-04-01] MEDS: SPIRONOLACTONE 25 MG TABLET PO (09:26)
[2023-04-01] MEDS: BENZONATATE 100 MG CAPSULE PO ×3 (09:26→17:46)
[2023-04-01] MEDS: POTASSIUM CHLORIDE 20 MEQ ER TABLET PO (09:26)
[2023-04-01] MEDS: FUROSEMIDE 20 MG TABLET PO (09:26)
[2023-04-01] MEDS: FLUTICASONE PROPIONATE 0.05% NA SPR 16 GM BTL (*BKC) NASAL ×2 (09:28→17:46)
[2023-04-01 12:06] LABS: Glucose Point of Care 319 mg/dl (65-105)
--- NOTE | 2023-04-01 13:21 | PM.IMPN ---
Progress Note: A&P Assessment and Plan (1) Pneumonia: Code(s): J18.9 - Pneumonia, unspecified organism Status: Acute Assessment and Plan: Continue with healthcare associated pneumonia. she was recently hospitalized approximately 2 and half weeks ago. The patient was recently treated with Augmentin for tonsillitis. Started on broad-spectrum antibiotics initiated on 03/30/2023. Blood and sputum cultures are pending continue with nebulizer treatments. Legionella swab pending. Mycoplasma pneumonia ordered. MRSA swab negative and vancomycin discontinued. Continue on cefepime and Levaquin. Tessalon Perles p.r.n. for cough. (2) Recurrent tonsillitis: Code(s): J03.91 - Acute recurrent tonsillitis, unspecified Status: Acute Assessment and Plan: The patient is followed by ENT and soon will be scheduled for tonsillectomy. (3) DM type 2 (diabetes mellitus, type 2): Code(s): E11.9 - Type 2 diabetes mellitus without complications Status: Acute Assessment and Plan: The patient's blood sugars are in the 300s. I could not find with the patient was taking any medications for diabetes. She was given a 1 time dose of prednisone in the emergency room. Accu-Cheks AC and HS with sliding scale insulin Hemoglobin A1c is 9.8 Patient refuses all oral diabetic medications as well as insulin. She states that the only reason her sugars are elevated is because steroid use. Explained to patient that her A1c is 9.8 and that is unlikely that steroids alone has caused this. Patient states that she will not budge of this issue refuses all diabetes medications at this point. Will continue trying to convince patient to use insulin. Discussed the risks of not treating diabetes and she verbalized her understanding of this. (4) ANTONIA (obstructive sleep apnea): Code(s): G47.33 - Obstructive sleep apnea (adult) (pediatric) Status: Acute Assessment and Plan: Continue with home settings. (5) Hyperlipidemia associated with type 2 diabetes mellitus: Code(s): E11.69 - Type 2 diabetes mellitus with other specified complication; E78.5 - Hyperlipidemia, unspecified Status: Acute Assessment and Plan: Continue with atorvastatin Subjective Date/time seen: 04/01/23 13:21 Interval history: Patient sitting up on the side of the bed stating that she does not feel right today. She says that she feels overall very weak. I asked her she thinks that therapy would help and she said no. She scribed to is just feeling under the weather. She is not having any difficulty breathing. She has some chest tightness and abdominal pain with coughing but otherwise has no symptoms. Her cough sounds dry although she does have some production. She has not have any body aches or chills her symptoms of fever. Her vancomycin was discontinued today due to MRSA swab being negative. I suspect patient could probably go home tomorrow the next day. Review of Systems Review of Systems: All systems reviewed & are unremarkable except as noted in HPI and below Exam Narrative: GENERAL: Comfortable, no acute distress HENMT: moist mucous membranes EYES: EOM intact b/l NECK: no lymphadenopathy RESPIRATORY: clear to auscultation CARDIO: RRR GI: soft, nontender, bowel sounds present SKIN: no rashes EXTREMITIES: +1 pitting edema bilateral lower extremities, no redness or tenderness. Objective Data Vital Signs Vital Signs: Vital Signs - 24 hr 03/31/23 13:35 03/31/23 13:38 03/31/23 13:50 Temperature Pulse Rate 83 84 85 Respiratory Rate 18 18 18 Blood Pressure Pulse Oximetry 97 Oxygen Delivery Room Air 03/31/23 14:00 03/31/23 20:17 03/31/23 20:19 Temperature 97.9 F Pulse Rate 90 82 82 Respiratory Rate 17 18 18 Blood Pressure 116/58 L Pulse Oximetry 96 97 Oxygen Delivery Room Air 03/31/23 20:26 03/31/23 21:17 04/01/23 02:31 Temperature 98.7
[2023-04-01] MEDS: MAGNESIUM CITRATE 300 ML BTL PO (13:52)
--- NOTE | 2023-04-01 16:05 | PC.NURSE ---
Patient had complaints of her right upper arm peripheral IV being sore. RN called senior coworker to start new IV access, however, patient refused to have access started in her hands. Patient stated she will deal with the upper arm IV access for the time being. RN was able to complete one dose of IV antibiotics but once completed the line could not be flushed without pain. Provider was contacted regarding the best course of action as the patient was unwilling to have any peripheral IV access started without being ultrasound guided. Provider OK with midline insertion for IV antibiotic use. RN called house sitter to assist in getting [facility] notified. Gem request was put in, and provider was notified. Will continue to update provider with any change in plan.
[2023-04-01 17:34] LABS: Glucose Point of Care 309 mg/dl (65-105)
[2023-04-01] MEDS: guaiFENesin 600 MG/DEXTROMETHORPHAN 30 MG SR TAB 12 HR 1 TAB PO (21:29)
[2023-04-01] MEDS: CENTRAL LINE FLUSH 10 ML IV PUSH (21:30)
[2023-04-01 21:51] LABS: Glucose Point of Care 359 mg/dl (65-105)
[2023-04-02] VITALS (12 sets, daily range): BP systolic 110–125; BP diastolic 49–68; PULSE 78–93; RESP 16–22; TEMP 36.1–36.6; O2SAT 94–100
[2023-04-02] MEDS: IPRATROPIUM BR 0.02% INH SOLN 0.5 MG/2.5 ML VIAL INHALATION ×4 (02:13→20:21)
[2023-04-02] MEDS: ALBUTEROL SULFATE NEB 2.5 MG/3 ML INH INHALATION ×4 (02:14→20:21)
[2023-04-02] MEDS: levoFLOXacin 750 MG/D5W 150 ML 750 MG/150 ML BAG 100 MG IVPB (02:22)
[2023-04-02 04:15] LABS: Basophils Percent Auto 0.2 % (0.2-1.2); Eosinophils Absolute Auto 0.3 K/mm3 (0-0.3); Eosinophils Percent Auto 3.7 % (0-4.4); Hematocrit 36.7 % (37.0-47.0); Hemoglobin 11.6 g/dL (12.0-15.0); Immature Granulocyte Absolute 0.03 K/mm3 (0.00-0.031); Immature Granulocyte Percent A 0.4 % (0-0.5); Lymphocytes Percent Auto 34.6 % (18.3-44.2); Mean Corpuscular HGB Conc 31.6 g/dl (32-36); Mean Corpuscular Hemoglobin 26.5 pg (26-34); Mean Platelet Volume 11.4 fl (7.4-10.4); Monocytes Absolute Auto 0.8 K/mm3 (0.1-0.6); Monocytes Percent Auto 9.9 % (2.6-8.5); Neutrophils Absolute Auto 4.2 K/mm3 (1.3-6.7); Neutrophils Percent Auto 51.2 % (45.5-73.1); Platelet Count Result 174 k/mm3 (150-375); Red Blood Count 4.37 M/mm3 (4.2-5.4); Red Cell Distribution Width 14.8 % (11.5-14.5); White Blood Count 8.1 K/mm3 (4.5-10.0)
[2023-04-02 04:27] LABS: Alanine Aminotransferase 34 U/L (6-35); Albumin Level 3.4 g/dL (3.5-5.1); Alkaline Phosphatase 94 U/L (38-126); Anion Gap 5 mmol/L (8-16); Aspartate Amino Transferase 31 U/L (14-36); Bilirubin,Total 0.9 mg/dL (0.2-1.3); Blood Urea Nitrogen 13 mg/dL (7-17); Calcium 8.8 mg/dL (8.4-10.2); Carbon Dioxide 28 mmol/L (22-30); Chloride 93 mmol/L (98-107); Estimated CRCL calculation 135 ml/min; Estimated Glomerular Filt Rate > 60; Glucose 253 mg/dL (65-110); Potassium 3.3 mmol/L (3.4-5.0); Sodium 126 mmol/L (137-145)
[2023-04-02] MEDS: CEFEPIME 2 GM/NS 50 ML 2 GM/50 ML BAG IVPB ×3 (06:49→20:21)
[2023-04-02] MEDS: CENTRAL LINE FLUSH 10 ML IV PUSH ×3 (06:50→20:21)
[2023-04-02] MEDS: SODIUM CHLORIDE 0.9% IV 500 ML 100 ML IV CONT (09:16)
[2023-04-02] MEDS: LORATADINE 10 MG TABLET PO (09:17)
[2023-04-02] MEDS: ATORVASTATIN 20 MG TABLET PO (09:17)
[2023-04-02] MEDS: POTASSIUM CHLORIDE 20 MEQ ER TABLET PO (09:17)
[2023-04-02] MEDS: PANTOPRAZOLE 40 MG TABLET PO (09:17)
[2023-04-02] MEDS: BENZONATATE 100 MG CAPSULE PO ×3 (09:17→17:46)
[2023-04-02] MEDS: SPIRONOLACTONE 25 MG TABLET PO (09:17)
[2023-04-02] MEDS: FLUTICASONE PROPIONATE 0.05% NA SPR 16 GM BTL (*BKC) NASAL ×2 (09:17→17:46)
[2023-04-02] MEDS: guaiFENesin 600 MG/DEXTROMETHORPHAN 30 MG SR TAB 12 HR 1 TAB PO ×2 (09:17→20:21)
[2023-04-02] MEDS: OLMESARTAN MEDOXOMIL 10 MG TABLET PO (09:17)
[2023-04-02 09:37] LABS: Glucose Point of Care 288 mg/dl (65-105)
--- NOTE | 2023-04-02 11:16 | PC.NURSE ---
Patient refusing sliding scale insulin at this time. Educated patient about risks of hyperglycemia.
--- NOTE | 2023-04-02 12:51 | PM.IMPN ---
Progress Note: A&P Assessment and Plan (1) Pneumonia: Code(s): J18.9 - Pneumonia, unspecified organism Status: Acute Assessment and Plan: Continue with healthcare associated pneumonia. she was recently hospitalized approximately 2 and half weeks ago. The patient was recently treated with Augmentin for tonsillitis. Started on broad-spectrum antibiotics initiated on 03/30/2023. Blood and sputum cultures are pending continue with nebulizer treatments. Legionella swab pending. Mycoplasma pneumonia ordered. MRSA swab negative and vancomycin discontinued. Continue on cefepime and Levaquin. Tessalon Perles p.r.n. for cough. (2) Recurrent tonsillitis: Code(s): J03.91 - Acute recurrent tonsillitis, unspecified Status: Acute Assessment and Plan: The patient is followed by ENT and soon will be scheduled for tonsillectomy. (3) DM type 2 (diabetes mellitus, type 2): Code(s): E11.9 - Type 2 diabetes mellitus without complications Status: Acute Assessment and Plan: The patient's blood sugars are in the 300s. I could not find with the patient was taking any medications for diabetes. She was given a 1 time dose of prednisone in the emergency room. Accu-Cheks AC and HS with sliding scale insulin Hemoglobin A1c is 9.8 Patient refuses all oral diabetic medications as well as insulin. She states that the only reason her sugars are elevated is because steroid use. Explained to patient that her A1c is 9.8 and that is unlikely that steroids alone has caused this. Patient states that she will not budge of this issue refuses all diabetes medications at this point. Will continue trying to convince patient to use insulin. Discussed the risks of not treating diabetes and she verbalized her understanding of this. (4) ANTONIA (obstructive sleep apnea): Code(s): G47.33 - Obstructive sleep apnea (adult) (pediatric) Status: Acute Assessment and Plan: Continue with home settings. (5) Hyperlipidemia associated with type 2 diabetes mellitus: Code(s): E11.69 - Type 2 diabetes mellitus with other specified complication; E78.5 - Hyperlipidemia, unspecified Status: Acute Assessment and Plan: Continue with atorvastatin (6) Hyponatremia: Code(s): E87.1 - Hypo-osmolality and hyponatremia Status: Acute Assessment and Plan: Patient's sodium this morning was 126. Plan to give patient 500 mL of fluids to see if this helps raise her sodium. She does take metolazone and furosemide. Both of those have been put on hold until her sodium has recovered. Subjective Date/time seen: 04/02/23 12:51 Interval history: Patient states she feels better today. She had have midline placed due to her not wanting any other type of IV put in to her body. She refused any other form of IV. her cough is much improved. She still has some sputum production but it is sparse and white to clear in color. Still has some abdominal and chest discomfort with coughing. Her sodium this morning was 126. Her metolazone and furosemide worsen on hold. Once her sodium stabilizes she should be able to discharge on p.o. antibiotics. Exam Narrative: GENERAL: Comfortable, no acute distress, morbid obesity HENMT: moist mucous membranes EYES: EOM intact b/l NECK: no lymphadenopathy RESPIRATORY: clear to auscultation CARDIO: RRR GI: soft, nontender, bowel sounds present SKIN: no rashes EXTREMITIES: +1 pitting edema bilateral lower extremities, no redness or tenderness. Objective Data Vital Signs Vital Signs: Vital Signs - 24 hr 04/01/23 14:00 04/01/23 14:29 04/01/23 14:46 Temperature 97.2 F L Pulse Rate 96 76 80 Respiratory Rate 16 18 18 Blood Pressure 112/61 Pulse Oximetry 95 Oxygen Delivery 04/01/23 20:06 04/01/23 20:25 04/01/23 21:27 Temperature 98.2 F Pulse Rate 78 82 85 Respiratory Rate 18 20 18 Blood Pressure 109/58 L Pu
[2023-04-02 13:17] LABS: Glucose Point of Care 284 mg/dl (65-105)
[2023-04-02 15:41] LABS: Anion Gap 6 mmol/L (8-16); Blood Urea Nitrogen 17 mg/dL (7-17); Calcium 8.9 mg/dL (8.4-10.2); Carbon Dioxide 25 mmol/L (22-30); Chloride 94 mmol/L (98-107); Estimated CRCL calculation 104 ml/min; Estimated Glomerular Filt Rate > 60; Glucose 339 mg/dL (65-110); Potassium 3.5 mmol/L (3.4-5.0); Sodium 125 mmol/L (137-145)
[2023-04-02 17:50] LABS: Glucose Point of Care 303 mg/dl (65-105)
--- NOTE | 2023-04-02 20:26 | PC.NURSE ---
Pts [id number] and is refusing any tx physician aware
[2023-04-02 20:28] LABS: Glucose Point of Care 461 mg/dl (65-105)
[2023-04-03] MEDS: IPRATROPIUM BR 0.02% INH SOLN 0.5 MG/2.5 ML VIAL INHALATION ×2 (02:12→07:20)
[2023-04-03] MEDS: ALBUTEROL SULFATE NEB 2.5 MG/3 ML INH INHALATION ×2 (02:12→07:20)
[2023-04-03 02:13] VITALS: PULSE 82; RESP 20
[2023-04-03 02:20] VITALS: PULSE 82; PULSE 84; RESP 18; RESP 20; O2SAT 95
[2023-04-03] MEDS: levoFLOXacin 750 MG/D5W 150 ML 750 MG/150 ML BAG 100 MG IVPB (03:00)
[2023-04-03 05:13] VITALS: BP 111/54; PULSE 93; RESP 22; TEMP 36.6; O2SAT 99
[2023-04-03] MEDS: CENTRAL LINE FLUSH 10 ML IV PUSH (06:08)
[2023-04-03] MEDS: CEFEPIME 2 GM/NS 50 ML 2 GM/50 ML BAG IVPB (06:08)
[2023-04-03 07:20] VITALS: PULSE 91; RESP 20; O2SAT 92
[2023-04-03 07:38] VITALS: PULSE 90; RESP 20
[2023-04-03 08:24] LABS: Glucose Point of Care 285 mg/dl (65-105)
[2023-04-03] MEDS: ATORVASTATIN 20 MG TABLET PO (08:36)
[2023-04-03] MEDS: FLUTICASONE PROPIONATE 0.05% NA SPR 16 GM BTL (*BKC) NASAL (08:36)
[2023-04-03] MEDS: BENZONATATE 100 MG CAPSULE PO (08:36)
[2023-04-03] MEDS: guaiFENesin 600 MG/DEXTROMETHORPHAN 30 MG SR TAB 12 HR 1 TAB PO (08:36)
[2023-04-03] MEDS: POTASSIUM CHLORIDE 20 MEQ ER TABLET PO (08:37)
[2023-04-03] MEDS: PANTOPRAZOLE 40 MG TABLET PO (08:37)
[2023-04-03] MEDS: LORATADINE 10 MG TABLET PO (08:37)
[2023-04-03] MEDS: OLMESARTAN MEDOXOMIL 10 MG TABLET PO (08:37)
[2023-04-03] MEDS: SPIRONOLACTONE 25 MG TABLET PO (08:37)
--- NOTE | 2023-04-03 09:49 | PC.NURSE ---
Hospital Education Coordinator talked to patient about blood sugars and the need for insulin. Patient refusing insulin at this time despite her blood sugars being elevated. Hospital Education Coordinator explained the benefits of taking insulin and the risks of not and allowing blood sugars to be uncontrolled. Patient still refusing insulin.
--- NOTE | 2023-04-03 10:55 | PM.DS ---
DS: Admitting Diagnosis Discharge Date 04/03/23 Admitting Diagnosis pneumonia DS: Discharge Diagnosis Discharge Diagnosis (1) Pneumonia: Code(s): J18.9 - Pneumonia, unspecified organism Status: Acute Assessment and Plan: Continue with healthcare associated pneumonia. she was recently hospitalized approximately 2 and half weeks ago. The patient was recently treated with Augmentin for tonsillitis. Started on broad-spectrum antibiotics initiated on 03/30/2023. Blood and sputum cultures are pending continue with nebulizer treatments. Legionella swab pending. Mycoplasma pneumonia ordered. MRSA swab negative and vancomycin discontinued. Continue on cefepime and Levaquin. Tessalon Perles p.r.n. for cough. (2) Recurrent tonsillitis: Code(s): J03.91 - Acute recurrent tonsillitis, unspecified Status: Acute Assessment and Plan: The patient is followed by ENT and soon will be scheduled for tonsillectomy. (3) DM type 2 (diabetes mellitus, type 2): Code(s): E11.9 - Type 2 diabetes mellitus without complications Status: Acute Assessment and Plan: The patient's blood sugars are in the 300s. I could not find with the patient was taking any medications for diabetes. She was given a 1 time dose of prednisone in the emergency room. Accu-Cheks AC and HS with sliding scale insulin Hemoglobin A1c is 9.8 Patient refuses all oral diabetic medications as well as insulin. She states that the only reason her sugars are elevated is because steroid use. Explained to patient that her A1c is 9.8 and that is unlikely that steroids alone has caused this. Patient states that she will not budge of this issue refuses all diabetes medications at this point. Will continue trying to convince patient to use insulin. Discussed the risks of not treating diabetes and she verbalized her understanding of this. (4) ANTONIA (obstructive sleep apnea): Code(s): G47.33 - Obstructive sleep apnea (adult) (pediatric) Status: Acute Assessment and Plan: Continue with home settings. (5) Hyperlipidemia associated with type 2 diabetes mellitus: Code(s): E11.69 - Type 2 diabetes mellitus with other specified complication; E78.5 - Hyperlipidemia, unspecified Status: Acute Assessment and Plan: Continue with atorvastatin (6) Hyponatremia: Code(s): E87.1 - Hypo-osmolality and hyponatremia Status: Acute Assessment and Plan: Patient's sodium this morning was 126. Plan to give patient 500 mL of fluids to see if this helps raise her sodium. She does take metolazone and furosemide. Both of those have been put on hold until her sodium has recovered. sodium corrected for hyperglycemia was 134. DS: Summary Hospital Course Hospital Course: This is a 48-year-old female with a history ANTONIA, hyperlipidemia, diabetes, and heart disease on 3 diuretics the present to the ED on 03/30/2023 due to cough and shortness of breath. She has a history of 50+ episodes of tonsillitis in her lifetime and follows Dr. Gasca. She is supposed to get tonsillectomy sometime in the near future. 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 Chest CT revealed mild multifocal pneumonia of the right lung. Patient was recently hospitalized due to tonsillitis approximately 2 weeks before current hospital presentation. Further the recent of recently being hospitalized she was treated for hospital-acquired pneumonia. She was started on Rocephin, azithromycin and vancomycin. MRSA swab ordered an was negative. Vancomycin was discontinued. Patient did improve with antibiotic therapy. Her sputum culture came back normal. Her sputum production and shortness of breath improved. She still has a cough which could go on for a couple weeks. Patient does have history of diabet
[2023-04-04 04:13] LABS: Legionella pneumophila Ag Ur Not Detected (Not Detected)
== END 2023-04-03 12:46 | disposition home or self-care (01) | DRG 194 ==
LOC: ANHED 16:41 → ANH3MED 19:44
PROVIDERS: Nurse Practitioner; Admitting Provider Internal Medicine; Emergency Provider General Practice; Visit Provider Internal Medicine Critical Care Medicine
DX: J18.9 Pneumonia, unspecified organism (principal); E87.1 Hypo-osmolality and hyponatremia; J03.91 Acute recurrent tonsillitis, unspecified; E78.5 Hyperlipidemia, unspecified; E11.65 Type 2 diabetes mellitus with hyperglycemia; G47.33 Obstructive sleep apnea (adult) (pediatric); I10 Essential (primary) hypertension; K21.9 Gastro-esophageal reflux disease without esophagitis; Z98.1 Arthrodesis status; Z90.710 Acquired absence of both cervix and uterus
CPT/HCPCS: 36415; 36569; 71046; 71260; 80048; 80053; 80202; 82948; 83036; 83880; 84484; 85025; 85610; 85730; 87040; 87070; 87081; 87205; 87449; 93005; 94640; 94664; 96365; 96366; 96367; 99285; A9270; C1751; G0378; J0456; J0692; J0696; J1956; J3370; J7040; J7512; Q9967

== ENCOUNTER 2023-05-18 11:32 | Outpatient (CLI) | payer BC, SELFPAY ==
[2023-05-18 11:56] LABS: Anion Gap 9 mmol/L (8-16); Blood Urea Nitrogen 9 mg/dL (7-17); Calcium 9.8 mg/dL (8.4-10.2); Carbon Dioxide 30 mmol/L (22-30); Chloride 95 mmol/L (98-107); Estimated Glomerular Filt Rate > 60; Glucose 360 mg/dL (65-110); Potassium 3.7 mmol/L (3.4-5.0); Sodium 134 mmol/L (137-145)
== END 2023-05-18 11:33 | disposition home or self-care (01) ==
LOC: ANHLAB 11:34
PROVIDERS: Visit Provider Anesthesiology
DX: E87.1 Hypo-osmolality and hyponatremia (principal); Z01.818 Encounter for other preprocedural examination
CPT/HCPCS: 36415; 80048

== ENCOUNTER 2023-10-16 11:24 | Outpatient (CLI) | payer BC, SELFPAY ==
[2023-10-16 12:49] LABS: HIV 1/2 Ab P24 Ag Result Negative (Negative)
[2023-10-16 13:34] LABS: Hepatitis B Surface Antigen Negative (Negative)
[2023-10-16 13:39] LABS: Hepatitis B Core IgM Result Negative (Negative)
[2023-10-16 13:52] LABS: Hepatitis C Virus Antibody Negative (Negative)
[2023-10-16 14:57] LABS: Rapid Plasma Reagin Non-Reactive (NonReactive)
== END 2023-10-16 11:25 | disposition home or self-care (01) ==
LOC: ANHLAB 11:27
PROVIDERS: Visit Provider Nurse Practitioner
DX: A64 Unspecified sexually transmitted disease (principal)
CPT/HCPCS: 36415; 86592; 86703; 86705; 86803; 87340; G0432

== ENCOUNTER 2024-02-19 13:47 | Outpatient (CLI) | payer BC, SELFPAY ==
--- NOTE | ~2024-02-19 | US_ITS ---
EXAMINATION: US carotid duplex BI DATE: 02/19/2024 15:04 INDICATION: Left carotid bruit. TECHNIQUE: Grayscale, color Doppler, and pulsed Doppler images of the cervical carotid arteries were obtained. The degree of vessel stenosis is placed in one of the following categories: normal, <50%, 5 0-69%, >=70% but less than near-occlusion, near-occlusion, or total occlusion. Note that percent sten osis relative to normal distal artery lumen diameter is indirectly measured from velocity measurement s as described by Germain, et al. Radiology 2003; 229:340-346. COMPARISON: Neck CT 03/06/2023 FINDINGS: RIGHT: The right common carotid artery (CCA) peak systolic velocity (PSV) is 99 cm/s. The right internal car otid artery (ICA) PSV is 103 cm/s. The right ICA end-diastolic velocity (EDV) is 27 cm/s. The right I CA/CCA PSV ratio is 1.2. Grayscale and color Doppler images yield an estimate of <50% diameter reduct ion from plaque in the ICA. There is antegrade flow in the right vertebral artery. LEFT: The left CCA PSV is 83 cm/s. The left ICA PSV is 65 cm/s. The left ICA EDV is 18 cm/s. The left ICA/C CA PSV ratio is 0.8. Grayscale and color Doppler images yield an estimate of <50% diameter reduction from plaque in the ICA. There is antegrade flow in the left vertebral artery. IMPRESSION: 1. <50% stenosis in the right internal carotid artery. 2. <50% stenosis in the left internal carotid artery. Reviewed, dictated and finalized at location A.
== END 2024-02-19 13:48 | disposition home or self-care (01) ==
LOC: ANHIMG 13:57
PROVIDERS: Visit Provider Internal Medicine Cardiovascular Disease
DX: R09.89 Other specified symptoms and signs involving the circulatory and respiratory systems (principal); I65.23 Occlusion and stenosis of bilateral carotid arteries
CPT/HCPCS: 93880

== ENCOUNTER 2024-03-04 23:49 | Emergency (ER) | payer BC, SELFPAY ==
--- NOTE | ~2024-03-04 | XR_ITS ---
Clinical Indication: Chest pain PA and lateral views of the chest: Comparison: 03/30/2023 Findings: The lungs are clear, without evidence of focal consolidation or pleural effusion. Cardiome diastinal silhouette is within normal limits. Bones and soft tissues are unremarkable. Impression: Normal chest. Reviewed, dictated and finalized at location . Impression: Normal chest.
[2024-03-05 00:10] VITALS: BP 154/81; PULSE 72; RESP 20; TEMP 36.2; O2SAT 99
[2024-03-05 00:25] LABS: Basophils Percent Auto 0.3 % (0.2-1.2); Eosinophils Absolute Auto 0.2 K/mm3 (0-0.3); Hematocrit 40.2 % (37.0-47.0); Hemoglobin 12.6 g/dL (12.0-15.0); Immature Granulocyte Absolute 0.02 K/mm3 (0.00-0.031); Immature Granulocyte Percent A 0.2 % (0-0.5); Lymphocytes Absolute Auto 2.48 K/mm3 (0.9-3.2); Mean Corpuscular HGB Conc 31.3 g/dl (32-36); Mean Corpuscular Hemoglobin 26.9 pg (26-34); Mean Corpuscular Volume 85.7 fl (80-100); Monocytes Absolute Auto 0.7 K/mm3 (0.1-0.6); Monocytes Percent Auto 8.2 % (2.6-8.5); Neutrophils Absolute Auto 5.4 K/mm3 (1.3-6.7); Neutrophils Percent Auto 61.3 % (45.5-73.1); Platelet Count Result 223 k/mm3 (150-375); Red Blood Count 4.69 M/mm3 (4.2-5.4); Red Cell Distribution Width 15.3 % (11.5-14.5); White Blood Count 8.9 K/mm3 (4.5-10.0)
[2024-03-05 00:35] LABS: Partial Thromboplastin Time 26.9 Seconds (22.3-36.8); Prothrombin Time 13.2 Seconds (11.1-14.7)
[2024-03-05 00:39] LABS: Alanine Aminotransferase 16 U/L (6-35); Alkaline Phosphatase 98 U/L (38-126); Anion Gap 6 mmol/L (4-12); Aspartate Amino Transferase 21 U/L (14-36); Bilirubin,Total 0.8 mg/dL (0.2-1.3); Blood Urea Nitrogen 16 mg/dL (7-17); Calcium 9.7 mg/dL (8.4-10.2); Carbon Dioxide 32 mmol/L (22-30); Chloride 100 mmol/L (98-107); Estimated CRCL calculation 88 ml/min; Estimated Glomerular Filt Rate > 60; Glucose 135 mg/dL (65-110); Lipase 56 U/L (23-300); Potassium 4.1 mmol/L (3.4-5.0); Sodium 138 mmol/L (137-145)
[2024-03-05 00:50] LABS: Troponin I < 0.012 ng/mL (0.000-0.034)
--- NOTE | 2024-03-05 03:30 | ECG_ITS ---
Test Date: 2024-03-05 00:10:23 Measurements Intervals [place] Rate: 70 P: 59 NM: 164 QRS: 18 QRSD: 102 T: 36 QT: 428 QTc: 463 Interpretive Statements SINUS RHYTHM POSSIBLE LEFT ATRIAL ENLARGEMENT BORDERLINE ECG No previous ECG available for comparison Electronically Signed On 03-05-2024 06:12:40 CDT by Luis Felipe Orellaan D.O.
--- NOTE | 2024-03-05 03:33 | ECG_ITS ---
Test Date: 2024-03-05 03:33:26 Measurements Intervals [place] Rate: 66 P: 63 [place]: 174 QRS: 42 QRSD: 101 T: 48 QT: 457 QTc: 481 Interpretive Statements SINUS RHYTHM POSSIBLE LEFT ATRIAL ENLARGEMENT BORDERLINE ECG Compared to ECG 03/05/2024 00:10:23 NO SIGNIFICANT CHANGE Electronically Signed On 03-05-2024 08:31:42 CDT by Luis Felipe Orellana D.O.
[2024-03-05 03:50] VITALS: BP 137/80; PULSE 67; RESP 14; TEMP 37.1; O2SAT 98
[2024-03-05 03:52] VITALS: O2SAT 98
[2024-03-05 03:54] VITALS: BP 130/74; PULSE 66; RESP 14; O2SAT 97
[2024-03-05 03:54] LABS: Troponin I < 0.012 ng/mL (0.000-0.034)
--- NOTE | 2024-03-05 04:01 | ED.CHESTPAIN ---
HPI - Chest Pain General Chief Complaint: Chest Pain Stated Complaint: chest pain, nausea, light headed Time Seen by Provider: 03/05/24 03:39 History of Present Illness HPI narrative: Patient is a 58-year-old female who presents to the emergency department this evening complaining of chest tightness and nausea. Patient states the symptoms started earlier today and she decided to come to the emergency department for further evaluation. Patient also has been struggling with bilateral lower extremity edema and sometime she notices all over her body. She was placed on a water pill to help with this but states that sometimes water helps help and sometimes they do not. She has been following up with 1 of our sawmill tally clerk, Dr. Ochoa. patient states that approximately 1 year ago she was showing signs of early heart feeling but cannot elaborate on what that is. Chart review did not reveal any previous echocardiogram. Patient is currently denying any active chest pain at this in the emergency department. She also denies any shortness of breath, and denies any fevers or chills at home. No additional symptoms or concerns at this time. Related Data Home Medications Medication Instructions Recorded Confirmed loratadine 10 mg tablet (Allergy 10 mg PO DAILY 02/06/20 05/15/23 Relief (loratadine)) omeprazole 20 mg capsule,delayed 20 mg PO DAILY 02/06/20 05/15/23 release olmesartan 5 mg tablet 10 mg PO DAILY 06/18/21 05/15/23 potassium chloride 20 mEq 20 meq PO DAILY 06/18/21 05/15/23 tablet,extended release(part/cryst) furosemide 20 mg tablet (Lasix) 20 mg PO DAILY 05/05/22 05/15/23 atorvastatin 20 mg tablet 20 mg PO DAILY 02/27/23 05/15/23 metolazone 2.5 mg tablet 2.5 mg PO EVERY OTHER DAY 02/27/23 05/15/23 spironolactone 25 mg tablet 25 mg PO DAILY 02/27/23 05/15/23 fluticasone propionate 50 1 - 2 spray intranasal BID PRN 05/15/23 05/15/23 mcg/actuation nasal Nasal Congestion spray,suspension (Flonase Allergy Relief) Allergies Allergy/AdvReac Type Severity Reaction Status Date / Time codeine AdvReac Severe EXTREME GI Verified 03/04/24 23:49 UPSET lisinopril AdvReac Cough Verified 03/04/24 23:49 Review of Systems Review of Systems: All systems are reviewed and are negative unless stated otherwise in the HPI. [facility] Past Medical History Medical History Allergies Arthritis Chronic anemia Chronic GERD Diabetes GERD (gastroesophageal reflux disease) Hyperlipidemia Hyperlipidemia associated with type 2 diabetes mellitus Hypertension Hypertension associated with diabetes ANTONIA (obstructive sleep apnea) Sleep apnea Surgical History Surgical History H/O spinal fusion H/O: hysterectomy Family History Family History Grandparent Cerebrovascular accident Mother Heart disease Family history of Alzheimer's disease Hypertension Cerebrovascular accident Father Malignant neoplasm of prostate Family history of Alzheimer's disease Hypertension Sibling Family history of heart disease in male family member before age 55 Hypertension Asthma Heart disease Daughter Hypertension Asthma Other Breast cancer Social History Social History Social History: The patient is and has 3 children. 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 Patient is lifelong nonsmoker. Code status full code Smoking status: Never smoker Alcohol intake: never Substance use: never Lack of Transportation: No Lack of Food: Never True Current Housing: I Have Housing Concerned About Future Housing: No Difficulty Paying Gas/Electric Bills: No Difficulty Paying for Meds: No Currently Unemployed: No Education: Associate Degree Difficulty w/ Childcare or Fami
[2024-03-05 04:14] LABS: NT Pro B Type Natriuretic Pept 143 pg/mL (19.9-100)
[2024-03-05 04:37] VITALS: BP 131/76; PULSE 78; RESP 14; O2SAT 97
== END 2024-03-05 04:38 | disposition home or self-care (01) ==
PROVIDERS: Emergency Provider Emergency Medicine
DX: R60.0 Localized edema (principal); R07.9 Chest pain, unspecified; M19.90 Unspecified osteoarthritis, unspecified site; D64.9 Anemia, unspecified; K21.9 Gastro-esophageal reflux disease without esophagitis; E78.5 Hyperlipidemia, unspecified; I15.2 Hypertension secondary to endocrine disorders; E11.8 Type 2 diabetes mellitus with unspecified complications; G47.30 Sleep apnea, unspecified
CPT/HCPCS: 36415; 71046; 80053; 83690; 83880; 84484; 85025; 85610; 85730; 93005; 99284

== ENCOUNTER 2025-01-09 14:09 | Outpatient (CLI) | payer BC, SELFPAY ==
--- NOTE | ~2025-01-09 | MM_ITS ---
EXAMINATION: MM screening [facility] BI w mehdi HISTORY: Screening TECHNIQUE: Craniocaudal and mediolateral oblique 3-D tomosynthesis images were obtained and synthetic 2-D images were generated. CAD analysis was submitted and interpreted. COMPARISON: Comparison to multiple prior studies sequentially, with oldest reviewed study dated 05/26. BREAST PARENCHYMAL COMPOSITION: Not dense: There are scattered areas of fibroglandular density. FINDINGS: There is no evidence of suspicious mass, calcification, or architectural distortion to sugg est malignancy in either breast. There has been no suspicious interval change. IMPRESSION: 1. No mammographic evidence of malignancy. 2. Recommend routine screening mammography in one year. BI-RADS Category 1: Negative Reviewed, dictated and finalized at location A.
--- OUTSIDE RECORDS SUMMARY | 2025-01-09 14:15 | XMS_ITS | Encounter Summary ---
Author Organization [facility] Health Address [address] [place] [address] Care Team Providers Care Drying Machine Receiver Name Role Phone Shree Negrete MD Primary Care Provider Reason for Visit * Reason Onset Date Comments Forms/questionnaires 03/16/2018 FMLA Encounter Details Date Type Department Care Team (Late st Contact Info) Description 03/16/2018 Telephone [facility] [address] [place] [address] Jacob Johnson, DO [address] [place] [id number] Forms/questionnaires (FMLA) Social History Tobacco Use Types Packs/Day Years Used Date Smoking Tobacco: Never Assessed Comments Unknown Sex and Gender Information Value Date Recorded Sex Assigned at Not on file 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
--- OUTSIDE RECORDS SUMMARY | 2025-01-09 14:15 | XMS_ITS | Clinical Summary ---
Author Organization [facility] Address [address] [place] [address] Care Team Providers Care Bell Clerk Name Role Phone Shree Negrete MD Primary Care Provider Source Comments [facility],non-owned Affiliates and Associated Physician Practices is amultiple site organization consisting of ambulatory clinics and hospital sitesin [place], [place] and [place]. This disclosure is being madepursuant to the Care Everywhere program and may not contain all information available regarding this patient. Last updated 18.[facility] Allergies Active Allergy Reactions Criticality Noted Date Comments Amlodipine Base Swelling Medium 03/05/2020 Lisinopril Cough Low 10/18/2019 Losartan Other Low 10/18/2019 Severe back pain but patient takes anyway Severe back pain Severe back pain but patient takes anyway Severe back pain Severe back pain but patient takes anyway Medications * Be aware that medications may not be up to date on this document. Alwaysverify current medications with the patient. LOSARTAN POTASSIUM PO Active fluticasone propionate (FLONASE) 50 MCG/ACT nasal spray USE 2 SPRAYS IN EACH NOSTRIL QD 4 8 Active loratadine (CLARITIN) 10 MG tablet TK 1 T PO QD 10 8 Active omeprazole (PRILOSEC) 40 MG capsule omeprazole 40 mg capsule,delayed release Active acyclovir (ZOVIRAX) 400 MG tablet 8 Active amLODIPine (NORVASC) 5 MG tablet 0 Active acyclovir (ZOVIRAX) 5 % ointment 0 Active Active Problems Problem Noted Date Diagnosed Date Arthritis of right subtalar joint 05/08/2020 Flat foot 05/08/2020 Pain in right ankle 12/01/2017 Other chronic pain 12/01/2017 Onychia of toe 05/01/2016 Plantar fasciitis 05/01/2016 Chronic pain of right ankle Acute postoperative pain of foot, right Social History Tobacco Use Types Packs/Day Years Used Date Smoking Tobacco: Never Smokeless Tobacco: Never Alcohol Use Standard Drinks/Week Comments No 0 (1 standard drink = 0.6 oz pur e alcohol) Comments No Sex and Gender Information Value Date Recorded Sex Assigned at Not on file 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 Gender Identity Not on file Sexual Orientation Not on file Last Filed Vital Signs Vital Sign Reading Time Taken Comments Blood Pressure 105/77 04/15/2018 2:30 AM CDT Pulse 75 04/15/2018 12:54 AM CDT Temperature 37.3 C (99.2 F) 04/15/2018 12:54 AM CDT Respiratory Rate 20 04/15/2018 12:54 AM CDT Oxygen Saturation 100% 04/15/2018 3:01 AM CDT Inhaled Oxygen Concentration - - Weight 158.8 kg (350 lb) 01/10/2020 12:18 PM CDT Height 166.4 cm (5' 5.5 ) 01/10/2020 12:18 PM CD T Body Mass Index 57.36 01/10/2020 12:18 PM CDT Plan of Treatment Health Maintenance Due Date Last Done Comments COLOGUARD (AGES 45-75) - COL ON CA SCREENING 1963 COLON MONITORING 1963 COLONOSCOPY - COLON CA SCREENING 1963 CT COLONOGRAPHY - COLON CA SCREENING 1963 Colorectal Cancer Screening 1963 FIT - COLON CA SCREENING 1963 FLEX SIG - COLON CA SCREENING 1963 MAMMOGRAM 1963 HIV SCREENING 1978 HEPATITIS C SCREENING 05/14/1981 DTAP/TDAP/TD VACCINES (1 - Tdap) 1982 PNEUMOCOCCAL VACCINE 50+ (1 of 1 - PCV) 2013 ZOSTER VACCINE (1 of 2) 2013 SCREENING FOR DIABETES 03/29/2021 03/29/2018 COVID-19 VACCINE (1 - 2023-2 5 season) 2024 DEPRESSION SCREENING 08/28/2024 LIPID TESTING 04/10/2025 04/10/2020 INFLUENZA VACCINE (Season Ended) 2025 06/11/20 16 Respiratory Syncytial Virus (RSV) Vaccine Pt: or over 60 yrs (1 - 1-dose 75+ series) 2038 HEPATITIS B VACCINE Aged Out No longe r eligible based on patient's age to complete this topic HIB VACCINE Aged Out No longer eligi ble based on patient's age to complete this topic HPV VACCINE Aged Out No longer eligi ble based on patient's age to complete this topic MENINGOCOCCAL (Group B) VACC INE SHARED DECISION-MAKING Aged Out No longer eligibl e based on patient's age to complete this topic MENINGOCOCCAL GROUPS A/C/Y/W VACCINE Aged Out No longer eligible b ased on patient's age to complete this topic Procedures Procedure Name Priority Date/Time Associated Diagnosis Comments BASIC METABOLIC PANEL (CALCIUM TOTAL) Routine 03/29/2018 12:34 PM CDT Pre-op evaluation Chronic pain of right ankle from Last 3 Months or Most Recently Relevant to Health Maintenance Results * (ABNORMAL) BASIC METABOLIC PANEL (CALCIUM TOTAL) (03/29/2018 12:34 PM CDT) BUN 12 7 - 26 mg/dL 03/29/2018 2:23 PM CDT [facility] Creatinine 0.6 0.6 - 1.2 mg/dL 03/29/2018 2:23 PM CDT [facility] Sodium 138 136 - 145 mmol/L 03/29/2018 2:23 PM CDT [facility] Potassium 3.7 3.5 - 4.5 mmol/L 03/29/2018 2:23 PM [facility] Chloride 104 98 - 107 mmol/L 03/29/2018 2:23 PM T [facility] CO2 28 22 - 29 mmol/L 03/29/2018 2:23 PM T [facility] Glucose 123(H) 70 - 115 mg/dL 03/29/2018 2:23 PM [facility] Calcium 9.2 8.4 - 10.2 mg/dL 03/29/2018 2:23 PM T [facility] Anion Gap 10 8 - 18 03/29/2018 2:23 PM [facility] BUN/Creatinine Ratio 20 7 - 23 03/29/2018 2:23 PM [facility] Osmolality Calculated 287 270 - 300 mOsm/kg 03/29/2018 2:23 PM [facility] eGFR >60 >60 mL/min/1.7 3 m2 03/29/2018 2:23 PM [facility] Blood BLOOD SPECIMEN / Unknown Lab Venipuncture / Unknown 03/29/2018 12:34 PM CDT 03/29/2018 1:42 PM T Smiley [facility] MEDIA OPERATOR-LOG HANDL[facility] - CHEMISTRY O RDERABLES Final Result [address] [phone] from Last 3 Months or Most Recently Relevant to Health Maintenance Insurance ANTHEM ANTHEM MEDICAID - OUT OF STATE ANTHEM ANTHEM Care Teams Bell Clerk Relationship Specialty Start Date End Date Shree Negrete MD [address] [place] [address] PCP - General Family Medicine 11/30/17
--- OUTSIDE RECORDS SUMMARY | 2025-01-09 14:15 | XMS_ITS | Encounter Summary ---
Author Organization [facility] Health Address [address] [place] [address] Care Team Providers Care Cream Buyer Name Role Phone Shree Negrete MD Primary Care Provider Reason for Visit * Reason Onset Date Comments Question 03/18/2021 Encounter Details Date Type Department Care Team (Late st Contact Info) Description 03/18/2021 Telephone [facility] [address] [place] [address] Jacob Johnson, DO [address] [place] [address] Question Social History Tobacco Use Types Packs/Day Years Used Date Smoking Tobacco: Never Smokeless Tobacco: Never Alcohol Use Standard Drinks/Week Comments No 0 (1 standard drink = 0.6 oz pur e alcohol) Comments No Sex and Gender Information Value Date Recorded Sex Assigned at Not on file 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 Johnson can refer her to a doctor who will do the laser disc surgery in her back CB# [phone] documented in this encounter Plan of Treatment Not on file documented as of this encounter Visit Diagnoses Not on filedocumented in this encounter Care Teams Cream Buyer Relationship Specialty Start Date End Date Shree Negrete MD [address] [place] [address] PCP - General Family Medicine 11/30/17 documented as of this encounter
--- OUTSIDE RECORDS SUMMARY | 2025-01-09 14:16 | XMS_ITS | Patient Health Record ---
Author Organization 1 OF [facility] Address [address] [address] [place] [address] Care Team Providers Care Mallet And Die Cutter Name Role Phone UNKNOWN, UNKNOWN Primary Care Provider Unavailab Carlota Gamez Unavailable [phone] Allergies Allergen (clinical drug ingredient) Drug/Non Drug Allergy documented on EMR Reaction Allergy Type Onset Date Status aspirin Aspirin Unknown Drug Allergy Active codeine Codeine Unknown Drug Allergy Active Results Component Value Reference Range Notes TATI w/ ultrasound arterial d uplex Reviewed date:04/02/2024 02:10:09 PM Interpretation:testing not done, pt not returning calls Performing Lab: Notes/Report: testing not done, pt not returning calls Limb Length Study Reviewed date:04/02/2024 02:09:47 PM Interpretation:testing not done, pt not returning calls Performing Lab: Notes/Report: testing not done, pt not returning calls Reason For Referral No Information Medications Medication SIG (Take, Route, Fr equency, Duration) Notes Start Date End Date Status Spironolactone Activ e Potassium Chloride A ctive Furosemide Active Omeprazole Active Olmesartan Medoxomil Active Claritin Active Atorvastatin Calcium Active Social History Tobacco Use: Social History Observation Description Date Details (start date - stop date) Never Smoker NA - NA Tobacco Use/Smoking Question Answer Notes Are you a nonsmoker Problems Problem Type SNOMED Code ICD Code Onset Dates Problem Status W/U Status Risk Notes Problem 73737686 Type 2 diabetes mellitus with other circulatory complications (E11.59) Active confirmed Problem 119281027 Type 2 diabetes mellitus with other diabetic neurological complication (E11.49) Active confirmed Problem 416617208622986 Acquired unequal limb length (M21.70) Active confirmed Problem 330053346 Type 2 diabetes mellitus without complication, without long-term current use of insulin (E11.9) Active confirmed Encounters Encounter Location Date Provider Diagnosis 1 OF [facility] [address] [place] [address] 01/29/2024 Carlota Victor Type 2 diabetes mellitus with other circulatory complications E11.59 ; Type 2 diabetes mellitus with other diabetic neurological complication E11.49 and Acquired unequal limb length M21.70 1 OF [facility] [address] [place] [address] 01/29/2024 Carlota Victor 1 OF [facility] [address] [place] [address] 01/29/2024 Carlota Victor Assessments Encounter Date Diagnosis (ICD Code) Assessment Notes Treatment Notes Treatment Clinical Notes Section Notes 01/29/2024 Type 2 diabetes mellitus with other circulatory complications (ICD-10 - E11.59) I recommended getting an TATI to evaluate the lower extremity blood flow in both legs. 01/29/2024 Type 2 diabetes mellitus with other diabetic neurological complication (ICD-10 - E11.49) 01/29/2024 Acquired unequal limb length (ICD-10 - M21.70) Evaluation today included a review of medical history, review of systems, discussion of exam findings, and review of diagnoses and treatment options. I discussed signs and symptoms of neuropathy. I discussed that some of her neuropathy could be from her lower back. I also discussed that some of it could be due to a radiculopathy. She does have one leg that is longer than the other and I discussed using a heel lift on the shorter side. I recommended getting a limb length study to know the exact difference between the 2 lower extremities.I discussed potential topical and oral treatment options for nerve pain. She has tried treatments in the past. She would like to get the limb length study done. Plan Of Treatment No Information Insurance Providers Payer Name Payer Address Payer Phone Subscriber Number Group Number Insured Name Patient Relationship to Insured Coverage Start Date Coverage End Date [facility] [employer] [address] [address] [place], [place] [id number] Carin Haque Self - patient is the insured Medical (General) History Medical History History ICD Code arthritis, diabetes, high cholesterol, h igh blood pressure, vein problems Surgical History Surgery Date(Month/Year) RT ankle surgery for gait--is unsure wha t is was 03/2018 RT hallux nail removal 2016 Back fusion
--- OUTSIDE RECORDS SUMMARY | 2025-01-09 14:16 | XMS_ITS | Encounter Summary ---
Author Organization [facility] Address [address] [place] [address] Care Team Providers Care Press Operator Helper Name Role Phone Shree Negrete MD Primary Care Provider Reason for Visit * Reason Onset Date Comments Lower Extremity Problem 08/22/2018 rt foot Encounter Details Date Type Department Care Team (Late st Contact Info) Description 08/22/2018 Telephone [facility] [address] [place] [address] Jacob Johnson, DO [address] [facility] [address] [place] [id number] Lower Extremity Problem (rt foot) Social History Tobacco Use Types Packs/Day Years Used Date Smoking Tobacco: Never Smokeless Tobacco: Never Alcohol Use Standard Drinks/Week Comments No 0 (1 standard drink = 0.6 oz pur e alcohol) Comments No Sex and Gender Information Value Date Recorded Sex Assigned at Not on file Legal Sex Female 7:46 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 She stated that pain causes her to fall and loose balance. She doesn't want pain meds, but would like to know if she should have more PT or DME brace to help her to function and work. I called pt back and l/m with request to call me back. PUNCHER documented in this encounter Plan of Treatment Not on file documented as of this encounter Visit Diagnoses Not on filedocumented in this encounter Care Teams Press Operator Helper Relationship Specialty Start Date End Date Shree Negrete MD [address] [place] [address] PCP - General Family Medicine 11/30/17 documented as of this encounter
--- OUTSIDE RECORDS SUMMARY | 2025-01-09 14:16 | XMS_ITS | Clinical Summary ---
Author Organization [facility] Address [address] [place] [address] Care Team Providers Care Emt Name Role Phone Cruz Ybarra MD Primary Care Provider [phone] Allergies Active Allergy Reactions Criticality Noted Date Comments Amlodipine Swelling Medium 03/05/2020 Lisinopril Cough Low 10/18/2019 Losartan Other (See Comments) Low 10/18/2019 Severe back pain Severe back pain but patient takes anyway Medications Blood-Glucose Meter (OneTouch Ultra2 Meter) KitIndications:Pr ediabetes Use as directed 1 Each 022 Active spironolactone (ALDACTONE) 25 mg tablet Take 25 mg by mouth daily. 023 Active metOLazone (ZAROXOLYN) 2.5 mg tablet 1 time daily as needed. 023 Active blood sugar diagnostic StripIndications: Type 2 diabetes mellitus with hyperglycemia, without long-term current use of insulin ([facility]) Use one strip daily to test blood sugar 100 Strip 3 023 Active Insulin Ashley, Disposable, (BD Ultra-Fine Short Pen Needle) 31 gauge x 5/16 NeedleIndications :Type 2 diabetes mellitus with hyperglycemia, without long-term current use of insulin ([facility]) Use with insulin pen. 90 Each 1 023 Active albuterol sulfate HFA 90 mcg/actuation aerosol inhalerIndication s:PANDA (dyspnea on exertion) Take 2 Puffs by inhalation every 6 hours as needed for Shortness of Breath. 8.5 Gram 5 024 Active omeprazole (PriLOSEC) 20 mg Capsule, Delayed Release(E.C.)María cations:Gastroeso phageal reflux disease without esophagitis Take 1 Capsule (20 mg) by mouth daily. FOR ACID REFLUX 90 Capsule 3 024 Active potassium chloride (K-TAB) 20 mEq Extended Release tabletIndications :Essential hypertension Take 1 Tablet (20 mEq) by mouth daily with breakfast. 90 Tablet 3 024 Active acetaminophen (TYLENOL ARTHRITIS) 650 mg Extended Release tablet Take 650 mg by mouth every 6 hours as needed for Pain. Active furosemide (LASIX) 20 mg tabletIndications :Essential hypertension TAKE 1 TABLET(20 MG) BY MOUTH TWICE DAILY 180 Tablet 2 Active lancets (OneTouch Delica Plus Lancet) 30 gaugeIndications: Type 2 diabetes mellitus with hyperglycemia, without long-term current use of insulin ([facility]) USE TO TEST BLOOD SUGAR DAILY 100 Each 2 024 Active tirzepatide (Mounjaro) 10 mg/0.5 mL Pen InjectorIndicatio ns:Morbid obesity with BMI of 60.0-69.9, adult ([facility]),Type 2 diabetes mellitus with hyperglycemia, without long-term current use of insulin ([facility]) Inject 0.5 mL (10 mg) by subcutaneous injection every 7 days. 2 mL Active linaCLOtide (LINZESS) 290 mcg capsuleIndication s:Chronic idiopathic constipation Take 1 Capsule (290 mcg) by mouth daily before breakfast. FOR CONSTIPATION 30 Capsule Active loratadine (CLARITIN) 10 mg tabletIndications :Gastroesophageal reflux disease without esophagitis TAKE 1 TABLET BY MOUTH EVERY DAY. 90 Tablet 025 Active meloxicam (MOBIC) 15 mg tabletIndications :Primary osteoarthritis of both knees,Pain in both hands TAKE 1 TABLET(15 MG) BY MOUTH EVERY DAY NEEDED FOR PAIN 30 Tablet 3 025 Active Kristalose 20 gram Packet DISSOLVE 1 PACKET IN LIQUID AND TAKE BY MOUTH THREE TIMES DAILY NEEDED FOR BOWEL MOVEMENT EVERY 2 DAYS MAXIMUM Active acyclovir (ZOVIRAX) 5 % Ointment Apply to affected area every 4 hours. For cold sores 15 Gram 5 025 Active valACYclovir (VALTREX) 1 gram tabletIndications :H/O cold sores Take 1 Tablet (1 Gram) by mouth daily. TAKE 1 TABLET BY MOUTH TWICE DAILY NEEDED Strength: 1 Gram 100 Tablet 3 025 Active olmesartan (BENICAR) 5 mg tabletIndications :Essential hypertension Take 2 Tablets (10 mg) by mouth daily. 180 Tablet 3 025 Active empagliflozin (Jardiance) 10 mg tablet Take 1 Tablet (10 mg) by mouth daily in the morning. 100 Tablet 3 025 Active acyclovir (ZOVIRAX) 5 % Ointment Apply to affected area every 4 hours. For cold sores 15 Gram 1 020 2024 Discontinued tiZANidine (ZANAFLEX) 4 mg TabletIndications :Cervical radiculopathy Take 1 Tablet (4 mg) by mouth every 6 hours as needed for Spasm. 20 Tablet 022 2024 Discontinued valACYclovir (VALTREX) 1 gram tabletIndications :H/O cold sores TAKE 1 TABLET BY MOUTH TWICE DAILY NEEDED Strength: 1 Gram 60 Tablet 11 022 2024 Discontinued(R eorder) ketoconazole (NIZORAL) 2 % Cream APPLY 1 APPLICATION TOPICALLY TO THE AFFECTED AREA ON BOTTOM OF FEET ONCE DAILY 023 2024 Discontinued olmesartan (BENICAR) 5 mg tabletIndications :Essential hypertension take 2 tablets by mouth daily 180 Tablet 3 024 2024 Discontinued(R eorder) empagliflozin (Jardiance) 10 mg tablet Take 1 Tablet (10 mg) by mouth daily in the morning. 90 Tablet 3 024 2024 Discontinued(R eorder) diclofenac sodium (Voltaren) 1 % gel APPLY 2 GRAM TO THE AFFECTED AREA(S) BY TOPICAL ROUTE UP TO 4 TIMES PER DAY NEEDED 2024 Discontinued tirzepatide (Mounjaro) 7.5 mg/0.5 mL Pen Injector Inject 0.5 mL (7.5 mg) by subcutaneous injection every 7 days. 6 mL 3 024 2024 Discontinued peg 3350-electrolytes (COLYTE) 240-22.72-6.72 -5.84 gram solution Take 4,000 mL by mouth one time only for 1 dose. Do NOT follow the medical van driver label instructions- use the ones emailed/message d to you from your physician. 4000 mL 025 2024 Active Problems Patient Care Coordination No te Formatting of this note migh t be different from the original. CARDIO->DR NOREEN BLOUNT->DR SANZ->DR RUELAS DM->ENDO ARR GI->DR MITCHELL NEURO->DR [place] Problem Noted Date Diagnosed Date History of colon polyps 12/16/2024 Overview (12/16/2024): 03/16 CSCOPE->POLYPS->NEXT 03/21 Bilateral carotid artery stenosis 05/06/2024 Memory disorder 01/29/2024 Overview (02/28/2024): 03/20 MRI BRAIN NL PANDA (dyspnea on exertion) 01/29/2024 Idiopathic body fluid retention 01/02/2023 Fatty liver 01/02/2023 Hx of low back pain 01/10/2022 Obstructive sleep apnea 12/11/2020 Overview (05/13/2024): 12/14/2010 SLEEP STUDY RECORDS FROM [facility] SCANNED->ANTONIA->CPAP STARTED 05/21 RECORDS FROM [facility] SCANNED INTO EPIC Right arm pain 12/11/2020 Overview (12/24/2020): 12/16 MRI CSPINE->Right paracentral herniation C5-6.->ARR NSURG Primary osteoarthritis involving multiple joints 06/12/2020 Palpitations 03/23/2020 Overview (08/03/2021): 03/16 holter per cardio 08/17 ECHO PER CARDIO Chronic idiopathic constipation 02/22/2017 Chronic pain of both knees 02/22/2017 Overview (02/22/2017): 02/11 ARR XRAYS, ORTHO 02/11 BILATERAL KNEE XRAYS->Bilateral medial compartment osteoarthritis H/O cold sores 10/03/2016 Venous insufficiency 09/17/2015 Overview (09/17/2015): 09/12 BLE VBFS->No evidence of deep or superficial vein thrombosis involving the bilateral lower extremities Hx of coagulation disorder 09/14/2015 Overview (09/14/2015): 09/12 ? DETAILS->DECLINED HEME OPINION AT THIS TIME Hx of keloid of skin 09/14/2015 Gastroesophageal reflux disease without esophagi tis 09/14/2015 Overview (04/26/2017): 04/13 HIDA SCAN NL Morbid obesity with BMI of 60.0-69.9, adult 08/28 Essential hypertension 09/07/2015 Bilateral low back pain without sciatica 016 Hyperlipidemia LDL goal <100 09/07/2015 Overview (12/13/2024): 09/12 [id number]->START ATORV 20 02/16 [id number]->The 10-year ASCVD risk score (Arbon MAGGIE Jr., et al., 2013) is: 6.9%->ON NO RX 01/17 RESTART ATORV 20 05/21 STOPPED ATORV D/T MUSCLE ACHES 12/20 The 10-year ASCVD risk score (Iona SIMMONS, et al., 2019) is: 9.4%->MINH Type 2 diabetes mellitus wit h hyperglycemia, without long-term current use of insulin 09/07/2015 Overview (12/13/2024): A1C -- 09/12 6.2 -- 03/16 6.7 -- 02/16 7.2->REC D/E AND 6 MOS F/UP -- 04/19 >9 (HOSP) -- 05/21 6.9 -- 12/20 6.3 Screen for colon cancer 09/07/2015 Overview (06/12/2020): 2008 CSCOPE REPORTEDLY NL->09/12 [facility]Q [facility] REC[facility]DS 10/25/07 CSCOPE (CLINES) NL->NEXT 10/15 03/16 CSCOPE->PLASTIC->NEXT 03/21? Resolved Problems Problem Noted Date Diagnosed Date Resolved Date Right foot pain 01/10/2022 01/02/2023 Pain in both hands 01/10/2022 2018 novel coronavirus disease (COVID-19) 04/26/2021 01/10/2022 Perimenopausal 06/12/2020 01/02/2023 Primary osteoarthritis of left knee 05/02/2017 06/12/2020 Primary osteoarthritis of right knee 04/04/2017 06/12/2020 Primary osteoarthritis of left ankle 04/04/2017 06/12/2020 Other chest pain 10/07/2015 06/12/2020 Overview (04/08/2020): 06/02/15 [facility] ER RECORDS 04/08/20 [facility] REC[facility] RECEIVED/SCANNED Pain in both feet 09/14/2015 06/12/2020 Overview (09/14/2015): 09/12 ARR DPM Left arm pain 09/14/2015 06/12/2020 Overview (09/17/2015): 09/12 ARR D DIMER AT PT REQ 09/12 D DIMER (NL <0.41) -- 0.72->DOUBT DVT BUT ARR LUE VBFS / PT DECLINES ER 09/12 BUE VBFS->No evidence of deep or superficial vein thrombosis involving the veins of the right upper extremity and veins of the left upper extremity Elevated d-dimer 09/14/2015 01/02/2023 Overview (09/17/2015): 09/12 D DIMER (NL <0.41) -- 0.72->DOUBT DVT BUT ARR VBFS OF EXTs / PT DECLINES ER 09/12 BUE VBFS->No evidence of deep or superficial vein thrombosis involving the veins of the right upper extremity and veins of the left upper extremity 09/12 BLE VBFS->No evidence of deep or superficial vein thrombosis involving the bilateral lower extremities Visit for gynecologic examination 09/07/2015 06/12/2020 Anemia, chronic disease 09/07/201505/28 Overview (09/14/2015): HB -- 09/12 10.8->PT STATES CHRONIC--DECLINES FE OR FURTHER EVAL AT THIS TIME MCV -- 09/12 79.6 09/12 B12 NL (1045) Subclinical hypothyroidism 09/07/2015 0 02/22/2017 Overview (09/07/2015): 09/12 TSH 4.38 Encounters Date Type Department Care Team Description 12/26/2024 Abstract [facility] [address] [place] [address] [place] [address] Yves Mitchell MD 12/24/2024 2:20 PM CDT Office Visit [facility] [address] [facility] [address] [place] [phone] Yves Mitchell MD Gastroesophageal reflux disease, unspecified whether esophagitis present (Primary Dx); Constipation, unspecified constipation type; Epigastric abdominal pain 12/16/2024 4:20 PM CDT Office Visit [facility] Primary Care [facility] [address] [facility] [address] [place] [address] Cruz Ybarra MD [facility] health care (Primary Dx); Type 2 diabetes mellitus with hyperglycemia, without long-term current use of insulin ([facility]); Morbid obesity with BMI of 60.0-69.9, adult ([facility]); Primary osteoarthritis involving multiple joints; Obstructive sleep apnea; Hyperlipidemia LDL goal <100; Gastroesophageal reflux disease without esophagitis; Essential hypertension; Chronic idiopathic constipation; History of colon polyps; Ganglion cyst of finger; H/O cold sores 12/11/2024 Abstract [facility] Internal Medicine [facility] [address] [address] [facility] [address] [place] [phone] Cruz Ybarra MD 11/04/2024 External Device Data STL ABSTRACTION Provider, Abstract 11/02/2024 External Device Data [facility] ABSTRACTION Provider, Abstract 11/01/2024 External Device Data ST[facility] ABSTRACTION Provider, Abstract 10/22/2024 External Device Data STL ABSTRACTION Provider, Abstract from Last 3 Months Immunizations Immunization Administration Dates Next Due (ADACEL/BOOSTRIX)(10 YR UP) TDAP VACCINE, 0.5ML, IM 07/07/2023 INFLUENZA VACCINE QUADRIVALE NT 6 MOS UP CELL DERIVED PF IM 07/25/2022 INFLUENZA VACCINE QUADRIVALE NT 6 MOS UP PF IM 07/07/2023,06/10/2021,06/12/2020 INFLUENZA VACCINE TRIVALENT SPLIT VIRUS, (6 MOS UP), 0.5ML (PF), IM 05/06/2024 05/06/2025 Influenza Seasonal Unspecifi ed Formulation IM 07/07/2023,06/11/2016 Family History Medical History Relation Name Comments Heart Failure Brother 4 Cancer Father Prostate Breast Cancer Maternal Aunt 90s High Cholesterol Mother Hypertension Mother Stroke Mother Heart Failure Sister 7 Colon Cancer Neg Hx Fuchs' dystrophy Neg Hx Glaucoma Neg Hx Macular Degen Neg Hx Ovarian Cancer Neg Hx Relation Name Status Comments Brother 1 Alive Brother 2 Alive Brother 3 Alive Brother 4 Father Maternal Aunt Maternal Grandfather Maternal Grandmother Mother Paternal Grandfather Paternal Grandmother Sister 1 Alive Sister 2 Alive Sister 3 Alive Sister 4 Alive Sister 5 Alive Sister 6 Alive Sister 7 Social History Tobacco Use Types Packs/Day Years Used Date Smoking Tobacco: Never Passive Smoke Exposure: Never Smokeless Tobacco: Never Tobacco Cessation:Counseling Given: Not Answered Alcohol Use Standard Drinks/Week Comments No 0 (1 standard drink = 0.6 oz pur e alcohol) Comments No Sex and Gender Information Value Date Recorded Sex Assigned at Not on file Legal Sex Female 1:46 PM FAMILY WORKER Gender Identity Not on file Sexual Orientation Not on file Last Filed Vital Signs Vital Sign Reading Time Taken Comments Blood Pressure 158/79 12/24/2024 2:25 PM CDT Pulse 73 12/24/2024 2:25 PM CDT Temperature 36.4 C (97.6 F) 01/29/2024 3:41 PM CDT Respiratory Rate 19 01/29/2024 3:41 PM CDT Oxygen Saturation 92% 12/16/2024 4:31 PM CDT Inhaled Oxygen Concentration - - Weight 150.1 kg (331 lb) 12/26/2024 8:42 AM CDT Height 165.1 cm (5' 5 ) 12/26/2024 8:42 AM CDT Body Mass Index 55.08 12/26/2024 8:42 AM CDT Plan of Treatment Upcoming Encounters Date Type Department Care Team (Latest Contact Info) Description 5 8:20 AM CDT Hospital Encounter [facility] [address] [facility] [address] [place] [address] Yves Mitchell MD [address] [facility] [address] [place] [address] Gastroesophageal reflux disease, unspecified whether esophagitis present 5 8:20 AM CDT - 5 9:00 AM CDT Surgery [facility] [address] [place] [address] Yves Mitchell MD [address] [facility] [address] [place] [address] ESOPHAGOGASTRODUODENOSCOPY 5 2:45 PM CDT Office Visit [facility] - [facility] [address] - Ophthalmology [address] [facility] [place] [address] [place] [address] Amy Mcmillan, OD [address] [facility] [place] [address] [place] [address] 5 9:20 AM CDT Office Visit [facility] Primary Care [facility] [address] [facility] [place] [address] [place] [address] [place] [address] [address] 6 9:00 AM FAMILY WORKER Office Visit [facility] Neurology [facility] [address] [facility] [address] [place] [address] [place] [address] [place] [address] [facility] [address] [place] [address] Sheryl [place] MD [address] [facility] [address] [place] [address] [place] [address] 6 2:00 PM FAMILY WORKER Office Visit [facility] [place] [address] [address] [place] [address] [place] [address] Yves Mitchell MD [address] [facility] [address] [place] [address] Scheduled Procedures Name Priority Associated Diagnoses Date/Ti me ESOPHAGOGASTRODUODENOSCOPY Gastroesophageal reflux disease, unspecified whether esophagitis present Epigastric pain Colon cancer screening 01/14/2025 8:20 AM CDT COLONOSCOPY Gastroesophageal reflux disease, unspecified whether esophagitis present Epigastric pain Colon cancer screening 01/14/2025 8:20 AM CDT Health Maintenance Due Date Last Done Comments FIT-DNA Q 3 years 2008 FIT/FOBT Q 1 year 2008 Flex Sig/CT Colonography Q 5 years 2008 ZOSTER VACCINE (1 of 2) 2013 RSV VACCINE (60+ or ) (1 - Risk 60-74 years 1-dose series) 2023 BREAST CANCER SCREENING 10/20/2023 10/20/19, 01/13/2022, 01/13/2022, Additional history exists COLORECTAL SCREENING 03/12/2025 03/12/2020, 03/12/2020, 10/25/2007, Additional history exists Colorectal Cancer Screening 03/12/2025 Pre-Diabetes and Diabetes Screening 12/12/2027 12/11/2024, 05/06/2024, 02/06/2023, Additional history exists DTAP/TDAP/TD VACCINES (2 - T d or Tdap) 07/07/2033 07/07/2023 INFLUENZA VACCINE Completed 05/06/2024, , 07/07/2023, Additional history exists Preventative Visit- Commercial Completed 0 12/16/2024, 10/16/2023, 01/02/2023, Additional history exists Procedures Procedure Name Priority Date/Time Associated Diagnosis Comments MICROALBUMIN/CREATININ E RATIO, RANDOM UR Routine 12/11/2024 8:39 AM CDT Type 2 diabetes mellitus with hyperglycemia, without long-term current use of insulin ([facility]) HEMOGLOBIN A1C Routine 12/11/2024 8:36 AM CDT Type 2 diabetes mellitus with hyperglycemia, without long-term current use of insulin ([facility]) TSH Routine 12/11/2024 8:31 AM CDT Hyperlipidemia LDL goal <100 LIPID PANEL Routine 12/11/2024 8:31 AM CDT Hyperlipidemia LDL goal <100 COMPREHENSIVE METABOLIC PANEL Routine 12/11/2024 8:31 AM CDT Type 2 diabetes mellitus with hyperglycemia, without long-term current use of insulin ([facility]) CKD (chronic kidney disease) stage 2, GFR 60-89 ml/min CBC WITHOUT DIFFERENTIAL Routine 12/11/2024 8:31 AM CDT CKD (chronic kidney disease) stage 2, GFR 60-89 ml/min MAMMO SCREENING BILAT Routine 10/20/2022 COLONOSCOPY REPORT 03/12/2020 11 :35 AM CDT from Last 3 Months or Most Recently Relevant to Health Maintenance Results * MICROALBUMIN/CREATININE RATIO, RANDOM UR (12/11/2024 8:39 AM CDT) CREATININE, URINE 39 20 - 275 mg/dL [facility] ALBUMIN, URINE <0.2 See Note: mg/dL [facility] Comment: Reference Range: Reference Range Not established ALB/CREAT RATIO, URINE NOTE <30 mg/g creat [facility] Comment: NOTE: The urine albumin value is less than 0.2 mg/dL therefore we are unable to calculate excretion and/or creatinine ratio. The ADA defines abnormalities in albumin excretion as follows: Albuminuria Category Result (mg/g creatinine) Normal to Mildly increased <30 Moderately increased 30-299 Severely increased > OR = 300 The ADA recommends that at least two of three specimens collected within a 3-6 month period be abnormal before considering a patient to be within a diagnostic category. FASTING:YES FASTING: YES Test Performed at: [facility] [address] [facility] [place] [address] Tripp Henriquez MD Urine URINE SPECIMEN OBTAINED BY CLEAN CATCH PROCEDURE / Unknown 12/11/2024 8:39 AM CDT 12/11/2024 8:41 AM CDT Cruz Ybarra MD URINE ORDERABLES Final Result [facility] [phone] [facility] [address] [place] [address] * (ABNORMAL) HEMOGLOBIN A1C (12/11/2024 8:36 AM CDT) HEMOGLOBIN A1C 6.3(H) <5.7 % of total Hgb [facility] Comment: For someone without known diabetes, a hemoglobin A1c value between 5.7% and 6.4% is consistent with prediabetes and should be confirmed with a follow-up test. For someone with known diabetes, a value <7% indicates that their diabetes is well controlled. A1c targets should be individualized based on duration of diabetes, age, comorbid conditions, and other considerations. This assay result is consistent with an increased risk of diabetes. Currently, no consensus exists regarding use of hemoglobin A1c for diagnosis of diabetes for children. ESTIMATED AVERAGE GLUCOSE (MG/DL) 134 mg/dL [facility] ESTIMATED AVERAGE GLUCOSE (MMOL/L) 7.4 mmol/L [facility] Comment: FASTING:YES FASTING: YES Test Performed at: [facility] [address] [place] [address] Tripp Henriquez Blood 12/11/2024 8:36 AM CDT 12/11/2024 8:38 AM CDT Cruz Ybarra MD CHEMISTRY ORDERABLES Final Re sult [facility] [phone] [facility] [address] [place] [address] * CBC WITHOUT DIFFERENTIAL (12/11/2024 8:31 AM CDT) WBC 6.2 3.8 - 10.8 Thousand/u L [facility] RBC 4.78 3.80 - 5.10 Million/uL [facility] HEMOGLOBIN 13.2 11.7 - 15.5 g/dL [facility] HEMATOCRIT 40.8 35.0 - 45.0 % [facility] MCV 85.4 80.0 - 100.0 fL [facility] MCH 27.6 27.0 - 33.0 pg [facility] MCHC 32.4 32.0 - 36.0 g/dL [facility] Comment: For adults, a slight decrease in the calculated MCHC value (in the range of 30 to 32 g/dL) is most likely not clinically significant; however, it should be interpreted with caution in correlation with other red cell parameters and the patient's clinical condition. RDW 14.5 11.0 - 15.0 % [facility] PLATELETS 219 140 - 400 Thousand/u L [facility] MPV 11.0 7.5 - 12.5 fL [facility] Comment: FASTING:YES FASTING: YES Test Performed at: [facility] [address] [place] [address] Tripp Henriquez MD Blood 12/11/2024 8:31 AM CDT 12/11/2024 8:34 AM CDT Cruz Ybarra MD HEMATOLOGY ORDERABLES Final R esult [facility] [phone] [facility] [address] [phone] * TSH (12/11/2024 8:31 AM CDT) Pathologist [facility] TSH 3.69 0.40 - 4.50 mIU/L [facility] Comment: FASTING:YES FASTING: YES Test Performed at: [facility] [place] [place] [address] Tripp Henriquez MD Blood 12/11/2024 8:31 AM CDT 12/11/2024 8:34 AM CDT us Cruz Ybarra MD CHEMISTRY ORDERABLES Final Re sult [facility] [phone] [facility] [address] * (ABNORMAL) LIPID PANEL (12/11/2024 8:31 AM CDT) [facility] CHOLESTEROL 238(H) <200 mg/dL [facility] HDL 53 > OR = 50 mg/dL [facility] TRIGLYCERIDE 112 <150 mg/dL [facility] LDL CALCULATED 162(H) mg/dL (calc) [facility] Comment: Reference range: <100 Desirable range <100 mg/dL for primary prevention; <70 mg/dL for patients with CHD or diabetic patients with > or = 2 CHD risk factors. LDL-C is now calculated using the Zak-Lea calculation, which is a validated novel method providing better accuracy than the Friedewald equation in the estimation of LDL-C. Zak ORTEGA et al. NAVNEET. 2013;310(19): 9564-5244 (http://education.[employer]/faq/SLV775) CHOL/HDL RATIO 4.5 <5.0 (calc) [facility] NON-HDL CHOLESTEROL 185(H) <130 mg/dL (calc) [facility] Comment: For patients with diabetes plus 1 major ASCVD risk factor, treating to a non-HDL-C goal of <100 mg/dL (LDL-C of <70 mg/dL) is considered a therapeutic option. Test Performed at: [facility] [address] [place] [address] Tripp Henriquez MD Blood 12/11/2024 8:31 AM CDT 12/11/2024 8:34 AM CDT us Cruz Ybarra MD CHEMISTRY ORDERABLES Final Re sult [facility] [phone] [facility] [address] [place] [phone] * COMPREHENSIVE METABOLIC PANEL (12/11/2024 8:31 AM CDT) GLUCOSE 99 65 - 99 mg/dL [facility] Comment: Fasting reference interval BUN 11 7 - 25 mg/dL [facility] CREATININE 0.76 0.50 - 1.05 mg/dL [facility] EGFR 89 > OR = 60 mL/min/1. 73m2 [facility] BUN/CREAT RATIO SEE NOTE: 6 - 22 (calc) [facility] Comment: Not Reported: BUN and Creatinine are within reference range. SODIUM 138 135 - 146 mmol/L [facility] POTASSIUM 4.4 3.5 - 5.3 mmol/L [facility] CHLORIDE 103 98 - 110 mmol/L [facility] CO2 31 20 - 32 mmol/L [facility] CALCIUM 9.2 8.6 - 10.4 mg/dL [facility] TOTAL PROTEIN 7.1 6.1 - 8.1 g/dL [facility] ALBUMIN 3.8 3.6 - 5.1 g/dL [facility] [facility] GLOBULIN 3.3 1.9 - 3.7 g/dL (calc) [facility] ALBUMIN/GLOBULIN RATIO 1.2 1.0 - 2.5 (calc) [facility] BILIRUBIN TOTAL 0.9 0.2 - 1.2 mg/dL [facility] ALKALINE PHOSPHATASE 96 37 - 153 U/L [facility] AST 15 10 - 35 U/L [facility] ALT 15 6 - 29 U/L [facility] Comment: FASTING:YES FASTING: YES Test Performed at: [facility] [address] [id number] Tripp Henriquez MD Blood 12/11/2024 8:31 AM CDT 12/11/2024 8:34 AM CDT us Cruz Ybarra MD CHEMISTRY ORDERABLES Final Re sult [facility] [phone] [facility] [address] [address] [id number]|2025-01-09 14:16:00|2025-01-09 14:15:00|XMS_ITS|BKG DAEMON|External Medical Summaries|[id number]|" Encounter Summary Created on: January 09, 2025 Carin Haque : 1965 Sex: Female Author Organization [facility] Address [address] [place] [address] Care Team Providers Care Emt Name Role Phone Cruz Ybarra MD Primary Care Provider Reason for Visit * Reason Onset Date Comments Call back 04/05/2023 Encounter Details Date Type Department Care Team (Late st Contact Info) Description 04/05/2023 Telephone [facility] Internal Medicine [address] [address] [place] [address] [facility] [address] [place], [place] [id number] Call back Social History Tobacco Use Types Packs/Day Years Used Date Smoking Tobacco: Never Passive Smoke Exposure: Never Smokeless Tobacco: Never Alcohol Use Standard Drinks/Week Comments No 0 (1 standard drink = 0.6 oz pur e alcohol) Comments No Sex and Gender Information Value Date Recorded Sex Assigned at Not on file Legal Sex Female 1:46 PM FAMILY WORKER Gender Identity Not on file Sexual Orientation Not on file documented as of this encounter Miscellaneous Notes * Telephone Encounter - David Davenport PCA - 04/13/2023 8:21 AM CDT [email or web address] * Telephone Encounter - Concepcion Valentine - 04/05/2023 1:25 PM CDT Provider: Cruz Ybarra MD Next office visit: Visit date not found Caller: Dr Arleth Sanz, Lion Trainer at [facility], [place], [place] Message: Dr Sanz called stating patient is requesting FMLA paperwork to be completed for return to work after her tonsillectomy at the end April. Dr Sanz does not normally complete FMLA paperwork, but did say if FMLA would be completed for pneumonia, it would be maximum of [address] Sanz was questioning patient's mental stability. Dr Sanz said she saw patient one time in [facility] admission in February 2023 due to multiple pulmonary issues. Dr Sanz said patient was re-admitted at end of February and discharge in April 03, 2023. Dr Sanz said patient's Hemoglobin A1C was 9+ and patient is refusing to take oral medication or insulin. She said patient wants to know what providers are going to do for her. Dr Sanz said she doesn't feel that patient is taking care of herself and said that diabetes needs to get under control before her tonsillectomy - this is root cause of her problems. Dr Foner asked that Dr Ybarra return her call to cell number Call-back Number: [phone] documented in this encounter Plan of Treatment Upcoming Encounters Date Type Department Care Team (Latest Contact Info) Description 5 8:20 AM CDT Hospital Encounter [facility] S [facility] [address] [place] [address] Yves Mitchell MD [address] [facility] [address] [place] [address] [phone] (Work) [phone] (Fax) Gastroesophageal reflux disease, unspecified whether esophagitis present 5 8:20 AM CDT - 5 9:00 AM CDT Surgery [facility] S [facility] [address] [place] [address] Yves Mitchell MD [address] [facility] [address] [place] [address] ESOPHAGOGASTRODUODENOSCOPY 5 2:45 PM CDT Office Visit [facility] - [facility] - Ophthalmology [address] [facility] [place] [address] [place] [address] Amy Mcmillan, OD [address] [facility] [place] [address] [place] [address] 5 9:20 AM CDT Office Visit [facility] Primary Care [facility] [address] [place] [place] [address] [place] [address] [address] 6 9:00 AM FAMILY WORKER Office Visit [facility] Neurology [facility] [address] [facility] [place] [address] [place] [address] [place] Y[place] [address] [facility] [address] [place] [address] Sheryl [place] MD [address] [facility] [place] [address] [place] [address] 6 2:00 PM FAMILY WORKER Office Visit [facility] Gastroenterology [place] [address] [facility] [place] [address] [place] [address] Yves Mitchell MD [address] [facility] [address] [place] [address] Scheduled Procedures Name Priority Associated Diagnoses Date/Ti me ESOPHAGOGASTRODUODENOSCOPY Gastroesophageal reflux disease, unspecified whether esophagitis present Epigastric pain Colon cancer screening 01/14/2025 8:20 AM CDT COLONOSCOPY Gastroesophageal reflux disease, unspecified whether esophagitis present Epigastric pain Colon cancer screening 01/14/2025 8:20 AM CDT documented as of this encounter Visit Diagnoses Not on filedocumented in this encounter Care Teams Emt Relationship Specialty Start Date End Date Cruz Ybarra MD PCP - General Internal Medicine 09/07/15 documented as of this encounter "
--- OUTSIDE RECORDS SUMMARY | 2025-01-09 14:16 | XMS_ITS | Encounter Summary ---
Author Organization [facility] Address [address] [place] [address] Care Team Providers Care Property Underwriter Name Role Phone Shree Negrete MD Primary Care Provider Reason for Visit * Reason Onset Date Comments Surgical Followup 04/12/2018 Encounter Details Date Type Department Care Team (Late st Contact Info) Description 04/12/2018 Telephone [facility] [address] [place] [address] Jacob Johnson, DO [address] [facility] [address] [place] [phone] Surgical Followup Social History Tobacco Use Types Packs/Day Years Used Date Smoking Tobacco: Never Smokeless Tobacco: Never Alcohol Use Standard Drinks/Week Comments No 0 (1 standard drink = 0.6 oz pur e alcohol) Comments No Sex and Gender Information Value Date Recorded Sex Assigned at Not on file Legal Sex Female 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 PT STATED SITE IS SWOLLEN, PUFFY AND LEAKING GREENISH FLUID. I TOLD HER I WOULD FOLLOW UP WITH HER SOON I HEAR BACK WITH FURTHER INSTRUCTIONS FROM PROVIDER OR NURSE. documented in this encounter Plan of Treatment Not on file documented as of this encounter Visit Diagnoses Not on filedocumented in this encounter Care Teams Property Underwriter Relationship Specialty Start Date End Date Shree Negrete MD [address] [place] [address] PCP - General Family Medicine 11/30/17 documented as of this encounter
--- OUTSIDE RECORDS SUMMARY | 2025-01-09 14:16 | XMS_ITS ---
Author Organization [facility] Address [address] [address] Care Team Providers Care Carrier Blower Name Role Phone UNKNOWN, UNKNOWN Primary Care Provider Unavailab Carlota Gamez Unavailable [phone] REASON FOR VISIT Monitor TATI 03/01 Encounters Encounter Location Date Provider Diagnosis [facility] [address] [facility] [address] [place] [address] 01/29/2024 Carlota Victor Plan Of Treatment No Information Progress Notes * Carin HAQUE DDOB: [birth year] (58 yo F)Acc No.[id number]:01/29/2024 Patient: Henrique GARDUNOCarin MCMILLAN :1965 A ge:58 Y S ex:Female Address:[address] [place] [address] * true * Date: Generated for Rosyi ng/Faziyadg/eTransmitting on: 0 01/09/2025 02:16 PM CDT
--- OUTSIDE RECORDS SUMMARY | 2025-01-09 14:16 | XMS_ITS | Encounter Summary ---
Author Organization [facility] Address [address] [place] [address] Care Team Providers Care Ski Binding Fitter And Repairer Name Role Phone Cruz Ybarra MD Primary Care Provider [phone] Reason for Visit * Reason Onset Date Comments Referral 06/29/2023 Encounter Details Date Type Department Care Team (Late st Contact Info) Description 06/29/2023 Telephone [facility] Internal Medicine [address] [address] Cruz Ybarra MD [address] [place] [address] Referral Social History Tobacco Use Types Packs/Day Years Used Date Smoking Tobacco: Never Passive Smoke Exposure: Never Smokeless Tobacco: Never Alcohol Use Standard Drinks/Week Comments No 0 (1 standard drink = 0.6 oz pur e alcohol) Comments No Sex and Gender Information Value Date Recorded Sex Assigned at Not on file Legal Sex Female 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 Spoke with patient. Patient would like ultrasound, due to previous mammogram findings. Reviewed last mammogram, was considered benign findings. Discussed that appointment would be needed. Patient states that she will address at upcoming appointment, on 07/10/2023. * Telephone Encounter - Joann Doe - 06/29/2023 2:20 PM CDT Referral Request Caller: Carin Haque Requests referral to: Ultrasound Reason for referral (Symptoms / Diagnosis): US on breast, same order as mammogram Previously discussed with provider? No Date of Next encounter: 07/10/2023 Date of Last encounter: 06/26/2023 Is patient requesting a certain provider or facility? No If yes, what is the provider's/facility name: Unknown Dates of Service: Unknown Provider / Facility contact information: Unknown Patient was advised they will get a call if there are any other questions, otherwise they will hearfrom the department they are requesting the referral from. Call back number: [phone] Home Phone Work Phone documented in this encounter Plan of Treatment Upcoming Encounters Date Type Department Care Team (Latest Contact Info) Description 8:20 AM CDT Hospital Encounter [facility] S [address] [address] Yevs Mitchell MD [address] [place] [phone] Gastroesophageal reflux disease, unspecified whether esophagitis present 5 8:20 AM CDT - 5 9:[address] [facility] S [address] [address] Yves Mitchell MD [address] [place] [address] ESOPHAGOGASTRODUODENOSCOPY 5 2:45 PM CDT Office Visit [facility] - [facility] [address] - Ophthalmology [address] [facility] [address] [place] [address] Dominiqueyolande Amy, ELICEO [address] [facility] [address] [place] [address] 5 9:20 AM CDT Office Visit [facility] Primary Care [facility] [address] [facility] [place] [address] [place] [address] [facility] [address] [place], [place] [phone] 6 9:00 AM DEPARTMENT ASSISTANT Office Visit [facility] [address] [facility] [address] [place] [address] [place] [address] [facility] [address] [place] [address] Sheryl Harley MD [address] [facility] [address] [place] [address] 6 2:00 PM DEPARTMENT ASSISTANT Office Visit [facility] Gastro[facility] [address] [facility] [address] [place] [address] Yves Mitchell MD [address] [facility] [address] [place] [address] Scheduled Procedures Name Priority Associated Diagnoses Date/Ti me ESOPHAGOGASTRODUODENOSCOPY Gastroesophageal reflux disease, unspecified whether esophagitis present Epigastric pain Colon cancer screening 01/14/2025 8:20 AM CDT COLONOSCOPY Gastroesophageal reflux disease, unspecified whether esophagitis present Epigastric pain Colon cancer screening 01/14/2025 8:20 AM CDT documented as of this encounter Visit Diagnoses Not on filedocumented in this encounter Care Teams Ski Binding Fitter And Repairer Relationship Specialty Start Date End Date Cruz Ybarra MD PCP - General Internal Medicine 09/07/15 documented as of this encounter
--- OUTSIDE RECORDS SUMMARY | 2025-01-09 14:16 | XMS_ITS ---
Author Organization [facility] Address [address] [address] Care Team Providers Care Contact Acid Plant Operator Helper Name Role Phone UNKNOWN, UNKNOWN Primary Care Provider Unavailab Carlota Gamez Unavailable [phone] Allergies Allergen (clinical drug ingredient) Drug/Non Drug [...] testing not done, pt not returning calls REASON FOR VISIT bottom of the feet are numb Medications Medication SIG (Take, Route, Fr equency, Duration) Notes Start Date End Date Status Spironolactone Activ e Furosemide Active Claritin Active Atorvastatin Calcium Active Potassium Chloride A ctive Omeprazole Active Olmesartan Medoxomil Active Problems Problem Type SNOMED Code ICD Code Onset Dates Problem Status W/U Status Risk Notes Problem [id number] Acquired unequal limb length (M21.70) Active confirmed Problem 47309372 Type 2 diabetes mellitus with other circulatory complications (E11.59) Active confirmed Problem [id number] Type 2 diabetes mellitus with other diabetic neurological complication (E11.49) Active confirmed Encounters Encounter Location Date Provider Diagnosis [facility] [address] [address] 01/29/2024 Carlota Victor Type 2 diabetes mellitus with other circulatory complications E11.59 ; Type 2 diabetes mellitus with other diabetic neurological complication E11.49 and Acquired unequal limb length M21.70 Assessments Encounter Date Diagnosis (ICD Code) Assessment [...] limb length study done. Plan Of Treatment Treatment Notes Assessment Notes Type 2 diabetes mellitus wit h other circulatory complications I recommended getting an TATI to evaluate the lower extremity blood flow in both legs. Acquired unequal limb length Evaluation today included a review of medical [...] to get the limb length study done. Next Appt Details Follow Up: Pending test resu lts,prn, Reason: Progress Notes * Carin HAQUE DDOB: [birth year] (58 yo F)Acc No.[id number]:01/29/2024 Progress Notes Patient: Carin CURRAN Provider: Tameka Victor DPM :1965 A ge:58 Y S ex:Female Date:01/29/2024 Address:[address] [place] [address] Pcp:UNKNOWN UNKNOWN Subjective: * Chief Complaints: * B ottom of the feet are numb * HPI: Ann Regan assisting with visit:: HPI/Rooming: Ann maldonado. Shahnaz torres reason for visit:: New Problem: [age] year old diabetic female PTO with chief complaint of B/L feet plantar numbness of years d uration. Since 2014, the great toe has felt like a rubber band has been wrapped on it. She states the feeling never went away, they have just gotten worse. She states from the toes down it is all numb. She does have a history of a VAC fusion. She states that her right thigh is numb. She states her symptoms. Used only be on the right and now it is a left also. Pt reports her RT great toe has reduced circulation. it is yellow compared to the LT great toe Last HA1c 6.6 last year. * Medical History: * Surgical History: R T ankle surgery for gait--is unsure what is was 03/2018RT hallux nail removal 2017Back fusion * Medications: T akingAtorvastatin Calcium Claritin Furosemide Spironolactone Potassium Chloride Omeprazole Olmesartan Medoxomil Taking Atorvastatin Calcium Taking Claritin Taking Furosemide Taking Spironolactone Taking Potassium Chloride Taking Omeprazole Taking Olmesartan Medoxomil DiscontinuedKetoconazole 2 % Cream 1 application to affected area on bottom of feet Topical Once a day Ciclopirox 8 % Solution 1 application to affected toenails daily. Every weekend, remove medicine with nail armenian remover. Topical Once a day Medication List reviewed and reconciled with the patientDiscontinued Ketoconazole 2 % Cream 1 application to affected area on bottom of feet Topical Once a day Discontinued Ciclopirox 8 % Solution 1 application to affected toenails daily. Every weekend, remove medicine with nail armenian remover. Topical Once a day Medication List reviewed and reconciled with the patient * Allergies: A Temo[Allergies Verified] Objective: * Vitals: * Examination: G eneral Examination: Constitutional / Appearance: N o acute distress , Well nourished, Appropriate personal hygiene. Mental status: C ooperative, Oriented to person, place and time, Mood and affect: normal, Judgement and intellect: normal with appropriate response to questions. Shoes today: S andals. L ower Extremity VASCULAR: : Pulses: D P and PT pulses, diminished, bilateral. Temperature gradient: S lightly decreased from proximal to distal, bilateral. Pedal hair: p resent, bilateral. Capillary refill at distal toes l ess than 5 seconds , bilateral. L ower Extremity DERM: : Skin: n o suspicious lesions, without interdigital maceration, no open sores, bilateral.. Nails: T here is some mild yellowish discoloration noted to the medial border of the right hallux nail. All other nails are unremarkable.. Hyperkeratotic lesions LEFT foot: n o significant hpk lesions noted. Hyperkeratotic lesions RIGHT foot: n o significant hpk lesions noted. L ower Extremity MSK: : Gait s low, wide-based gait. Foot type: B ilateral lower extremity exhibits p es planus foot type with decreased medial arch. Left lower extremity inspection and palpation: N o palpable masses or nodules noted. Adequate range of motion noted to the joints. No acute pain with palpation along the foot and ankle.. Right lower extremity inspection and palpation: N o palpable masses or nodules noted. Adequate range of motion noted to the joints. No acute pain with palpation along the foot and ankle.. LLD (limb length discrepancy) T he right lower extremity is longer than the left lower extremity.. L ower Extremity NEURO: : General sensation appears intact, bilateral. Muscle tone within normal limits, bilateral. Monofilament test (10 gram pressure) E xam of 01/28/2024: revealed intact sensation to, forefoot, left, r evealed absent sensation to at least two distinct locations of , multiple toes, right foot. Vibration perception: E xam of 01/28/2024: n oted intact per evaluation with 128Hz tuning fork applied to distal hallux compared to ipsilateral medial malleolus @ left foot, n oted absent per evaluation with 128Hz tuning fork applied to distal hallux compared to ipsilateral medial malleolus @ right foot. Assessment: * Assessment: 1. T ype 2 diabetes mellitus with other circulatory complications - E11.59 2 . T ype 2 diabetes mellitus with other diabetic neurological complication - E11.49 (Primary) 3 . A cquired unequal limb length - M21.70 Plan: * Treatment: 2. A cquired unequal limb length I maging: Limb Length Study Notes: Evaluation today included a review of medical [...] to get the limb length study done. * Procedure Codes: 3 044F HG A1C LEVEL LT 7.0% * Follow Up: P ending test results,prn * Images: * Sign off status: Completed true * Provider: Tameka Victor DPM Date: 01/29/2024 Generated for Samir moore/Mitul/Mindy on: 0 01/09/2025 02:16 PM CDT History and Physical Notes * HPI (History of Present Illness) Category Sub-Category Detail Notes Category Not es Primary reason for visit: New Problem: 60 yea r old diabetic female PTO with chief complaint of B/L feet plantar numbness of years duration. Since 2015, the great toe has felt like a rubber band has been wrapped on it. She states the feeling never went away, they have just gotten worse. She states from the toes down it is all numb. She does have a history of a VAC fusion. She states that her right thigh is numb. She states her symptoms. Used only be on the right and now it is a left also. Pt reports her RT great toe has reduced circulation. it is yellow compared to the LT great toe Last HA1c 6.6 last year MA assisting with visit: HPI/Rooming: Kayla Examination Category Sub-Category Detail Notes Category Not es General Examination Mental status: Cooperative, Oriented to person, place and time, Mood and affect: normal, Judgement and intellect: normal with appropriate response to questions Shoes today: Sandals Constitutional / Appearance: No acute di stress , Well nourished, Appropriate personal hygiene Lower Extremity VASCULAR: Pulses: DP and PT pulse s, diminished, bilateral Temperature gradient: Slightly decreased from proximal to distal, bilateral Pedal hair: present, bilateral Capillary refill at distal toes less maryam n 5 seconds , bilateral Lower Extremity NEURO: Monofilament test (10 gram pressure) Exam of 01/28/2024: revealed intact sensation to, forefoot, left, revealed absent sensation to at least two distinct locations of , multiple toes, right foot Vibration perception: Exam of 01/28/2024: noted intact per evaluation with 128Hz tuning fork applied to distal hallux compared to ipsilateral medial malleolus @ left foot, noted absent per evaluation with 128Hz tuning fork applied to distal hallux compared to ipsilateral medial malleolus @ right foot General sensation appears intact, bilate ral Muscle tone within normal limits , bilateral Lower Extremity MSK: Foot type: Bilateral l ower extremity exhibits pes planus foot type with decreased medial arch Left lower extremity inspect ion and palpation: No palpable masses or nodules noted. Dali quate range of motion noted to the joints. No acute pain with palpation along the foot and ankle. Right lower extremity inspec tion and palpation: No palpable masses or nodules noted. Dali quate range of motion noted to the joints. No acute pain with palpation along the foot and ankle. LLD (limb length discrepancy) The right lower extremity is longer than the left lower extremity. Gait slow, wide-based gai t Lower Extremity DERM: Skin: no suspici ous lesions, without interdigital maceration, no open sores, bilateral. Nails: There is some mild y ellowish discoloration noted to the medial border of the right hallux nail. All other nails are unremarkable. Hyperkeratotic lesions LEFT foot: no sig nificant hpk lesions noted Hyperkeratotic lesions RIGHT foot: no si gnificant hpk lesions noted
--- OUTSIDE RECORDS SUMMARY | 2025-01-09 14:16 | XMS_ITS | Data Portability ---
Author Organization [facility] Address [address] [place] [address] Care Team Providers Care Flight Hostess Name Role Phone INES WILSON Primary Care Provider Assessment Encounter Date Assessment Date Assessment LastModified by Organization Details LastModified Time 07/08/2022 07/08/2022 Annual gynecological exam performed. Patient will come back in a year unless there are new symptoms. [email or web address] Not available 07/08/2022 11:39:17 10/16/2023 10/16/2023 Annual gynecological exam performed. Patient will come back in a year unless there are new symptoms. [email or web address] Not available 10/16/2023 11:37:23 Plan of Treatment Reminders Order Date Submit Date Provider Last Modified By Organization Details Last Modified Time Details Appointments None recorded . Lab hbcab (hepatit is B core Ab) igm, serum 2023 024 [facility] (Lab), [address], [place], [address], 4 05:01:45 HBsAg (hepatit is B surface Ag), serum 2023 024 [facility] (Lab), [address], [place], [address], 4 05:01:45 hepatiti s C virus Ab, serum 2023 024 [facility] (Lab), [address], [place], [address], 4 05:01:45 unlisted lab - HIV 1/2 antigen/ antibody , reflex confirma tion 2023 024 [facility] (Lab), [address], [place], [address], 4 05:01:45 RPR (rapid plasma reagin), serum 2023 024 [facility] (Lab), [address], [place], [address], 4 05:01:45 genetic disease analysis , blood or tissue 2023 024 [employer], [facility] [address] , [place], [address], 5 05:00:57 lipid panel, blood 2021 022 [facility] (Lab), [address], [place], [address], 2 10:51:24 vitamin D, 25-hydro xy, total, serum 2021 022 [facility] (Lab), [address], [place], [address], 2 10:51:24 HbA1c (hemoglo bin A1c), blood 2021 022 [facility] (Lab), [address], [place], [address], 2 10:51:24 CBC w/ auto diff 2021 [facility] (Lab), [address], [place], [address], 2 10:51:24 CMP, serum or plasma 2021 022 [facility] (Lab), [address], [place], [address], 10:51:24 TSH, serum or plasma 2021 [facility] (Lab), [address], [place], [address], 2 07:38:50 Referral None recorded . Procedures None recorded . Surgeries None recorded . Imaging None recorded . Medication Orders None recorded . Patient TargetsNo targets recorded. Patient InstructionsNo instructions recorded. Reason for Referral None Reported. Results Created Date Observation Date Name Description Value Unit Range Abnormal Flag Note LastModifiedBy Organization Detail LastModifiedTime 05/01/2005/07/2020 surgi chuyita patho logy study surgical pathology View Report ACCES ONEIL #: [id number] Patie nt Name: RUDY SOARES Age-S ex-DO B: 54y F [birth year] Proce dure Date: 05/01 Acces oneil Date: 020 Pt Acct# : Repor t Date: 2019 Locat ion: OFFIC E Physi radhika( s): Peyton Ceron MD P A T H O L O G Y R E P O R T DIAGN OSIS: 1. Skin and subcu taneo us tissu e, excis ion: Epide rmoid cyst. 2. Endom etriu m, biops y: Atrop hic endom etriu m. Negat iman for hyper plasi a and malig ifeoma . Yeni Savage M.D. elect michelle anne 05/07 07:05 PM Gross Descr iptio n: 1. Recei deep in forma mami label ed Rudy smalls, vulva r cyst and consi sts of a 0.8 x 0.5 cm disru pted cysti c struc ture with a small amoun t of dark brown skin. The presu med base is inked blue, the tissu e is bisec rocio and entir reese submi tted into 1 casse tte, 2. 2. Recei deep in forma mami label ed Rudy ey Harri s, EMB are 2 x 1 x 0.2 cm of rutledge to red-b rown, hemor rhagi c, soft and rubbe ry tissu e fragm ents and blood . Entir reese submi tted. M/2A. (JOK, SS7,m bj) Micro scopi c Descr iptio n: Micro scopi c exami natio n is perfo rmed. Clini chuyita Histo ry: Abnor mal uteri ne and vagin al bleed ing, unspe cifie d (N93. 9) Speci men List: 1. Vulva r cyst 2. EMB End of Repor t Techn ical servi marivel provi ded by [facility] [employer], d/b/a [employer], [address] , [place] [address] Asim Stewart MD, Labor atorClutch DireJungleCents tor. Case revie wed and diagn osis rende red at [facility] [employer]era[employer], d/b/a [employer]ocod[employer], [address] [facility] [address], [facility] [place] [address] North Rivas MD, Labor Qiwi Post tor. CONFI DENTI AL Not Available [facility]) [address], [place], [address], 05/07/2020 20:07:09 07/08/20 22 07/08/2022 TSH, REFLE X FREE T4 TSH 2.64 uIU/m L 0.30-5 .33 Not Available [facility] (Lab) [address], [place], [address], 07/12/2022 07:38:50 07/08/20 22 07/08/2022 IMAGE GUIDE D PAP AND HPV REGAR DLESS image guided Pap, HPV regardless of Pap result SEE RESULT S BELOW CASE REPOR T: Cytol ogy Gynec ologi chuyita Repor t Case: [id number] Autho josé miguel coker Provi ritu: Peyton Ceron MD Colle cted: 07/08 1331 Order ing Locat ion: [place] Patho logreji Recei deep: 07/09 0250 First Scree n: Flory Farias , CT Speci men: Scree rey Pap - Image d, Cervi x STATE MENT OF ADEQU ACY: Satis facto ry for evalu ation Trans forma tion zone compo nent prese nt FINAL DIAGN OSIS: Negat iman for Intra epith elial Lesio n or Ketan dia (NIL) . Elect michelle fletcher jerica d by Flory Farias , CT on 07/13 at 10:04 AM ----- ----- ----- ----- ----- ----- ----- ----- ----- ----- ----- ----- ----- ----- ----- ----- ----- ---- HPV RESUL TS: HPV mRNA E6/E7 : No HPV mRNA Detec rocio NOTE: This high risk HPV mRNA assay detec ts fourt een high- risk HPV types (16, 18, 31, 33, 35, 39, 45, 51, 52, 56, 58, 59, 66, 68) witho ut diffe renti ation . COMME NT: Note: This speci men was revie wed by a Cytot echno logis t and/o r Patho logis t (as indic ated in this repor t) after evalu ation using the Thinp rep Imagi ng Syste m. CLINI CHUYITA INFOR MATIO N: Menst rual Statu s: LMP (if appli cable ): Clini chuyita Histo ry/Pr eviou s Pap: Type of Neopl kimmie (if appli cable ): Signi fican t Clini chuyita Findi ngs: Other Histo ry: Hormo ralph (if appli cable ): PAP EDUCA JOSE L NOTE: The Pap Test is a scree rey test with an inher ent false negat iman rate. Liqui d-bas ed sampl ing may decre ase, but will not elimi justo, false negat iman resul ts. A negat iman resul t does not precl ude the prese nce and/o r devel opmen t of disea se, since the prese nce of abnor mal cells in the sampl e depen ds on the locat ion of the lesio n and sampl ing techn ique. Vika nued regul ar scree rey is the best metho d of cance r preve ntion . If repor rocio cytol ogic findi ng do not corre late with physi chuyita and/o r histo rical findi ngs, furth er inves tigat ion is recom ventura d, as clini lisa hudson nted. Not Available [facility] (Lab) [address], [place], [address], 07/13/2022 11:06:53 10/16/19 24 10/16/2023 IMAGE GUIDE D PAP AND HPV REGAR DLESS image guided Pap, HPV regardless of Pap result SEE RESULT S BELOW CASE REPOR T: Cytol ogy Gynec ologi chuyita Repor t Case: [id number] Autho josé miguel coker Provi ritu: Ritika Zavala, CEZAR Colle cted: 10/16 1202 Order ing Locat ion: [place] Patho logy Recei deep: 10/17 0922 First Scree n: Angelika Castro Speci men: Scree rey Pap - Image d, Cervi x STATE MENT OF ADEQU ACY: Satis facto ry for evalu ation Trans forma tion zone compo nent prese nt FINAL DIAGN OSIS: Negat iman for Intra epith elial Lesio n or Ketan dia (NIL) . Elect mcihelle fletcher jerica d by Angelika Castro on 2023 at 8:34 PM ----- ----- ----- ----- ----- ----- ----- ----- ----- ----- ----- ----- ----- ----- ----- ----- ----- ---- HPV RESUL TS: HPV mRNA E6/E7 : No HPV mRNA Detec rocio NOTE: This high risk HPV mRNA assay detec ts fourt een high- risk HPV types (16, 18, 31, 33, 35, 39, 45, 51, 52, 56, 58, 59, 66, 68) witho ut diffe renti ation . COMME NT: This speci men was revie wed by a Cytot echno logis t and/o r Patho logis t (as indic ated in this repor t) after evalu ation using the Thinp rep Imagi ng Syste m. CLINI CHUYITA INFOR MATIO N: Menst rual Statu s: LMP (if appli cable ): Clini chuyita Histo ry/Pr eviou s Pap: Type of Neopl kimmie (if appli cable ): Signi fican t Clini chuyita Findi ngs: Other Histo ry: Hormo ralph (if appli cable ): PAP EDUCA JOSE L NOTE: The Pap Test is a scree rey test with an inher ent false negat iman rate. Liqui d-bas ed sampl ing may decre ase, but will not elimi justo, false negat iman resul ts. A negat iman resul t does not precl ude the prese nce and/o r devel opmen t of disea se, since the prese nce of abnor mal cells in the sampl e depen ds on the locat ion of the lesio n and sampl ing techn ique. Vika nued regul ar scree rey is the best metho d of cance r preve ntion . If repor rocio cytol ogic findi ng do not corre late with physi chuyita and/o r histo rical findi ngs, furth er inves tigat ion is recom ventura d, as clini lisa hudson nted. Not Available [facility] (Lab) [address], [place], [address], 10/19/2023 21:38:24 10/16/19 24 10/16/2023 TRICH OMONA S VAGIN SADE (RRNA ) trichomonas vaginalis ribosomal RNA (rrna) Negati ve negati ve Not Available [facility] (Lab) [address], [place], [address], 10/19/2023 21:38:24 10/16/19 24 10/16/2023 CT/GC (EFREN) , THINP REP VIAL chlamydia trachomatis, PCR Negati ve negati ve Not Available [facility] (Lab) [address], [place], [address], 10/19/2023 21:38:25 10/16/19 24 10/16/2023 CT/GC (EFREN) , THINP REP VIAL neisseria gonorrhoeae, PCR Negati ve negati ve Not Available [facility] (Lab) [address], [place], [address], 10/19/2023 21:38:25 Result Notes None recorded. Problems Name Problem SNOMED Code Status Onset Date Resolution Date Notes Provider Name and Address Organization Details Recorded Time Screening for malignant neoplasm of rectum Completed 201804/22/2021 Encounter for screening for malignant neoplasm of rectum;Rec orded Elsewhere: No Locatio n: [facility] rce: EHR Chroni c: N Practice ID: [id number] Billa ble Time: 01:00:00 PM Gabriela [facility] 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 12:36:47 Problem Notes None recorded. Procedures Surgical History Date Name Laterality Status Provider Name and Address Organization Details Recorded Time 06/28/20 23 Date of Last Mammogram completed Naty Guadarrama [facility] 10/16/2023 11:49:43 07/08/20 22 Date of Last Pap Smear completed Domi Gamez [facility] 03/16/2023 11:51:09 05/02/20 20 endometrial biopsy completed Domi Gamez [facility] 03/16/2023 11:50:07 05/01/20 20 Hysteroscopy completed Ap Ceron MD [address], [place], [address], [facility] 05/01/2020 13:35:25 05/01/20 20 Excision and closure completed Ap Ceron MD [address], [place], [address], [facility] 05/01/2020 13:34:36 11/28/19 20 endometrial biopsy completed Domijamarcus Gamez [facility] 03/16/2023 11:50:01 08/28/19 02 ligation of bilateral fallopian tubes completed Domijamarcus Gamez [facility] 03/16/2023 11:49:46 Imaging Results None recorded. Procedure Notes None recorded. Medical Equipment None Reported. Allergies No known drug allergies Medications Name Sig Start Date Stop Date Status Note LastModified by Organization Details LastModified Time multivita min tablet active Prescrib ed Elsewher e: Yes Loca tion: [facility] M odify By: [email or web address] z Encoun ter DateTime : 05/30/20 01:00:00 PM Not Available Not Available Not Available celecoxib 200 mg capsule 1 tablet the night before procedur e and 1 tablet 2 hours before the procedur e 05/23 completed Not Available Not Available Not Available cyclobenz aprine 10 mg tablet 07/08 completed Not Available Not Available Not Available furosemid e 40 mg tablet TAKE 1 TO 2 TABLETS BY MOUTH DAILY NEEDED FOR SWELLING . CONTINUE 20 MG DAILY 10/16 completed Not Available Not Available Not Available metolazon e 2.5 mg tablet active Not Available Not Available Not Available atorvasta tin 40 mg tablet 07/08 completed Not Available Not Available Not Available albuterol sulfate 0.63 mg/3 mL solution for nebulizat ion USE 1 VIAL VIA NEBULIZE R EVERY 4 TO 6 HOURS NEEDED FOR SHORTNES S OF BREATH OR WHEEZING active Not Available Not Available No t Available atorvasta tin 20 mg tablet active Not Available Not Available Not Available azithromy kerri 250 mg tablet 07/08 completed Not Available Not Available Not Available ibuprofen 800 mg tablet TAKE 1 TABLET BY MOUTH EVERY 6 HOURS NEEDED FOR PAIN 07/08 completed Not Available Not Available Not Available tizanidin e 4 mg tablet 07/08 completed Not Available Not Available Not Available fluconazo le 150 mg tablet 10/16 completed Not Available Not Available Not Available valacyclo vir 1 gram tablet TAKE 1 TABLET BY MOUTH TWICE DAILY NEEDED active Not Available Not Available No t Available hydrocodo ne 5 mg-acetam inophen 325 mg tablet TAKE 1 TABLET BY MOUTH EVERY 6 HOURS NEEDED FOR PAIN 07/08 completed Not Available Not Available Not Available meloxicam 15 mg tablet active Not Available Not Available Not Available ondansetr on HCl 4 mg tablet 1 tablet 2 hours before procedur e active Not Available Not Available No t Available prednison e 20 mg tablet 10/16 completed Not Available Not Available Not Available acetamino phen 300 mg-codein e 30 mg tablet TAKE 1 TABLET EVERY 6 HOURS NEEDED FOR PAIN 07/08 completed Not Available Not Available Not Available amlodipin e 5 mg tablet 07/08 completed Not Available Not Available Not Available sulfameth oxazole 800 mg-trimet hoprim 160 mg tablet TAKE 1 TABLET BY MOUTH TWICE DAILY FOR 7 DAYS active Not Available Not Available No t Available spironola ctone 25 mg tablet active Not Available Not Available No t Available ciclopiro x 8 % topical solution APPLY EXTERNAL LY TO AFFECTED TOENAILS DAILY FOR 120 DAYS. EVERY WEEKEND REMOVE MEDICINE WITH NAIL MOHAWK REMOVER 10/16 completed Not Available Not Available Not Available alprazola m 0.5 mg tablet 1 tablet 2 hours before procedur e 05/23 completed Not Available Not Available Not Available Zofran 8 mg tablet 1 tablet 2 hours before the procedur e. active Not Available Not Available No t Available amoxicill in 875 mg tablet TAKE 1 TABLET BY MOUTH TWICE DAILY FOR 7 DAYS 07/08 completed Not Available Not Available Not Available potassium chloride ER 20 mEq tablet,ex tended release(p art/cryst ) 10/16 completed Not Available Not Available Not Available Sandman D&RTouch Ultra Test strips TEST BLOOD SUGAR DAILY DIRECTED 10/16 completed Not Available Not Available Not Available benzonata te 100 mg capsule TAKE 1 CAPSULE BY MOUTH THREE TIMES DAILY FOR 10 DAYS 10/16 completed Not Available Not Available Not Available acyclovir 5 % topical ointment 07/08 completed Not Available Not Available Not Available dexametha sone 4 mg tablet TAKE 1 TABLET BY MOUTH TWICE DAILY FOR STREP PHARYNGI TIS 10/16 completed Not Available Not Available Not Available losartan 25 mg tablet 05/23 completed Not Available Not Available Not Available omeprazol e 20 mg capsule,d elayed release 10/16 completed Not Available Not Available Not Available aspirin 81 mg chewable tablet 07/08 completed Not Available Not Available Not Available codeine 10 mg-guaife nesin 100 mg/5 mL oral liquid TAKE 10 ML BY MOUTH EVERY 4 HOURS NEEDED FOR COUGH 10/16 completed Not Available Not Available Not Available lisinopri l 5 mg tablet take 1 tablet by oral route every day 07/08 completed Prescrib ed Elsewher e: Yes Loca tion: [facility] M odify By: [email or web address] z Encoun ter DateTime : 05/30/20 01:00:00 PM Not Available Not Available Not Available furosemid e 20 mg tablet 10/16 completed Not Available Not Available Not Available levofloxa kerri 500 mg tablet 10/16 completed Not Available Not Available Not Available levofloxa kerri 750 mg tablet TAKE 1 TABLET BY MOUTH EVERY DAY 10/16 completed Not Available Not Available Not Available methylpre dnisolone 4 mg tablets in a dose pack FOLLOW PACKAGE DIRECTIO NS 10/16 completed Not Available Not Available Not Available albuterol sulfate HFA 90 mcg/actua tion aerosol inhaler INHALE 2 PUFFS BY MOUTH EVERY 6 HOURS NEEDED FOR SHORTNES S OF BREATH active Not Available Not Available No t Available Vitamin D2 1,250 mcg (50,000 unit) capsule Take 1 capsule( s) every week by oral route. active Not Available Not Available No t Available ketoconaz ole 2 % topical cream APPLY 1 APPLICAT ION TOPICALL Y TO THE AFFECTED AREA ON BOTTOM OF FEET ONCE DAILY 10/16 completed Not Available Not Available Not Available fluticaso ne propionat e 50 mcg/actua tion nasal spray,mary alice pension active Not Available Not Available Not Available Xanax 1 mg tablet 1 tablet 2 hours prior to procedur e active Not Available Not Available No t Available loratadin e 10 mg tablet TAKE 1 TABLET BY MOUTH DAILY 10/16 completed Not Available Not Available Not Available amoxicill in 875 mg-potass ium clavulana te 125 mg tablet TAKE 1 TABLET BY MOUTH EVERY 12 HOURS FOR 7 DAYS 10/16 completed Not Available Not Available Not Available amoxicill in 500 mg-potass ium clavulana te 125 mg tablet TAKE 1 TABLET BY MOUTH EVERY 12 HOURS FOR STREP PHARNGIT IS 10/16 completed Not Available Not Available Not Available olmesarta n 5 mg tablet TAKE 2 TABLETS BY MOUTH DAILY active Not Available Not Available No t Available nitrofura ntoin monohydra te/macroc rystals 100 mg capsule TAKE 1 CAPSULE BY MOUTH TWICE DAILY FOR 5 DAYS active Not Available Not Available No t Available eszopiclo ne 2 mg tablet 10/16 completed Not Available Not Available Not Available Multi-Vit pal HP/Minera ls active Not Available Not Available Not Available lisinopri l 05/23 completed Not Available Not Available Not Available Gavilyte- C 240 gram-22.7 2 gram-6.72 gram-5.84 gram oral solution 05/23 completed Not Available Not Available Not Available potassium chloride ER 20 mEq tablet,ex tended release active Not Available Not Available Not Available Trelegy Ellipta 100 mcg-62.5 mcg-25 mcg powder for inhalatio n INHALE 1 PUFF BY MOUTH DAILY 10/16 completed Not Available Not Available Not Available OneTouch Ultra2 Meter USE DIRECTED 10/16 completed Not Available Not Available Not Available OneTouch Delica Plus Lancet 33 gauge USE TO TEST BLOOD SUGAR DAILY 10/16 completed Not Available Not Available Not Available Mounjaro 2.5 mg/0.5 mL subcutane ous pen injector ADMINIST ER 2.5 MG UNDER THE SKIN EVERY 7 DAYS active Not Available Not Available No t Available Vitals Date Recorded Body height Body mass index (BMI) Body weight Systolic blood pressure Diastolic blood pressure Provider Name and Address Organization Details Last Updated DateTime 04/22/2021 164.47 cm 58.2 kg/m2 196679.5 5 g 136 mm[Hg] 81 mm[Hg] [facility] 1 12:36:27 Date Recorded Body height Body mass index (BMI) Body weight Systolic blood pressure Diastolic blood pressure Provider Name and Address Organization Details Last Updated DateTime 07/08/2022 164.47 cm 62.4 kg/m2 025876.3 6 g 137 mm[Hg] 91 mm[Hg] [facility] 2 11:42:20 Date Recorded Body height Body mass index (BMI) Body weight Systolic blood pressure Diastolic blood pressure Provider Name and Address Organization Details Last Updated DateTime 07/08/2022 164.47 cm 62.3 kg/m2 248193.8 5 g 132 mm[Hg] 84 mm[Hg] Gloria Barnes [facility] 2 12:29:26 Date Recorded Body height Body mass index (BMI) Body weight Systolic blood pressure Diastolic blood pressure Provider Name and Address Organization Details Last Updated DateTime 10/16/2023 164.47 cm 55.5 kg/m2 599805.0 7 g 146 mm[Hg] 80 mm[Hg] Naty Thierry [facility] 4 11:40:07 Date Recorded Body height Body mass index (BMI) Body weight Systolic blood pressure Diastolic blood pressure Provider Name and Address Organization Details Last Updated DateTime 05/23/2020 164.47 cm 59.4 kg/m2 615131.7 g 136 mm[Hg] 83 mm[Hg] Stephanie Bolajackie [facility] 0 10:10:42 Social History None recorded. Functional Status None recorded. Mental Status None recorded. Family History Relationship Description Onset Age of this Age Resolved Age Notes LastModified by Organization Details LastModified Time Mother Hypercholest erolemia [email or web address] Not available 2019 13:45:44 Mother Hypertensive disorder [email or web address] Not available 2019 13:45:51 Sister Hypercholest erolemia smcaley Not available 2019 13:45:58 Sister Hypertensive disorder smcaley Not available 2019 13:46:08 Brother Hypercholest erolemia smcaley Not available 2019 13:46:15 Brother Hypertensive disorder smcaley Not available 2019 13:46:22 Medical History Condition Response Allergies (Food, seasonal, environmental ) Y Other Y Blood Transfusion N Drug/Latex Allergies/Reactions N Breast Cancer N Dermatologic Disorders N Lung Disease N Defects or Inherited Disease N Breast Problem N Gestational Diabetes N Hematologic disorders N Anesthesia Complications N History of STI Y Deep Vein Thrombosis N Polycystic ovary syndrome N Anxiety Disorder N Autoimmune disease N Arthritis N Infertility N Polyps N Acid Reflux (GERD) Y History of abnormal pap N Cancer N Stroke N Varicosities N Neurologic/Epilepsy N Endometriosis N High Cholesterol Y Headaches N Fibromyalgia N Kidney Disease N Heart Problems Y Kidney or Bladder Problems N Thyroid Problems N GI Problems N Eating Disorder N Anemia N Art (IVF or FET) N Psychiatric Illness N Ovarian Cancer N Diabetes Y Pulmonary (TB, Asthma) N Hepatitis/Liver Disease N No Past Medical History N Eczema N Urinary Tract Infection N Abuse/Domestic Violence N Asthma N Trauma/Violence N Depression/ depression N Heart Disease N Pre-Eclampsia N Hypertension Y Osteoporosis N Thrombophilias N Gynecological History Statement/Question Response Date of Last Mammogram 06/28/2023 Sexually Active? N STIs/STDs Y Menses Monthly N Date of DEXA bone scan HPV Vaccine N Date of Last Pap Smear 07/08/2022 Sexual Problems? N Current Control Method Tubal Ligat ion LMP Approximate Obstetrics History GPAL:G 3 P 3 0 0 3 Type Value Full Term 3 Living 3 Total 3 Past Encounters Encounter ID Performer Location Encounter Start Date Encounter Closed Date Diagnosis/Indication Diagnosis SNOMED-CT Code Diagnosis ICD10 Code Diagnosis Note [id number] pA Ceron MD [facility] [address] [address] 01/21/2020 09:44:33 01/21/2020 15:47:25 Polyp of corpus uteri 88948785 N84.0 Lesion of vulva 04951919 6 N90.89 Postmenopa usal bleeding 98470140 N95.0 This patient is a 54-year-ol d female with postmenopa usal bleeding, a lesion within the endometriu m that is likely a polyp, and a vulvar lesion. We have agreed to proceed with hysterosco py D&C with polypectom y and resection of vulvar lesion. She understand s the risk, benefits, and alternativ es. She is completed the informed consent process and is ready to proceed. [id number] Ap Ceron MD [facility] [address],[place] [address] 01/21/2020 09:45:30 01/21/2020 11:21:32 Pain in pelvis 27459373 R10.2 D25.9 R93.89 [id number] Ap Ceron MD [facility] [address],[place] [address] 05/01/2020 09:00:41 05/01/2020 15:00:02 Submucous leiomyoma of uterus 94140747 D25.0 Cyst of vulva 81781970 N 90.7 excision of vulvar cyst was performed, diagnostic hysterosco py was performed. No polyp was observed. There was a submucous fibroid. [id number] MD Zaida Abarca [address],[place] [address] 05/23/2020 10:04:16 05/23/2020 10:39:18 Postmenopausal bleeding [id number] N95.0 This patient is a 55-year-ol d female who presents for postmenopa usal bleeding. She had a hysterosco py. There was believed to be a polyp in the endometriu m. No polyp was observed. Sampling of the tissue revealed normal tissue. We are going to observe her for more bleeding. We spent 15 minutes face-to-fa ce. She spoke of a fungal infection she gets to increase is in her abdomen and flanks. Over-the-c ounter recommenda tions were made for antifungal creams. [id number] MD Zaida Abarca [address],[place] [address] 04/22/2021 12:03:56 04/23/2021 09:34:10 Vaginal discharge problem [id number] N89.9 this patient reports stool per vagina. No rectovagin al fistula could be observed on exam. She did not tolerate the exam well. She needs to be evaluated for rectovagin al fistula by subspecial ist. We agreed to refer to Colorectal surgery. Spent more than 30 minutes the patient developing this complex problem. [id number] EVAN Nava Weott [address],[place] [address] 07/08/2022 09:30:05 07/08/2022 13:51:44 Obesity [id number] E66.9 57yo Presents for initial weight management consultati Anatoly is currently at her highest weight 371lb BMI 62Her weight gain has been increased with recent life events such as job changes and divorceShe has never tried any weight loss medication She eats breakfast daily, often eats high calorie snacks throughout the day. Drinks soda and fast foods often.She swims and walks for exercise, about 1 hour 3 times per week. She often struggles with knee and back pain.She sleeps about 6-8 hours a night, does not feel restedShe was diagnosed with sleep apnea 10 years ago - has not been using her CPAP for the past year. States she is concerned about negative SE from a CPAP machine. Past medical hx : trigeminy (follows with cardiologi st), HTN, elevated cholestero l, Prediabete s/diabetes (not currently on any medication for this), thyroid issues, GERDSurgic al hx : BTL, procedure on ankleShe is postmenopa usal Today we reviewed exercise recommenda tions-150 minutes of moderate-i ntense exercise per week, with at least 2 sessions per week of strength training (light weights, resistance bands, etc)-Dieti can appointmen t scheduled : Decrease soda intake, decrease fast foods/frie d foods, healthier choices. Increase fruits/veg tables-Lab s ordered-We ight loss med [id number]|2025-01-09 14:16:00|2025-01-09 14:15:00|XMS_ITS|AIDEG DAERIBERTO|External Medical Summaries|[id number]|" Progress note - 01/29/2024 Created on: January 09, 2025 Carin Haque : 1965 Sex: Female Author Organization [facility] Address [address] [facility] [address] [place] [address] Care Team Providers Care Flight Hostess Name Role Phone UNKNOWN, UNKNOWN Primary Care Provider Unavailab Carlota Gamez Unavailable [phone] REASON FOR VISIT LLS Final Attempt Encounters Encounter Location Date Provider Diagnosis [facility] [address] [facility] [address] [place] [address] 01/29/2024 Carlota Victor Plan Of Treatment No Information Progress Notes * Carin HAQUE DDOB: [birth year] (58 yo F)Acc No.[id number]:01/29/2024 Patient: Henrique Carin SMILEY :1965 A ge:58 Y S ex:Female Address:[address] [place] [id number] * true * Date: Generated for Samir moore/Mitul/eTransmitting on: 0 01/09/2025 02:15 PM CDT "
--- OUTSIDE RECORDS SUMMARY | 2025-01-09 14:16 | XMS_ITS | Clinical Summary ---
Author Organization [facility] Address [facility] [place] [address] Care Team Providers Care Clinical Team Lead Name Role Phone Cruz Ybarra MD Primary Care Provider [phone] Allergies Active Allergy Reactions Criticality Noted Date Comments Amlodipine Swelling Medium 03/05/2020 Lisinopril Cough Low 10/18/2019 Medications loratadine 10 MG tablet Take 10 mg by mouth daily. Active furosemide 20 MG tablet Take 20 mg by mouth daily. Active olmesartan 5 MG tablet Take 10 mg by mouth daily. Active omeprazole 20 MG capsule Take 20 mg by mouth daily. Active potassium chloride CR 20 MEQ tablet Take 20 mEq by mouth daily. Active multi vitamin/minerals tablet Take 1 tablet by mouth daily. Active Active Problems Problem Noted Date Diagnosed Date Pneumonia due to COVID-19 virus 04/12/2021 Acute respiratory failure with hypoxia ([facility]) 04/12/2021 COVID-19 virus infection 04/12/2021 Obstructive sleep apnea 12/11/2020 Overview (04/12/2021): 12/14/2010 SLEEP STUDY RECORDS FROM [facility] SCANNED->ANTONIA->CPAP STARTED Right arm pain 12/11/2020 Overview (04/12/2021): 12/16 MRI CSPINE->Right paracentral herniation C5-6.->ARR NSURG Perimenopausal 06/12/2020 Primary osteoarthritis involving multiple joints 06/12/2020 Arthritis of right subtalar joint 05/08/2020 Palpitations 03/23/2020 Overview (04/12/2021): 03/16 holter per cardio Cyst of ovary 11/26/2019 Disorder of uterus 11/26/2019 Hypertrophy of uterus 11/26/2019 Postmenopausal bleeding 11/26/2019 Chronic pain of right ankle 12/01/2017 Chronic idiopathic constipation 02/22/2017 Onychia of toe 05/01/2016 Plantar fasciitis 05/01/2016 Venous insufficiency 09/17/2015 Overview (04/12/2021): 09/12 BLE VBFS->No evidence of deep or superficial vein thrombosis involving the bilateral lower extremities Gastroesophageal reflux disease without esophagi tis 09/14/2015 Overview (04/12/2021): 04/13 HIDA SCAN NL Hx of coagulation disorder 09/14/2015 Overview (04/12/2021): 09/12 ? DETAILS->DECLINED HEME OPINION AT THIS TIME Bilateral low back pain without sciatica 016 Essential hypertension 09/07/2015 Hyperlipidemia LDL goal <100 09/07/2015 Overview (04/12/2021): 09/12 [id number]->START ATORV 20 Morbid obesity with body mass index of 50.0-59.9 in adult 09/07/2015 Prediabetes 09/07/2015 Overview (04/12/2021): A1C -- 09/12 6.2 -- 03/16 6.7 Family History Medical History Relation Comments Cancer Father Heart Disease Mother Hypertension Mother Stroke Mother Relation Status Comments Father Mother Social History Tobacco Use Types Packs/Day Years Used Date Smoking Tobacco: Never Smokeless Tobacco: Never Alcohol Use Standard Drinks/Week Comments No 0 (1 standard drink = 0.6 oz pur e alcohol) Comments No Sex and Gender Information Value Date Recorded Sex Assigned at Female 09/12/2024 7:28 PM RESIDENT ATHLETIC TRAINER Legal Sex Female 9:52 PM CDT Gender Identity Not on file Sexual Orientation Not on file Last Filed Vital Signs Vital Sign Reading Time Taken Comments Blood Pressure 142/67 09/12/2024 9:21 PM RESIDENT ATHLETIC TRAINER Pulse 68 09/12/2024 9:21 PM RESIDENT ATHLETIC TRAINER Temperature 36.8 C (98.2 F) 09/12/2024 7:21 PM RESIDENT ATHLETIC TRAINER Respiratory Rate 20 09/12/2024 9:21 PM RESIDENT ATHLETIC TRAINER Oxygen Saturation 98% 09/12/2024 9:21 PM RESIDENT ATHLETIC TRAINER Inhaled Oxygen Concentration - - Weight 150.6 kg (332 lb) 09/12/2024 7:21 PM RESIDENT ATHLETIC TRAINER Height 165.1 cm (5' 5 ) 09/12/2024 7:21 PM RESIDENT ATHLETIC TRAINER Body Mass Index 55.25 09/12/2024 7:21 PM RESIDENT ATHLETIC TRAINER Plan of Treatment Health Maintenance Due Date Last Done Comments Colorectal Cancer Screening Colonoscopy (10 Years) 1965 Annual Physical 1966 Hepatitis C 1981 Pneumococcal Vaccine: 50+ Years (1 of 1 - PCV) 2013 Zoster Vaccines (1 of 2) 2013 RSV Immunization or 60+ Years (1 - Risk 60-74 years 1-dose series) 2023 Mammogram Screening 01/14/2024 01/13/2022, 02/22/2017, 10/12/2015 COVID-19 Vaccine ( season) 2024 Cervical Cancer Screening Pap Smear (Age 30 to 64) Every 3 Years 10/16/2026 10/16/2023, 10/16/2023, 10/16/2023, Additional history exists Cervical Cancer Screening Pap with HPV Testing (Age 30 to 64) Every 5 Years 10/16/2028 10/16/2023 Cervical Cancer Screening with HPV 10/16/2028 DTaP, Tdap and Td Vaccines (2 - Td or Tdap) 07/07/2033 07/07/2023 Meningococcal B Vaccine Aged Out No l onger eligible based on patient's age to complete this topic Meningococcal Vaccine Aged Out No vibha kyle eligible based on patient's age to complete this topic RSV Immunizations Under 20 Months Aged Out No longer eligible based on patient's age to complete this topic Insurance [facility] Advance Directives * POLST (Latest Code Status on File) Date Activated Date Inactivated Comments 04/12/2021 6:13 PM 04/19/2021 7:37 PM Question Answer Comments Cardiopulmonary Resuscitatio n (CPR) If patient has no pulse and is not breathing: ATTEMPT Resuscitation CPR Medical Interventions when N OT in Cardiopulmonary Arrest (If patient is found with a pulse and/or is breathing): Selective Treatment - Do NOT Intubate * Full Code Date Activated Date Inactivated Comments 04/12/2021 5:10 PM 04/12/2021 6:13 PM Care Teams Clinical Team Lead Relationship Specialty Start Date End Date Cruz Ybarra MD [address] [place] [id number] PCP - General INTERNAL MEDICINE 09/12/24
--- OUTSIDE RECORDS SUMMARY | 2025-01-09 14:17 | XMS_ITS | Clinical Summary ---
Author Organization [facility] Address [address] [place] [address] Care Team Providers Care Tax Specialist Name Role Phone Cruz Ybarra MD Primary Care Provider [phone] Ap Ceron MD Unavailable [phone] Allergies Active Allergy Reactions Criticality Noted Date Comments Amlodipine Edema,Swelling Medium 03/05/2020 Lisinopril Cough Low 10/18/2019 Losartan Other (See comments) Low 10/18/2019 Severe back pain but patient takes anyway Severe back pain Severe back pain but patient takes anyway Medications omeprazole (PriLOSEC) 40 mg capsule omeprazole 40 mg capsule,delayed release Active loratadine (CLARITIN) 10 mg tablet Take 1 tablet (10 mg total) by mouth daily Active furosemide (LASIX) 20 mg tabletIndicatio ns:Edema, lower extremity Take 1 tablet (20 mg total) by mouth 2 (two) times a day 180 tablet 3 0 Active olmesartan (BENICAR) 5 mg tablet Take 2 tablets (10 mg total) by mouth daily 0 Active atorvastatin (LIPITOR) 20 mg tablet 3 Active spironolactone (ALDACTONE) 25 mg tabletIndicatio ns:Edema, lower extremity Take 1 tablet (25 mg total) by mouth daily 30 tablet 3 3 Active albuterol HFA (PROVENTIL HFA,VENTOLIN HFA,PROAIR HFA) 90 mcg/actuation inhaler Inhale 2 puffs every 6 (six) hours as needed 3 Active albuterol 0.63 mg/3 mL nebulizer solution USE 1 VIAL VIA NEBULIZER EVERY 4 TO 6 HOURS NEEDED FOR SHORTNESS OF BREATH OR WHEEZING 3 Active tirzepatide (Mounjaro) 5 mg/0.5 mL pen injector Inject 5 mg under the skin once a week 4 Active potassium chloride ER 20 mEq CR tabletIndicatio ns:Symptomatic PVCs Take 1 tablet (20 mEq total) by mouth daily 90 tablet 3 4 Active metOLazone (ZAROXOLYN) 2.5 mg tabletIndicatio ns:Bilateral lower extremity edema Take 1 tablet (2.5 mg total) by mouth every other day 90 tablet 3 4 Active clindamycin (CLEOCIN T) 1 % lotion Apply topically 2 (two) times a day 60 mL 5 Active lactulose (CEPHULAC) 20 gram packet Take 1 packet (20 g total) by mouth 3 (three) times a day as needed (As needed to have a bowel movement every 2 days maximum.) 90 packet 2 5 Active Active Problems Problem Noted Date Diagnosed Date Chest tightness 02/06/2024 Left carotid bruit 02/06/2024 Cough in adult 03/30/2023 Shortness of breath 03/30/2023 Palpitations 07/09/2021 Symptomatic PVCs 07/09/2021 ANTONIA on CPAP 07/09/2021 Hyperlipidemia LDL goal <70 07/09/2021 Morbid obesity with BMI of 60.0-69.9, adult 06/28 Valvular regurgitation 07/09/2021 Morbid obesity 07/09/2021 Other constipation 05/26/2021 Encounters Date Type Department Care Team Description 12/06/2024 6:18 AM CDT - 12/06/2024 9:23 AM CDT Emergency [facility] Emergency Department [address] [place] [address] Folliculitis (Primary Dx); Chronic constipation Discharge Disposition: Discharge to home or self care from Last 3 Months Medical History Medical History Date Comments Hypertension Heart murmur Hyperlipidemia Diabetes mellitus (HCC) Sleep apnea Arthritis Bigeminy Hypokalemia Family History Medical History Relation Name Comments Alzheimer's disease Father Cancer Father Alzheimer's disease Mother Stroke Mother Relation Name Status Comments Father (Age 82) Mother (Age 78) Social History Tobacco Use Types Packs/Day Years Used Date Smoking Tobacco: Never Smokeless Tobacco: Never Tobacco Cessation:Counseling Given: Not Answered Alcohol Use Standard Drinks/Week Comments Not Currently 0 (1 standard drink = 0.6 oz pur e alcohol) Personal Safety Answer Date Recorded Have you ever been in or are you currently in a harmful physical or emotional relationship or is someone making you feel afraid or unsafe? Denies 12/06/2024 Comments Unknown Sex and Gender Information Value Date Recorded Sex Assigned at Not on file Legal Sex Female 8:32 AM FORESTRY ADVISER Gender Identity Female 06/01/2024 6:12 PM CDT Sexual Orientation Not on file Obstetrics History Last Filed Vital Signs Vital Sign Reading Time Taken Comments Blood Pressure 132/66 12/06/2024 9:20 AM CDT Pulse 66 12/06/2024 9:20 AM CDT Temperature 36.7 C (98.1 F) 12/06/2024 9:20 AM CDT Respiratory Rate 16 12/06/2024 9:20 AM CDT Oxygen Saturation 96% 12/06/2024 9:20 AM CDT Inhaled Oxygen Concentration - - Weight 150.6 kg (332 lb) 12/06/2024 6:11 AM CDT Height 165.1 cm (5' 5 ) 12/06/2024 6:11 AM CDT Body Mass Index 55.25 12/06/2024 6:11 AM CDT Plan of Treatment Health Maintenance Due Date Last Done Comments Albumin Creatinine Ratio, Urine 1963 Cervical Cancer Screening 1963 Colon Cancer Screening-Colonoscopy 1963 Depression Screening 1963 Hepatitis C Screening 1963 Dilated Eye Exam 1963 Foot Exam 1963 Hepatitis B Screening 1981 Regular Well Visit/Exam 18-64 1981 Pneumococcal vaccine <65 (1 of 2 - PCV) 1982 Zoster Vaccine (1 of 2) 2013 Breast Cancer Screening-Mammogram 02/22/2018 02/22/2017, 10/12/2015, 04/18/2014 Lipid Panel 02/05/2025 02/06/2024, 12/28, 07/09/2021, Additional history exists Hemoglobin A1C 06/12/2025 12/11/2024, 090 04/2024, 02/06/2023 eGFR 12/06/2025 12/06/2024, 05/30, 04/10/2020 DTaP/Tdap/Td Vaccine (2 - Td or Tdap) 07/07/2033 07/07/2023 Influenza Vaccine Completed 05/06/2024, , 07/25/2022, Additional history exists Procedures Procedure Name Priority Date/Time Associated Diagnosis Comments XR KUB ED 12/06/2024 7:03 AM CDT EGFR STAT 12/06/2024 6:49 AM CDT DIFFERENTIAL AUTO STAT 12/06/2024 6:4 9 AM CDT COMPREHENSIVE METABOLIC PANEL STAT 12/06/2024 6:49 AM CDT CBC WITH AUTO DIFFERENTIAL STAT 12/06/2024 6:49 AM CDT POCT GLUCOSE DEVICE Routine 12/06/2024 6 :13 AM CDT POCT LIPID PANEL Routine 02/06/2024 9:05 AM CDT Hyperlipidemia LDL goal <70 SCREENING MAMMOGRAM Routine 04/18/2014 4 :06 PM CDT from Last 3 Months or Most Recently Relevant to Health Maintenance Results * XR Kub (Abd 1 View) (12/06/2024 7:03 AM CDT) Anatomical Region Laterality Modality Body, Abdomen N/A Computed Radiogr aphy 12/06/2024 7:09 AM CDT Impressions 12/06/2024 7:36 AM CDT Bowel gas pattern is within normal limits. There is no obstruction. Lung bases are clear. Dictated by: Ghassan Cooley MD The radiology attending physician has personally reviewed this study, and had reviewed and/or edited this written report and agrees with it. Electronically signed by: Chan John M.D. Narrative 12/06/2024 7:36 AM CDT EXAMINATION: Abdomen, one view. HISTORY: Constipation COMPARISON: 06/28/2024 Procedure Note Chan John MD PhD - 12/06/2024 EXAMINATION: Abdomen, one view. HISTORY: Constipation COMPARISON: 06/28/2024 IMPRESSION: Bowel gas pattern is within normal limits. There is no obstruction. Lung bases are clear. Dictated by: Ghassan Cooley MD The radiology attending physician has personally reviewed this study, and had reviewed and/or edited this written report and agrees with it. Electronically signed by: Chan John M.D. Yves Patel RIP TAILER IMG XR PROCEDURES Final R esult * eGFR (12/06/2024 6:49 AM CDT) eGFR >90 >=60 mL/min/1. 73 m2 Comment: Interpretive Data Reference Interval Normal >/= 90 mL/min/1.73m2 Mildly decreased* 60 - 89 mL/min/1.73m2 Mildly to moderately decreased 45 - 59 mL/min/1.73m2 Moderately to severely decreased 30 - 44 mL/min/1.73m2 Severely decreased 15 - 29 mL/min/1.73m2 Kidney Failure < 15 mL/min/1.73m2 *Relative to young adult level Estimated glomerular filtration rate is determined by the 2020 CKD-EPI equation recommended by the National Kidney Foundation (A Unifying Approach to GFR Estimation: Recommendations of the NKF-ASK Task Force on Reassessing the Inclusion of Race in Diagnosing Kidney Disease, JASN 2020). The CKD-EPI equation should not be used for patients with unstable renal function and has not been validated in children and those over 70. Current interpretive data was last reviewed 2021. Blood 12/06/2024 6:49 AM CDT 12/06/2024 8:17 AM CDT us Yves Patel NP LAB BLOOD ORDERABLES Priti garcia Result [facility] Department [place] [address] * Differential, auto (12/06/2024 6:49 AM CDT) Pathologist [facility] Neutrophil abs 3.86 1.50 - 6.50 K/cumm Imm gran abs 0.02 0.00 - 0.10 K/cumm [facility] Lymphocyte abs 2.19 0.80 - 3.30 K/cumm [facility] Monocyte abs 0.61 0.20 - 0.80 K/cumm [facility] Eosinophil abs 0.16 0.00 - 0.50 K/cumm [facility] Basophil abs 0.03 0.00 - 0.10 K/cumm [facility] Neutrophil pct 56.2 % [facility] Comment: Interpretive Data Percent cell count reference ranges are not reported, since discordance with absolute values may lead to misinterpretation of CBC data. Current Interpretive Data was last revised on 2017. Imm gran pct 0.3 % [facility] Comment: Interpretive Data Percent cell count reference ranges are not reported, since discordance with absolute values may lead to misinterpretation of CBC data. Current Interpretive Data was last revised on 2017. Lymphocyte pct 31.9 % [facility] Comment: Interpretive Data Percent cell count reference ranges are not reported, since discordance with absolute values may lead to misinterpretation of CBC data. Current Interpretive Data was last revised on 2017. Monocyte pct 8.9 % [facility] Comment: Interpretive Data Percent cell count reference ranges are not reported, since discordance with absolute values may lead to misinterpretation of CBC data. Current Interpretive Data was last revised on 2017. Eosinophil pct 2.3 % [facility] Comment: Interpretive Data Percent cell count reference ranges are not reported, since discordance with absolute values may lead to misinterpretation of CBC data. Current Interpretive Data was last revised on 2017. Basophil pct 0.4 % [facility] Comment: Interpretive Data Percent cell count reference ranges are not reported, since discordance with absolute values may lead to misinterpretation of CBC data. Current Interpretive Data was last revised on 2017. Blood 12/06/2024 6:49 AM CDT 12/06/2024 8:17 AM CDT Yves Patel NP LAB BLOOD ORDERABLES Priti l Result Performing Organization Address City/[facility]/ZIP Co de Phone Number [facility] Department [place] [address] * CBC with auto differential (12/06/2024 6:49 AM CDT) Pathologist [facility] WBC 6.87 3.80 - 9.90 K/cumm Hgb 13.0 11.9 - 15.5 g/dL [facility] Hct 40.0 35.6 - 45.5 % [facility] Plt 201 150 - 400 K/cumm [facility] MPV 11.4 9.1 - 12.3 fL [facility] RBC 4.79 3.90 - 5.20 M/cumm [facility] MCV 83.5 81.3 - 96.4 fL [facility] MCH 27.1 27.1 - 33.3 pg [facility] MCHC 32.5 32.3 - 35.7 g/dL [facility] RDW CV 14.4 11.1 - 14.9 % [facility] RDW SD 43.4 35.7 - 48.1 fL [facility] NRBC abs 0.00 0.00 - 0.01 K/cumm [facility] Blood 12/06/2024 6:49 AM CDT 12/06/2024 8:17 AM CDT Yves aPtel NP LAB BLOOD ORDERABLES Priti l Result Performing Organization Address City/[facility]/ZIP Co de Phone Number [facility] Department [place] [address] * Comprehensive metabolic panel (12/06/2024 6:49 AM CDT) Sodium 140 135 - 145 mmol/L Potassium, pl 3.4 3.3 - 4.9 mmol/L [facility] Chloride 102 97 - 110 mmol/L [facility] CO2 29 22 - 32 mmol/L [facility] Anion gap 9 2 - 15 mmol/L [facility] BUN 16 6 - 25 mg/dL [facility] Creatinine 0.74 0.60 - 1.10 mg/dL [facility] Glucose 106 70 - 199 mg/dL [facility] Comment: Interpretive Data Fasting glucose >/= 126 mg/dl is diagnostic for diabetes. Fasting is defined as no caloric intake for at least 8 hours. Fasting glucose between 100 mg/dl to 125 mg/dl is diagnostic of prediabetes. In a patient with classic symptoms of hyperglycemia or hyperglycemic crisis, a random glucose >/= 200 mg/dl is diagnostic for diabetes. In the absence of unequivocal hyperglycemia, results should be confirmed by repeat testing. The classification and Diagnosis of Diabetes Diabetes Care 2021; 46: S19-S40. Current interpretive data was last revised 2022. Calcium 9.2 8.5 - 10.3 mg/dL [facility] Bilirubin, total 0.6 0.1 - 1.2 mg/dL [facility] Protein, pl 7.5 6.5 - 8.5 g/dL [facility] Albumin 3.7 3.5 - 5.0 g/dL [facility] Alk phos 106 40 - 130 Units/L [facility] ALT 21 7 - 45 Units/L [facility] AST 26 10 - 45 Units/L [facility] Blood 12/06/2024 6:49 AM CDT 12/06/2024 8:17 AM CDT us Yves Patel NP LAB BLOOD ORDERABLES Priti garcia Result [facility] Department [place] [address] * POCT glucose (12/06/2024 6:13 AM CDT) Glucose, POC 117 70 - 199 mg/dL Blood 12/06/2024 6:13 AM CDT 12/06/2024 6:13 AM CDT us Notinfile Unknown LAB POCT ORDERABLES - DEVICE F inal Result BALTAZAR MACARIO [facility] Department [place] [address] * POCT lipid panel (02/06/2024 9:05 AM CDT) Cholesterol, POC 233 mg/dL HDL, POC 36 mg/dL Triglycerides, POC 165 mg/dL LDL Cholesterol POC 163 mg/dL Chol/HDL Ratio, POC 4.5 Non-HDL Cholesterol, POC 196 mg/dL Cholesterol Total, POC 233 mg/dL Capillary blood 02/06/2024 9 :05 AM CDT us Baljit Ochoa MD POINT OF CARE TEST ORDERA BLES Final Result * Screening Mammogram (04/18/2014 4:06 PM CDT) Anatomical Region Laterality Modality Breast N/A Mammography 04/18/2014 4:06 PM CDT Narrative 04/22/2014 10:16 AM CDT ALISSA DEJESUS M.D. FINAL REPORT ACC# Date Time Exam [id number] Apr 18, 2014 16:06:00 [facility] [id number] Screening Mamm Bilat Technologist(s): Tina Ambrocio; ; EXAMINATION: Mammogram Technique: Bilateral Full-Field Digital Screening Mammogram was performed. Views obtained: bilateral craniocaudal and bilateral mediolateral oblique. Computer Aided Detection was performed with Softdesk.3 version 9.3. Mammogram Findings: The present examination has been compared to a prior imaging study performed at [facility] on 04/12/2012. There are scattered fibroglandular densities. There is no suspicious abnormality in either breast. IMPRESSION: Annual screening mammography is recommended. OVERALL FINAL ASSESSMENT: BI-RADS CATEGORY 1: Negative. Requested By: Dictated By: ALISSA DEJESUS M.D. on Apr 22 2014 10:16A This document has been electronically signed by: ALISSA DEJESUS M.D. on Apr 22 2014 10:16A Procedure Note Provider, MD Deneen - 12/23/2016 ALISSA DEJESUS M.D. FINAL REPORT ACC# Date Time Exam [id number] Apr 18, 2014 16:06:00 [facility] [id number] Screening Mamm Bilat Technologist(s): Tina Ambrocio; ; EXAMINATION: Mammogram Technique: Bilateral Full-Field Digital Screening Mammogram was performed. Views obtained: bilateral craniocaudal and bilateral mediolateral oblique. Computer Aided Detection was performed with Softdesk.3 version 9.3. Mammogram Findings: The present examination has been compared to a prior imaging study performed at [facility] on 04/12/2012. There are scattered fibroglandular densities. There is no suspicious abnormality in either breast. IMPRESSION: Annual screening mammography is recommended. OVERALL FINAL ASSESSMENT: BI-RADS CATEGORY 1: Negative. Requested By: Dictated By: ALISSA DEJESUS M.D. on Apr 22 2014 10:16A This document has been electronically signed by: ALISSA DEJESUS M.D. on Apr 22 2014 10:16A Historical Provider MD YOUNG MAMMO PROCEDURES Priti l Result from Last 3 Months or Most Recently Relevant to Health Maintenance Insurance [facility] FEDERAL [facility] [employer] Care Teams Tax Specialist Relationship Specialty [place] [id number] [address] PCP - General 01/29/20 Ap Ceron MD [address] [place] [address] Referring Physician Obstetrics and Gynecology 04/23/21
--- OUTSIDE RECORDS SUMMARY | 2025-01-09 14:17 | XMS_ITS | Referral Summary ---
Author Organization [facility] Address [address] [place] [address] Care Team Providers Care Research And Development Technician Name Role Phone Cruz Ybarra MD Primary Care Provider [phone] Ap Ceron MD Unavailable [phone] Encounters Date Type Department Care Team Description 12/06/2024 6:18 AM CDT - 12/06/2024 9:23 AM CDT Emergency [facility] Emergency Department [address] [place] [address] Folliculitis (Primary Dx); Chronic constipation Discharge Disposition: Discharge to home or self care from Last 3 Months Allergies Active Allergy Reactions Criticality Noted Date [...] 07/09/2021 Morbid obesity 07/09/2021 Other constipation 05/26/2021 Social History Tobacco Use Types Packs/Day Years [...] on file Legal Sex Female 8:32 AM [employer] Gender Identity Female 06/01/2024 6:12 PM CDT Sexual Orientation Not on file Last Filed [...] 12/06/2024 6:11 AM CDT Plan of Treatment Not on file Procedures Procedure Name Priority Date/Time Associated Diagnosis [...] signed by: Chan John M.D. Yves Patel NP IMG XR PROCEDURES Final R esult * [...] of Race in Diagnosing Kidney Disease, JASN 202). The CKD-EPI equation should not be used for patients with unstable renal function and has not been validated in children and those over 70. Current interpretive data was last reviewed 2021. Blood 12/06/2024 6:49 AM CDT 12/06/2024 8:17 AM CDT Yves Patel NP LAB BLOOD ORDERABLES Priti garcia Result [facility] [address] Department [place] [address] * Differential, auto (12/06/2024 6:49 AM CDT) Pathologist [facility] Neutrophil abs 3.86 1.50 - 6.50 K/cumm Imm gran abs 0.02 0.00 - 0.10 K/cumm [facility] Lymphocyte abs 2.19 0.80 - 3.30 K/cumm [facility] Monocyte abs 0.61 0.20 - 0.80 K/cumm [facility] Eosinophil abs 0.16 0.00 - 0.50 K/cumm [facility] Basophil abs 0.03 0.00 - 0.10 K/cumm [facility] Neutrophil pct 56.2 % [facility] Comment: Interpretive Data Percent cell count reference ranges are not reported, since discordance with absolute values may lead to misinterpretation of CBC data. Current Interpretive Data was last revised on 2017. Imm gran pct 0.3 % [facility] Comment: Interpretive Data Percent cell count reference ranges are not reported, since discordance with absolute values may lead to misinterpretation of CBC data. Current Interpretive Data was last revised on 2017. Lymphocyte pct 31.9 % [facility] Comment: Interpretive Data Percent cell count reference ranges are not reported, since discordance with absolute values may lead to misinterpretation of CBC data. Current Interpretive Data was last revised on 2017. Monocyte pct 8.9 % [facility] Comment: Interpretive Data Percent cell count reference ranges are not reported, since discordance with absolute values may lead to misinterpretation of CBC data. Current Interpretive Data was last revised on 2017. Eosinophil pct 2.3 % [facility] Comment: Interpretive Data Percent cell count reference ranges are not reported, since discordance with absolute values may lead to misinterpretation of CBC data. Current Interpretive Data was last revised on 2017. Basophil pct 0.4 % [facility] Comment: Interpretive Data Percent cell count reference ranges are not reported, since discordance with absolute values may lead to misinterpretation of CBC data. Current Interpretive Data was last revised on 2017. Blood 12/06/2024 6:49 AM CDT 12/06/2024 8:17 AM CDT us Yves Patel NP LAB BLOOD ORDERABLES Priti garcia Result [facility] [address] Department [place] [address] * CBC with auto differential (12/06/2024 6:49 AM CDT) WBC 6.87 3.80 - 9.90 K/cumm Hgb 13.0 11.9 - 15.5 g/dL [facility] Hct 40.0 35.6 - 45.5 % [facility] Plt 201 150 - 400 K/cumm [facility] MPV 11.4 9.1 - 12.3 fL [facility] RBC 4.79 3.90 - 5.20 M/cumm [facility] MCV 83.5 81.3 - 96.4 fL [facility] MCH 27.1 27.1 - 33.3 pg [facility] MCHC 32.5 32.3 - 35.7 g/dL [facility] RDW CV 14.4 11.1 - 14.9 % [facility] RDW SD 43.4 35.7 - 48.1 fL [facility] NRBC abs 0.00 0.00 - 0.01 K/cumm [facility] Blood 12/06/2024 6:49 AM CDT 12/06/2024 8:17 AM CDT us Yves Patel NP LAB BLOOD ORDERABLES Priti radha Result [facility] [address] Department [place] [address] * Comprehensive metabolic panel (12/06/2024 6:49 AM CDT) Sodium 140 135 - 145 mmol/L Potassium, pl 3.4 3.3 - 4.9 mmol/L [facility] Chloride 102 97 - 110 mmol/L [facility] CO2 29 22 - 32 mmol/L [facility] Anion gap 9 2 - 15 mmol/L [facility] BUN 16 6 - 25 mg/dL [facility] Creatinine 0.74 0.60 - 1.10 mg/dL [facility] Glucose 106 70 - 199 mg/dL [facility] Comment: Interpretive Data Fasting glucose >/= 126 [...] 2022. Calcium 9.2 8.5 - 10.3 mg/dL [facility] Bilirubin, total 0.6 0.1 - 1.2 mg/dL [facility] Protein, pl 7.5 6.5 - 8.5 g/dL [facility] Albumin 3.7 3.5 - 5.0 g/dL [facility] Alk phos 106 40 - 130 Units/L [facility] ALT 21 7 - 45 Units/L [facility] AST 26 10 - 45 Units/L [facility] Blood 12/06/2024 6:49 AM CDT 12/06/2024 8:17 AM CDT Yves Patel PACKING MACHINE INSPECTOR LAB BLOOD ORDERABLES Priti l Result Performing Organization Address [facility]/ZIP Co de Phone Number [facility] Department [place] [address] * POCT glucose (12/06/2024 6:13 AM CDT) Glucose, POC 117 70 - 199 mg/dL Blood 12/06/2024 6:13 AM CDT 12/06/2024 6:13 AM CDT us Notinfile Unknown LAB POCT ORDERABLES - DEVICE F inal Result Performing Organization Address [facility] de Phone Number [facility] [place] [address] * POCT lipid panel (02/06/2024 9:05 AM [...] M.D. FINAL REPORT ACC# Date Time Exam [id number] Apr 18, 2014 16:06:00 [facility] [id number] Screening Mamm Bilat Technologist(s): Tina Ambrocio; ; EXAMINATION: Mammogram Technique: Bilateral Full-Field Digital Screening Mammogram was performed. Views obtained: bilateral craniocaudal and bilateral mediolateral oblique. Computer Aided Detection was performed with [employer] 1.3 version 9.3. Mammogram Findings: The present examination has been compared to a prior imaging study performed at [facility] on 04/12/2012. There are scattered fibroglandular densities. [...] M.D. FINAL REPORT ACC# Date Time Exam [id number] Apr 18, 2014 16:06:00 [facility] [id number] Screening Mamm Bilat Technologist(s): Tina Ambrocio; ; EXAMINATION: Mammogram Technique: Bilateral Full-Field Digital Screening Mammogram was performed. Views obtained: bilateral craniocaudal and bilateral mediolateral oblique. Computer Aided Detection was performed with [employer] 1.3 version 9.3. Mammogram Findings: The present examination has been compared to a prior imaging study performed at [facility] on 04/12/2012. There are scattered fibroglandular densities. [...] Most Recently Relevant to Health Maintenance Insurance [facility] Care Teams Research And Development Technician Relationship Specialty [place] [id number] [address] [place] [address] PCP - General 01/29/20 Ap Ceron MD [address] [place] [address] Referring Physician Obstetrics and Gynecology 04/23/21
== END 2025-01-09 14:10 | disposition home or self-care (01) ==
LOC: ANHIMG 14:12
DX: Z12.31 Encounter for screening mammogram for malignant neoplasm of breast (principal)
CPT/HCPCS: 77063; 77067